=== PATIENT | male | born 1955 | race Caucasian/White ===

== ENCOUNTER 2023-06-27 00:26 | Observation (INO) | payer MEDICARE, SELFPAY ==
[2023-06-26 22:09] VITALS: BP 128/78
[2023-06-26] MEDS: GlucaGen 1 MG IV (22:35)
[2023-06-26 22:36] VITALS: BMI 27.5
--- NOTE | 2023-06-26 23:15 | CON.MD ---
Consultation - Medical
-
dictated.
had choking episode about 3 hrs ago, with dyspnea, desaturations, vomited and now feels much better, still some retrosternal discomfort.
laryngoscopy normal
possibly still has esophageal food impaction, or esophageal spasm, also with significant heart disease.
plans observation. if still symptomatic in AM, may need either esophagram or upper endoscopy by GI.
call us if we can be of further service.
--- NOTE | 2023-06-26 23:21 | ED.GENMED ---
History of Present Illness
General
Chief Complaint: Throat Problem
Source: patient and family
Time Seen by Provider: 06/26/23 22:14
Nursing documentation reviewed up to this point in time: agreed with
Travel History
Have you had any contact with someone who has COVID-19?: No
Do you have any symptoms of coronavirus? Fever > 100 degrees, chills, cough, shortness of breath, sore throat, loss of taste or smell, muscle aches, or headache?: No
History of Present Illness
History of Present Illness:
This is a pleasant 67-year-old male that presents with a food bolus stuck somewhere in his airway/upper digestive track. Around 7:30 PM, patient was eating riley and [place] sprouts. He felt food get stuck and had difficulty breathing. His
states that she slapped him hard on the back and the food moved allowing him to breathe with much effort. Patient was hiccuping. Unable to tolerate saliva. GI consulted but they felt that since it was airway, recommended ENT. I spoke with
Ayaan, who came in to the emergency department to evaluate him. Minutes prior to his arrival, patient had a coughing spasm and the bolus moved allowing him to breathe easier. Patient had bedside endoscopy, and no foreign body was seen in the upper
airway. Patient resting comfortably at this point.
Past History
Past History
ED Past Medical History: Asthma, CAD, CHF, COPD, GERD, HTN, Hypercholesterolemia and Other (Kidney stones, Gastritis, Esophagitis,)
ED Past Surgical History: Cholecystectomy and Orthopedic
Social History
Tobacco: Non-smoker
Alcohol: Daily ([place]ito 6-8 oz)
Drug: None
Personal:
Living: with family
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
Family History
Family History: Other; Negative Sudden
Review of Systems
Review of Systems
Allergies reviewed?: Yes
All Other Systems: ROS reviewed and negative except as documented in HPI and ROS
Respiratory: Reports trouble breathing
ABD/GI: Reports nausea
: Reports no symptoms
Neurological: Reports no symptoms
Phy Exam
General Physical Exam
General Presentation: moderate distress
General age: appears stated age
General Skin: diaphoretic
General Habitus: normal
General Mental: anxious and tearful
General Hydration: appears well hydrated
ENT Exam
ENT Exam: EOMI, pharynx normal, neck supple and normocephalic
Eye Exam
Eye Exam: PERRL, cornea clear and conjunctiva normal
Cardiovascular Exam
Cardiovascular Exam: tachycardia
Pulmonary Exam
Pulmonary Exam: other (Stridor present)
Respiratory Effort: tachypnea
Oxygen Status: oxygen 2 liters via NC
Respirations: labored
Gastrointestinal Exam
Gastrointestinal Exam: normal bowel sounds, non tender, soft, no organomegaly, no pulsatile mass and non distended
Neurological Exam
Neurological Exam: alert, oriented x3, no motor deficits and speech normal
Musculoskeletal Exam
Musculoskeletal Exam: full ROM and no edema
Skin Exam
Skin Exam: normal color, warm/dry, no rash and no petechia
Psychiatric Exam
Psychiatric Exam: normal mood/affect
Course
Orders/Labs/Results
Orders:
Orders
06/26/23 22:17
Glucagon [GlucaGen] 1 mg .ROUTE .STK-MED ONE
06/26/23 22:26
Glucagon [GlucaGen] 1 mg .ROUTE .STK-MED ONE
06/26/23 22:34
Glucagon [GlucaGen] 1 mg IV NOW STA
06/26/23 22:39
Chest X-ray Portable [CR Chest Portable - 1 View] Stat
Comment:
Reason For Exam: food impaction
Reason Study Needs to be Portable: Patient Unstable
If Reason is Other, explain: food impaction
06/26/23 22:58
EKG [Electrocardiogram (*1)] Urgent
Reason for Study: Shortness of Breath
06/26/23 22:59
EKG- Treatment ONCE
06/26/23 23:30
Complete Blood Count/With Diff Urgent
Comprehensive Metabolic Panel Urgent
PTT Urgent
Prothrombin Time Urgent
Troponin I Urgent
Abnormal Lab Results
06/26/23
23:30
WBC 12.6 H 10^3/uL
(4.8-10.8)
RBC 4.40 L 10^6/uL
(4.70-6.10)
MCH 32.0 H pg
(27.0-31.0)
Abs Immat Gran (auto) 0.1 H 10^3/uL
(0-0.05)
Absolute Neuts (auto) 9.0 H 10^3/uL
(1.4-6.5)
Absolute Monos (auto) 0.9 H 10^3/uL
(0.1-0.6)
Absolute Eos (auto) 1.0 H 10^3/uL
(0-0.7)
Lymphocytes % 12.1 L %
(20.5-51.1)
Eosinophils % 8.0 H %
(0-6)
BUN 25 H mg/dl
(9-20)
Creatinine 2.1 H mg/dL
(0.7-1.3)
Glucose 100 H mg/dl
(70-99)
06/26/23 23:30
06/26/23 23:30
Vital Signs
Initial and Last Documented VS:
Initial Vital Signs
Temp Pulse Resp BP Pulse Ox
97.6 F 76 28 128/78 95
06/26/23 22:09 06/26/23 22:09 06/26/23 22:09 06/26/23 22:09 06/26/23 22:09
Last Documented Vital Signs
Temp Pulse Resp BP Pulse Ox
97.6 F 99 16 108/79 96
06/26/23 22:09 06/26/23 23:45 06/26/23 23:45 06/26/23 23:40 06/26/23 23:45
MDM/Problems Addressed
Differential Diagnosis Includes:
Airway including foreign body, esophageal foreign body
MDM/Problems Addressed:
67-year-old male with swallowed foreign body causing him moderate respiratory distress
Chronic conditions affecting care: CAD
*Radiology
Radiology exam reviewed: preliminary read by ED provider
*Pulse Oximetry
Patient hypoxic: yes
*EKG
Interpreted by ED Provider?: Yes
EKG Intrepretation Date: 06/26/23
Interpretation: normal
Heart Rate: 95
Rate: normal
Rhythm: sinus
[place]: normal axis
Interval: normal interval
QRS Pattern: normal QRS
Ischemia: no ischemia
*Amusement Park Ride Mechanic Interpretation
Rate: tachycardiac
Heart Rate: 106
Rhythm: sinus
*Critical Care Note
Total Time (30-74mins, 75-104mins- exclusive of procedures): 45
comment:
Critical care statement: A total of 45 minutes of critical care time was provided for this patient. This time is separate from time utilized to perform the aforementioned documented procedures. Aggregate critical care time includes only time
during which I was engaged in work directly related to the patient's care, as described above, whether at the bedside or elsewhere in the Emergency Department.
Patient Management
Discussion with other providers: Service Line Coordinator (Spoke with Dr. Hines who did not see any foreign body in his airway at this point. Request admission to observe)
Escalation/DeEscalation of care consider admission/obs:
Given patient's cardiac history and the extremis he was in at the beginning of his visit, patient to be brought into the hospital for observation and continued monitoring.
ED Attending Note
-
Portions of this chart may have been created with voice recognition software.� Occasional wrong word or��sound alike� substitutions may have occurred due to the inherent limitations of voice recognition software.
Discharge Plan
Departure
Patient Disposition: Admit
Date of Disposition: 06/26/23
Time of Disposition: 23:33
Admit to: Telemetry
Presentation/result/management discussed w/ accepting MD/DO: Hospitalist
Condition: Good
Discharge Problem:
Esophageal foreign body, Acute respiratory distress
Prescriptions:
No Action
furosemide 40 MG tablet
20 mg PO DAILYPRN PRN (Reason: edema, weight gain)
carvedilol 12.5 MG tablet
12.5 mg PO BID
Patient Comments:
02/13/21 - PT STATED DOSE STILL AT COREG 12.5MG BID
aspirin 81 MG tablet,delayed release (DR/EC)
81 mg PO DAILY
pantoprazole 40 MG tablet,delayed release (DR/EC)
40 mg PO DAILY
multivitamin with folic acid [Tab-A-Flakito] 1 TABLET tablet
1 tab PO DAILY
sildenafil [Viagra] 100 MG tablet
100 mg PO DAILYPRN PRN (Reason: sexually activity) Qty: 0 0RF
Rx Instructions:
Do not take for 1 week post DC. Do not take within 24 hours of nitroglycerin.
nitroglycerin 0.4 MG tablet, sublingual
0.4 mg sublingual [id number] PRN (Reason: CHEST PAIN)
amlodipine 2.5 mg Tablet
2.5 mg PO HS
acetaminophen 500 mg Tablet
1,000 mg PO Q6H PRN (Reason: mild pain)
ezetimibe [Zetia] 10 mg Tablet
10 mg PO HS
levalbuterol tartrate 45 mcg/actuation Hfa Aerosol Inhaler
2 puff INHALATION R Q4 PRN (Reason: sob)
Xarelto 20 mg Tablet
20 mg PO QPM
Hold Instructions: Resume on 03/15/23. HOLD UNTIL FRIDAY evening ~48hrs post op
Entresto 49-51 mg Tablet
1 tab PO BID
fluticasone propion-salmeterol 45-21 mcg/actuation Hfa Aerosol Inhaler
2 puff INHALATION R BID PRN (Reason: sob)
Medical Marijuana
1 dose PO HS PRN (Reason: mild pain/sleep)
Patient Comments:
PT USES BOTH VAPE PEN AND BUD GONZALEZ, FILLS AT [facility]
Referrals:
Hussain Nunez CRNP [Family Provider] -
Interventions
Interventions:
*Risk Screen - Suicide Last Done: 06/26/23 23:35
*General Assessment Last Done: 06/26/23 22:41
*Neglect/Abuse Screening Last Done: 06/26/23 22:41
ED- Fall Risk Assessment Last Done: 06/26/23 23:35
*ED COVID-19 Vaccine History Last Done: 06/26/23 22:41
ED-EENT Assessment Last Done: 06/26/23 22:44
ED- Pulmonary Assessment Last Done: 06/26/23 23:35
[2023-06-26 23:37] LABS: % Basophils 0.6 % (0-2); % Immature Granulocytes 0.4 % (0-0.5); % Lymphocytes 12.1 % (20.5-51.1); % Neutrophils 71.9 % (42.2-75.2); Absolute Basophils 0.1 10^3/uL (0-0.2); Absolute Immature Granulocytes 0.1 10^3/uL (0-0.05); Absolute Lymphocytes 1.5 10^3/uL (1.2-3.4); Absolute Monocytes 0.9 10^3/uL (0.1-0.6); Hematocrit 40.8 % (39.0-52.0); Hemoglobin 14.1 g/dL (13.0-18.0); Mean Corp Hgb Conc. 34.6 g/dL (33.0-37.0); Mean Corpuscular Volume 92.7 fL (80.0-94.0); Mean Platelet Volume 9.3 fL (7.4-10.4); Nucleated Red Blood Cells % 0 % (-); Platelet Count 388 10^3/uL (130-400); Red Cell Dist. Width 13.2 % (11.5-14.5); White Blood Cell Count 12.6 10^3/uL (4.8-10.8)
[2023-06-26 23:40] VITALS: BP 108/79
[2023-06-26 23:55] LABS: INR 1.55; PT 18.7 Sec (11.4-14.6)
[2023-06-26 23:56] LABS: APTT 40.4 Sec (23.4-35.0)
[2023-06-26 23:58] LABS: ALT (SGPT) 16 U/L (0-50); AST (SGOT) 29 U/L (17-59); Albumin 4.3 g/dl (3.5-5.0); Alkaline Phosphatase 59 U/L (38-126); Blood Urea Nitrogen 25 mg/dl (9-20); Calcium 9.7 mg/dl (8.4-10.2); Carbon Dioxide 28 mmol/L (22-30); Chloride 103 mmol/L (98-107); Estimated Creatinine Clearance 38 ml/min; Glucose 100 mg/dl (70-99); Potassium 3.7 mmol/L (3.5-5.1); Sodium 137 mmol/L (135-145); Total Bilirubin 0.7 mg/dl (0.2-1.3); Total Protein 6.8 g/dl (6.3-8.2); eGFR 34.08
[2023-06-27] VITALS (7 sets, daily range): BP systolic 101–121; BP diastolic 67–93; BMI 26.7; BMI 27.3
[2023-06-27 00:01] LABS: Troponin I < 0.012 ng/ml
--- NOTE | 2023-06-27 00:14 | HPS.HSE ---
Family Physician
-
Family Physician: ANIL Gómez
Chief Complaint
-
Shortness of breath after stuck food bolus
History of Present Illness
Patient is a pleasant [age] years old with history of paroxysmal A-fib, CHF, hypertension, hyperlipidemia who came to the ER with food bolus stuck in his airway which happened around 7:30 p.m. while he is eating riley, patient was having coughing,
nausea, vomiting, difficulty breathing, while in the ER patient had severe coughing episodes and he felt the food bolus moved and he started breathing normally.
Patient was seen by ENT in the ER and had a bedside endoscopy with no foreign body seen in the upper airway.
Chest x-ray came back shows no acute finding.
Patient with history of atrial fibrillation, I was told by ED physician that oxygen dropped to 70s during the coughing episodes.
Patient will be admitted overnight observation and will be covered with Augmentin for concern of aspiration.
Medical History
Past Medical History
Past Medical History: Reports Arrhythmia, GERD, HTN, Hypercholesterolemia and Other
Additional Past Medical History:
mergent laparotomy for bowel obstruction with extended right colectomy ileostomy and had a scheduled robotic ileostomy closure on 03/26.
Past Surgical History: Reports Cholecystectomy and Orthopedic
Social History
Tobacco: Non-smoker
Alcohol: Daily
Drug: None
Personal:
Living: With Family
Family History
Family History: Sudden
Allergies / Home Medications
Allergies reflects when Allergies were last updated in [employer].
Home Medications with original date entered in [employer]
Allergy/Medication List:
Allergies
Allergy/AdvReac Type Severity Reaction Status Date / Time
amoxicillin Allergy Nausea / Verified 06/26/23 22:38
Vomiting
anise oil Allergy Rash/SOB Verified 06/26/23 22:38
doxycycline Allergy Vomiting Verified 06/26/23 22:38
meperidine HCl [From Demerol] Allergy Nausea Verified 06/26/23 22:38
pollen extracts Allergy nasal Verified 06/26/23 22:38
congestion,
watery eyes
atorvastatin [From Lipitor] AdvReac Mild Unknown Verified 06/26/23 22:38
rosuvastatin [From Crestor] AdvReac Mild Unknown Verified 06/26/23 22:38
codeine [Codeine] AdvReac UPSET Verified 06/26/23 22:38
STOMACH
pentazocine [From Talwin] AdvReac Confusion, Verified 06/26/23 22:38
hallucinations
Home Medications
furosemide 40 mg tablet 20 mg PO DAILYPRN PRN edema, weight gain 10/01/17
carvedilol 12.5 mg tablet 12.5 mg PO BID Blood pressure 02/11/19
aspirin 81 mg tablet,delayed release 81 mg PO DAILY Blood clot prevention/tx 10/14/19
multivitamin with folic acid 400 mcg tablet (Tab-A-Flakito) 1 tab PO DAILY Supplement 10/14/19
pantoprazole 40 mg tablet,delayed release 40 mg PO DAILY Gastrointestinal issue 10/14/19
sildenafil 100 mg tablet (Viagra) 100 mg PO DAILYPRN PRN sexually activity ##0 10/15/19
nitroglycerin 0.4 mg sublingual tablet 0.4 mg sublingual [id number] PRN CHEST PAIN 02/13/21
acetaminophen 500 mg tablet 1,000 mg PO Q6H PRN mild pain 07/03/22
amlodipine 2.5 mg tablet 2.5 mg PO HS 07/03/22
ezetimibe 10 mg tablet (Zetia) 10 mg PO HS 07/03/22
fluticasone propionate 45 mcg-salmeterol 21 mcg/actuation HFA inhaler 2 puff inhalation R BID PRN sob 07/03/22
levalbuterol tartrate 45 mcg/actuation aerosol inhaler 2 puff inhalation R Q4 PRN sob 07/03/22
rivaroxaban 20 mg tablet (Xarelto) 20 mg PO QPM 07/03/22
sacubitril 49 mg-valsartan 51 mg tablet (Entresto) 1 tab PO BID 07/03/22
Medical Marijuana 1 dose PO HS PRN mild pain/sleep 06/26/23
Review of Systems
-
A 12 point ROS was completed and negative except as noted: Yes
Constitutional: Denies Fever, Weight Gain, Weight Loss, Fatigue or Sleep Disturbance
EENT: Reports Sore Throat; Denies Tearing, Mouth Pain, Mouth Swelling or Runny Nose
Respiratory: Reports Cough and Trouble Breathing; Denies Hemoptysis
Cardiac: Reports Chest Pain, Diaphoresis and Palpitations; Denies Syncope
Abdomen/GI: Reports Nausea and Vomiting; Denies Abdominal Pain, Diarrhea, Constipated, Bloody Stools or Black Stools
: Denies Dysuria, Frequency, Flank Pain, Incontinence, Difficulty Voiding, Urgency, Bleeding or Dark Urine
Musculoskeletal: Denies Joint Pain, Joint Swelling, Muscle Pain, Muscle Stiffness or Edema
Skin: Denies Itching or Rash
Neurological: Denies Dizzy, Headache, Weakness or Numbness
Endocrine: Denies Polyuria, Polydipsia or Temp Intolerance
Hematologic/Lymphatic: Denies Bleeding, Swollen Glands or Bruising
Psych: Reports Calm; Denies Depression, Anxiety or Panic Disorder
Physical Exam
Vital Signs
Vital Signs
Temp Pulse Resp BP Pulse Ox
97.6 F 99 16 108/79 96
06/26/23 22:09 06/26/23 23:45 06/26/23 23:45 06/26/23 23:40 06/26/23 23:45
Physical Exam
General: Well Developed, Well Nourished, No Apparent Distress, Comfortable and Good Appetite; No Pain, Chills or Sweats
HEENT: NormoCephalic, Moist mucous membranes, Atraumatic, Good Dentition, PERRLA, Nose Appears Normal and Ears Appear Normal
Respiratory: Rales
Cardiac: S1/S2 and Regular Rhythm
Breast: Deferred by me
GI: Soft, Non Tender, Non Distended and Normal Bowel Sounds
Genito-urinary: Deferred by me
Musculoskeletal: No Clubbing, No Cyanosis and No Edema
Skin: Warm; No Rash, Jaundice, Ulcers, Lesions or Decubitus Ulcers
Neuro: Awake, Alert, Oriented, AO x 3, No Motor Deficits, Nonfocal/grossly intact and Cranial Nerves Intact
Hematologic/Lymphatic: No Lymphadenopathy
Psych: Calm
Laboratory Results
-
06/26/23 23:30
06/26/23 23:30
Laboratory Results
PT 18.7 Sec (11.4-14.6) H 06/26/23 23:30
INR 1.55 06/26/23 23:30
APTT 40.4 Sec (23.4-35.0) H 06/26/23 23:30
Total Bilirubin 0.7 mg/dl (0.2-1.3) 06/26/23 23:30
AST 29 U/L (17-59) 06/26/23 23:30
ALT 16 U/L (0-50) 06/26/23 23:30
Alkaline Phosphatase 59 U/L (38-126) 06/26/23 23:30
Troponin I < 0.012 ng/ml 06/26/23 23:30
Data Reviewed
-
Diagnostic Radiology: Report Reviewed by me
CT Scan: Report Reviewed by me
Medical Tests (Nuc Med, Echo, EKG etc): Report Reviewed by me
Lab Data: Labs Reviewed by me
Old Records: Reviewed
Impression/Plan
-
IMPRESSION:
Patient is 67 years old with history of paroxysmal A-fib and CHF came to the ER with respiratory distress secondary to food bolus possible airway which has been cleared in the ER and bedside endoscopy in ED shows patent airway, will be admitted as
observation.
PLAN:
Acute hypoxic respiratory failure secondary to food bolus.
Cleared in the ER with frequent coughing and vomiting.
Patient feeling better.
Seen by ENT and bedside endoscopy shows no evidence of foreign body in the airway.
Currently continue appropriate oxygen saturation.
Continue playground monitor.
Augmentin for aspiration (no true allergy to amoxicillin, patient has side effect nausea and vomiting, will order Zofran).
Repeat chest x-ray in a.m.
Possible discharge tomorrow if still
Paroxysmal atrial fibrillation
Patient currently sinus rhythm
Troponin negative
hospital monitor
Continue carvedilol and Xarelto
History of hyperlipidemia
Continue statin
History of hypertension
Continue home meds
Chronic diastolic CHF
Continue carvedilol.
Continue Entresto
No evidence of volume overload
Echo from 2020 showed Normal left ventricular chamber size and overall normal systolic function; left
�ventricular ejection fraction is 60-65% by visual assessment.
CODE STATUS: Full code
DVT prophylaxis: Xarelto
Diet: Cardiac
[2023-06-27] MEDS: XARELTO 20 MG PO (00:55)
[2023-06-27] MEDS: COREG 12.5 MG PO ×2 (00:55→09:18)
[2023-06-27] MEDS: ENTRESTO 49 MG/51 MG 1 TAB PO ×2 (00:55→09:18)
[2023-06-27] MEDS: ATIVAN 0.5 MG IV (00:58)
[2023-06-27] MEDS: AUGMENTIN 200 MG/5 ML 500 MG PO ×2 (01:58→09:29)
[2023-06-27] MEDS: TYLENOL 650 MG PO (02:00)
--- NOTE | 2023-06-27 02:53 | PTCARENOTE ---
Patient received from the ED via stretcher. Patient ambulated into the room. AAOx3, VSS. 95% on RA. Patient complaining of pain from coughing. Has a frequent, dry cough with white/clear sputum. Able to take PO medications with water, see MAR.
Patient made comfortable in the room and call cancino is within reach.
[2023-06-27] MEDS: DUONEB 3 ML INH ×2 (03:22→11:36)
[2023-06-27 06:36] LABS: Hematocrit 38.2 % (39.0-52.0); Hemoglobin 13.1 g/dL (13.0-18.0); Mean Corp Hgb Conc. 34.3 g/dL (33.0-37.0); Mean Corpuscular Hgb 32.2 pg (27.0-31.0); Mean Corpuscular Volume 93.9 fL (80.0-94.0); Mean Platelet Volume 9.6 fL (7.4-10.4); Platelet Count 346 10^3/uL (130-400); Red Blood Cell Count 4.07 10^6/uL (4.70-6.10); Red Cell Dist. Width 13.2 % (11.5-14.5); White Blood Cell Count 10.4 10^3/uL (4.8-10.8)
[2023-06-27 06:59] LABS: Troponin I < 0.012 ng/ml
[2023-06-27 07:30] LABS: Blood Urea Nitrogen 31 mg/dl (9-20); Calcium 9.1 mg/dl (8.4-10.2); Carbon Dioxide 30 mmol/L (22-30); Chloride 101 mmol/L (98-107); Estimated Creatinine Clearance 41 ml/min; Glucose 98 mg/dl (70-99); Sodium 138 mmol/L (135-145); eGFR 36.13
[2023-06-27] MEDS: THERAGRAN 1 TABLET PO (09:18)
[2023-06-27] MEDS: PROTONIX 40 MG PO (09:18)
[2023-06-27] MEDS: ASPIR LOW (ENTERIC COATED) 81 MG PO (09:18)
--- NOTE | 2023-06-27 14:23 | W.DCSUMMARY ---
Discharge Summary
Discharge Data
Date of Admission: 06/27/23
Date of Discharge: 06/28/23
-
Pending Results: No
Hospital Course
Discharge diagnosis:
Acute hypoxic respiratory failure secondary to esophageal food impaction
Esophageal spasm
Reactive airway disease
Allergic rhinitis
Paroxysmal atrial fibrillation on Xarelto
Hyperlipidemia
Hypertension
Chronic diastolic congestive heart failure
Consults: ENT
Procedures:
Bedside laryngoscopy grossly normal
Hospital course:
67-year-old male with a past medical history of paroxysmal atrial fibrillation on Xarelto, allergic rhinitis, and CHF was admitted for choking secondary to esophageal food impaction.
Patient vomited in the emergency room, and felt better. Patient was seen by ENT in the ER. Bedside laryngoscopy was grossly normal.
Patient was monitored in the hospital. His oxygenation was normal on room air. He tolerated a diet.
He was bronchospastic on exam. He does report a history of allergic rhinitis and reactive airway disease. He was treated with oral prednisone, will be discharged on an oral prednisone taper. He is medically stable for discharge. He needs to
follow-up with his primary care doctor in 1 week.
Disposition: Home self-care
Discharge Plan
-
Patient Disposition: Home (Routine Discharge)
Discharge Diagnosis/Procedures: Acute hypoxic respiratory failure secondary to fluid bolus, reactive airway disease, paroxysmal atrial fibrillation
Condition: Fair
Diet: Low Fat and Low Cholesterol
Activity: As tolerated
Driving Restrictions: As prior to admission
Activity Restrictions/Additional Instructions:
Please follow-up with your usual GI doctor as needed.
Referrals:
Hussain Nunez CRNP [Family Provider] - in one week
Prescriptions:
New
amoxicillin-pot clavulanate 875-125 mg tablet
1 tab PO BID 7 Days Qty: 14 0RF
prednisone 10 mg tablet
10 mg PO DAILY Qty: 30 0RF
Rx Instructions:
4 t daily x 3 days, then
3 t daily x 3 days, then
2 t daily x 3 days, then
1 t daily x 3 days, then stop
Continued
furosemide 40 MG tablet
20 mg PO DAILYPRN PRN (Reason: edema, weight gain)
carvedilol 12.5 MG tablet
12.5 mg PO BID
Patient Comments:
02/13/21 - PT STATED DOSE STILL AT COREG 12.5MG BID
aspirin 81 MG tablet,delayed release (DR/EC)
81 mg PO DAILY
pantoprazole 40 MG tablet,delayed release (DR/EC)
40 mg PO DAILY
multivitamin with folic acid [Tab-A-Flakito] 1 TABLET tablet
1 tab PO DAILY
sildenafil [Viagra] 100 MG tablet
100 mg PO DAILYPRN PRN (Reason: sexually activity) Qty: 0 0RF
Rx Instructions:
Do not take for 1 week post [place]. Do not take within 24 hours of nitroglycerin.
nitroglycerin 0.4 MG tablet, sublingual
0.4 mg sublingual [id number] PRN (Reason: CHEST PAIN)
amlodipine 2.5 mg Tablet
2.5 mg PO HS
acetaminophen 500 mg Tablet
1,000 mg PO Q6H PRN (Reason: mild pain)
ezetimibe [Zetia] 10 mg Tablet
10 mg PO HS
levalbuterol tartrate 45 mcg/actuation Hfa Aerosol Inhaler
2 puff INHALATION R Q4 PRN (Reason: sob)
Xarelto 20 mg Tablet
20 mg PO QPM
Hold Instructions: Resume on 07/10/22. HOLD UNTIL FRIDAY evening ~48hrs post op
Entresto 49-51 mg Tablet
1 tab PO BID
fluticasone propion-salmeterol 45-21 mcg/actuation Hfa Aerosol Inhaler
2 puff INHALATION R BID PRN (Reason: sob)
Medical Marijuana
1 dose PO HS PRN (Reason: mild pain/sleep)
Patient Comments:
PT USES BOTH VAPE PEN AND BUD GONZALEZ, FILLS AT [facility]
Discharge Orders:
Discharge Patient (As Directed); Ordered 06/27/23
Ordered By: Patrick Grant
Discharge Date and Time
Discharge Date/Time: 06/27/23 15:49
[2023-06-27] MEDS: DELTASONE 50 MG PO (14:30)
--- NOTE | 2023-06-27 16:54 | CM ---
Alert awake oriented patient who lives with his Jazmyne who lives in a split story home with 5 step to enter and 7 steps to bed and bathroom. He is independent in driving and in all activities of daily living.He was offered VN he declined need.Pacheco
copy given explained ,Signed PACHECO on chart.
[facility] [place] history
[facility] [place]
PCP Evens Nunez CLAIMS SERVICE REPRESENTATIVE
PLAN Home Declined VN
--- NOTE | 2023-07-02 01:38 | ED.GENMED ---
History of Present Illness
<ANIL Stallings - Last Filed: 07/02/23 01:38>
General
Chief Complaint: Throat Problem
Time Seen by Provider: 06/26/23 22:14
Travel History
Have you had any contact with someone who has COVID-19?: No
Do you have any symptoms of coronavirus? Fever > 100 degrees, chills, cough, shortness of breath, sore throat, loss of taste or smell, muscle aches, or headache?: No
<Nathan Tubbs DO - Last Filed: 07/06/23 21:51>
History of Present Illness
History of Present Illness:
.
Past History
<ANIL Stallings - Last Filed: 07/02/23 01:38>
Past History
ED Past Medical History: Asthma, CAD, CHF, COPD, GERD, HTN, Hypercholesterolemia and Other (Kidney stones, Gastritis, Esophagitis,)
ED Past Surgical History: Cholecystectomy and Orthopedic
Social History
Tobacco: Non-smoker
Alcohol: Daily (Captin Rito 6-8 oz)
Drug: None
Personal:
Living: with family
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
Family History
Family History: Other; Negative Sudden
<Nathan Tubbs DO - Last Filed: 07/06/23 21:51>
Physical Exam
Physical Exam:
.
Course
<ANIL Stallings - Last Filed: 07/02/23 01:38>
Orders/Labs/Results
Orders:
Orders
06/26/23 22:17
Glucagon [GlucaGen] 1 mg .ROUTE .STK-MED ONE
06/26/23 22:26
Glucagon [GlucaGen] 1 mg .ROUTE .STK-MED ONE
06/26/23 22:34
Glucagon [GlucaGen] 1 mg IV NOW STA
06/26/23 22:39
Chest X-ray Portable [CR Chest Portable - 1 View] Stat
Comment:
Reason For Exam: food impaction
Reason Study Needs to be Portable: Patient Unstable
If Reason is Other, explain: food impaction
06/26/23 22:58
EKG [Electrocardiogram (*1)] Urgent
Reason for Study: Shortness of Breath
06/26/23 22:59
EKG- Treatment ONCE
06/26/23 23:30
Complete Blood Count/With Diff Urgent
Comprehensive Metabolic Panel Urgent
PTT Urgent
Prothrombin Time Urgent
Troponin I Urgent
06/27/23 00:07
Admit/Transfer Patient As Directed
Co-Sign Provider:
Level of Care: Observation services
Assign to:: Telemetry
Physician / Group: eun garcia
Diagnosis: Acute hypoxic respiratory failure
Reason for Telemetry: Arrhythmia
Date to Stop Telemetry: 06/30/23
Time to Stop Telemetry: 11:00
Reason for Hospitalization: Acute hypoxic respiratory failure
06/27/23 00:10
Code Status As Directed
Resuscitation Status: Full Code
06/27/23 00:15
Rivaroxaban [Xarelto] 20 mg PO QPM
Sacubitril 49/Valsartan 51 [Entresto 49 mg/51 mg] 1 tab PO BID
06/27/23 01:00
Amoxicillin 875 mg/Clav 125 mg [Augmentin 875 mg/125 mg] 1 tablet PO Q12
Carvedilol [Coreg] 12.5 mg PO BID
06/27/23 01:36
Acetaminophen [Tylenol] 1,000 mg PO Q6H PRN
Acetaminophen [Tylenol] 650 mg PO Q4HPRN PRN
Fluticasone/Salmeterol 45/21 [Advair Hfa 45/21 Mcg Inhaler] 2 puff INH R BID PRN
Furosemide [Lasix] 20 mg PO DAILYPRN PRN
Ipratropium/Albuterol Sulfate [Duoneb] 3 ml INH R Q4HPRN PRN
Levalbuterol Tartrate [Xopenex Hfa 45 Mcg Inhaler] 2 puff INH R Q4 PRN
Mag Hydrox/Al Hydrox/Simeth [Maalox] 30 ml PO Q6HPRN PRN
Nitroglycerin Sublingual [Nitrostat (Sublingual)] 0.4 mg SL [id number] PRN
Ondansetron Injectable [Zofran] 4 mg IV Q6HPRN PRN
06/27/23 01:36
Activity As Directed
Activity Level: As Tolerated
Vital Signs As Directed
Frequency: Per unit guidelines
06/27/23 Breakfast
Cholesterol Lowering
At Your Request: Full Participation
Cholesterol Lowering: Sodium, 2 Gram
Chest X-ray Portable [CR Chest Portable - 1 View] IN AM
Comment:
Reason For Exam: Rule out aspiration pneumonia
Reason Study Needs to be Portable: Other
06/27/23 06:25
Basic Metabolic Panel IN AM
Complete Blood Count/No Diff IN AM
Troponin I IN AM
06/27/23 08:00
Aspirin Low Dose EC [Aspir Low (Enteric Coated)] 81 mg PO DAILY
Multivitamin [Theragran] 1 tablet PO DAILY
Pantoprazole [Protonix] 40 mg PO DAILY
06/27/23 22:00
Amlodipine [Norvasc] 2.5 mg PO HS
Ezetimibe [Zetia] 10 mg PO HS
06/30/23 11:00
DC Protocol for Telemetry ONCE
Abnormal Lab Results
06/26/23
23:30
WBC 12.6 H 10^3/uL
(4.8-10.8)
RBC 4.40 L 10^6/uL
(4.70-6.10)
MCH 32.0 H pg
(27.0-31.0)
Abs Immat Gran (auto) 0.1 H 10^3/uL
(0-0.05)
Absolute Neuts (auto) 9.0 H 10^3/uL
(1.4-6.5)
Absolute Monos (auto) 0.9 H 10^3/uL
(0.1-0.6)
Absolute Eos (auto) 1.0 H 10^3/uL
(0-0.7)
Lymphocytes % 12.1 L %
(20.5-51.1)
Eosinophils % 8.0 H %
(0-6)
PT 18.7 H Sec
(11.4-14.6)
APTT 40.4 H Sec
(23.4-35.0)
BUN 25 H mg/dl
(9-20)
Creatinine 2.1 H mg/dL
(0.7-1.3)
Glucose 100 H mg/dl
(70-99)
06/26/23 23:30
06/26/23 23:30
Vital Signs
Initial and Last Documented VS:
Initial Vital Signs
Temp Pulse Resp BP Pulse Ox
97.6 F 76 28 128/78 95
06/26/23 22:09 06/26/23 22:09 06/26/23 22:09 06/26/23 22:09 06/26/23 22:09
Last Documented Vital Signs
Temp Pulse Resp BP Pulse Ox
98.1 F 85 18 101/67 96
06/27/23 15:00 06/27/23 15:00 06/27/23 15:00 06/27/23 15:00 06/27/23 15:00
Mariellelt;Nathan Tubbs, DO - Last Filed: 07/06/23 21:51>
Orders/Labs/Results
Orders:
Orders
06/26/23 22:17
Glucagon [GlucaGen] 1 mg .ROUTE .STK-MED ONE
06/26/23 22:26
Glucagon [GlucaGen] 1 mg .ROUTE .STK-MED ONE
06/26/23 22:34
Glucagon [GlucaGen] 1 mg IV NOW STA
06/26/23 22:39
Chest X-ray Portable [CR Chest Portable - 1 View] Stat
Comment:
Reason For Exam: food impaction
Reason Study Needs to be Portable: Patient Unstable
If Reason is Other, explain: food impaction
06/26/23 22:58
EKG [Electrocardiogram (*1)] Urgent
Reason for Study: Shortness of Breath
06/26/23 22:59
EKG- Treatment ONCE
06/26/23 23:30
Complete Blood Count/With Diff Urgent
Comprehensive Metabolic Panel Urgent
PTT Urgent
Prothrombin Time Urgent
Troponin I Urgent
06/27/23 00:07
Admit/Transfer Patient As Directed
Co-Sign Provider:
Level of Care: Observation services
Assign to:: Telemetry
Physician / Group: eun garcia
Diagnosis: Acute hypoxic respiratory failure
Reason for Telemetry: Arrhythmia
Date to Stop Telemetry: 06/30/23
Time to Stop Telemetry: 11:00
Reason for Hospitalization: Acute hypoxic respiratory failure
06/27/23 00:10
Code Status As Directed
Resuscitation Status: Full Code
06/27/23 00:15
Rivaroxaban [Xarelto] 20 mg PO QPM
Sacubitril 49/Valsartan 51 [Entresto 49 mg/51 mg] 1 tab PO BID
06/27/23 01:00
Amoxicillin 875 mg/Clav 125 mg [Augmentin 875 mg/125 mg] 1 tablet PO Q12
Carvedilol [Coreg] 12.5 mg PO BID
06/27/23 01:36
Acetaminophen [Tylenol] 1,000 mg PO Q6H PRN
Acetaminophen [Tylenol] 650 mg PO Q4HPRN PRN
Fluticasone/Salmeterol 45/21 [Advair Hfa 45/21 Mcg Inhaler] 2 puff INH R BID PRN
Furosemide [Lasix] 20 mg PO DAILYPRN PRN
Ipratropium/Albuterol Sulfate [Duoneb] 3 ml INH R Q4HPRN PRN
Levalbuterol Tartrate [Xopenex Hfa 45 Mcg Inhaler] 2 puff INH R Q4 PRN
Mag Hydrox/Al Hydrox/Simeth [Maalox] 30 ml PO Q6HPRN PRN
Nitroglycerin Sublingual [Nitrostat (Sublingual)] 0.4 mg SL [id number] PRN
Ondansetron Injectable [Zofran] 4 mg IV Q6HPRN PRN
06/27/23 01:36
Activity As Directed
Activity Level: As Tolerated
Vital Signs As Directed
Frequency: Per unit guidelines
06/27/23 Breakfast
Cholesterol Lowering
At Your Request: Full Participation
Cholesterol Lowering: Sodium, 2 Gram
Chest X-ray Portable [CR Chest Portable - 1 View] IN AM
Comment:
Reason For Exam: Rule out aspiration pneumonia
Reason Study Needs to be Portable: Other
06/27/23 06:25
Basic Metabolic Panel IN AM
Complete Blood Count/No Diff IN AM
Troponin I IN AM
06/27/23 08:00
Aspirin Low Dose EC [Aspir Low (Enteric Coated)] 81 mg PO DAILY
Multivitamin [Theragran] 1 tablet PO DAILY
Pantoprazole [Protonix] 40 mg PO DAILY
06/27/23 22:00
Amlodipine [Norvasc] 2.5 mg PO HS
Ezetimibe [Zetia] 10 mg PO HS
06/30/23 11:00
DC Protocol for Telemetry ONCE
Abnormal Lab Results
06/26/23
23:30
WBC 12.6 H 10^3/uL
(4.8-10.8)
RBC 4.40 L 10^6/uL
(4.70-6.10)
MCH 32.0 H pg
(27.0-31.0)
Abs Immat Gran (auto) 0.1 H 10^3/uL
(0-0.05)
Absolute Neuts (auto) 9.0 H 10^3/uL
(1.4-6.5)
Absolute Monos (auto) 0.9 H 10^3/uL
(0.1-0.6)
Absolute Eos (auto) 1.0 H 10^3/uL
(0-0.7)
Lymphocytes % 12.1 L %
(20.5-51.1)
Eosinophils % 8.0 H %
(0-6)
PT 18.7 H Sec
(11.4-14.6)
APTT 40.4 H Sec
(23.4-35.0)
BUN 25 H mg/dl
(9-20)
Creatinine 2.1 H mg/dL
(0.7-1.3)
Glucose 100 H mg/dl
(70-99)
06/26/23 23:30
06/26/23 23:30
Vital Signs
Initial and Last Documented VS:
Initial Vital Signs
Temp Pulse Resp BP Pulse Ox
97.6 F 76 28 128/78 95
06/26/23 22:09 06/26/23 22:09 06/26/23 22:09 06/26/23 22:09 06/26/23 22:09
Last Documented Vital Signs
Temp Pulse Resp BP Pulse Ox
98.1 F 85 18 101/67 96
06/27/23 15:00 06/27/23 15:00 06/27/23 15:00 06/27/23 15:00 06/27/23 15:00
<Nathan Tubbs DO - Last Filed: 07/06/23 21:51>
*Critical Care Note
Total Time (30-74mins, 75-104mins- exclusive of procedures): Not Applicable
ED Attending Note
<ANIL Stallings - Last Filed: 07/02/23 01:38>
-
Portions of this chart may have been created with voice recognition software.� Occasional wrong word or��sound alike� substitutions may have occurred due to the inherent limitations of voice recognition software.
Discharge Plan
Departure
Patient Disposition: Admit
Date of Disposition: 06/26/23
Time of Disposition: 23:33
Admit to: Telemetry
Presentation/result/management discussed w/ accepting MD/DO: Hospitalist
Condition: Good
Discharge Problem:
Esophageal foreign body, Acute respiratory distress
Interventions
Interventions:
*Risk Screen - Suicide Last Done: 06/26/23 23:35
*General Assessment Last Done: 06/26/23 22:41
*Neglect/Abuse Screening Last Done: 06/26/23 22:41
ED- Fall Risk Assessment Last Done: 06/26/23 23:35
*ED COVID-19 Vaccine History Last Done: 06/26/23 22:41
*Nursing Disposition Last Done: 06/27/23 01:28
ED-EENT Assessment Last Done: 06/26/23 22:44
ED- Pulmonary Assessment Last Done: 06/26/23 23:35
Discharge Date and Time
Discharge Date/Time: 06/27/23 01:29
== END 2023-06-27 15:49 | disposition home or self-care (01) ==
LOC: 4 EAST ACU 00:26
PROVIDERS: ADMITTING PHYSICIAN General Practice; ATTENDING PHYSICIAN Family Medicine; EMERGENCY PHYSICIAN Student in an Organized Health Care Education/Training Program; FAMILY PHYSICIAN Nurse Practitioner Family; OTHER PHYSICIAN Otolaryngology
DX: K22.4 Dyskinesia of esophagus (principal); R05.9 Cough, unspecified; E78.00 Pure hypercholesterolemia, unspecified; I11.0 Hypertensive heart disease with heart failure; K21.9 Gastro-esophageal reflux disease without esophagitis; I50.32 Chronic diastolic (congestive) heart failure; F10.90 Alcohol use, unspecified, uncomplicated; I48.0 Paroxysmal atrial fibrillation; I25.2 Old myocardial infarction; J44.9 Chronic obstructive pulmonary disease, unspecified; J96.01 Acute respiratory failure with hypoxia; R11.10 Vomiting, unspecified; I25.10 Atherosclerotic heart disease of native coronary artery without angina pectoris; Z87.442 Personal history of urinary calculi; Z79.82 Long term (current) use of aspirin; Z79.51 Long term (current) use of inhaled steroids; Z90.49 Acquired absence of other specified parts of digestive tract; Z88.1 Allergy status to other antibiotic agents; Z88.5 Allergy status to narcotic agent; Z88.0 Allergy status to penicillin; Z88.8 Allergy status to other drugs, medicaments and biological substances
CPT/HCPCS: 71045; 80048; 80053; 84484; 85025; 85027; 85610; 85730; 93005; 94640; 96374; 99291; G0378; J1610

== ENCOUNTER 2023-09-17 12:22 | Emergency (ER) | payer MEDICARE, SELFPAY ==
[2023-09-17] VITALS (7 sets, daily range): BP systolic 101–111; BP diastolic 67–78; PULSE 74–84; BMI 29.4
[2023-09-17 13:03] LABS: % Basophils 0.7 % (0-2); % Eosinophils 7.1 % (0-6); % Immature Granulocytes 0.3 % (0-0.5); % Lymphocytes 14.9 % (20.5-51.1); % Monocytes 9.7 % (1.7-9.3); % Neutrophils 67.3 % (42.2-75.2); Absolute Basophils 0.1 10^3/uL (0-0.2); Absolute Eosinophils 0.7 10^3/uL (0-0.7); Absolute Lymphocytes 1.5 10^3/uL (1.2-3.4); Absolute Neutrophils 6.9 10^3/uL (1.4-6.5); Hematocrit 44.2 % (39.0-52.0); Hemoglobin 14.5 g/dL (13.0-18.0); Mean Corp Hgb Conc. 32.8 g/dL (33.0-37.0); Mean Corpuscular Hgb 31.4 pg (27.0-31.0); Mean Corpuscular Volume 95.7 fL (80.0-94.0); Mean Platelet Volume 9.4 fL (7.4-10.4); Nucleated Red Blood Cells % 0 % (-); Platelet Count 448 10^3/uL (130-400); Red Blood Cell Count 4.62 10^6/uL (4.70-6.10); Red Cell Dist. Width 13.2 % (11.5-14.5); White Blood Cell Count 10.3 10^3/uL (4.8-10.8)
[2023-09-17 13:16] LABS: INR 1.66; PT 19.7 Sec (11.4-14.6)
[2023-09-17 13:32] LABS: Troponin I 0.017 ng/ml
[2023-09-17 13:37] LABS: Blood Urea Nitrogen 30 mg/dl (9-20); Calcium 9.1 mg/dl (8.4-10.2); Carbon Dioxide 24 mmol/L (22-30); Chloride 101 mmol/L (98-107); Glucose 106 mg/dl (70-99); Sodium 133 mmol/L (135-145)
[2023-09-17] MEDS: TYLENOL 1000 MG PO (14:37)
--- NOTE | 2023-09-17 14:50 | ED.GENMED ---
History of Present Illness
General
Chief Complaint: Fainting/Passed Out
Source: patient
Exam Limitations: none
Time Seen by Provider: 09/17/23 14:21
Nursing documentation reviewed up to this point in time: agreed with
Travel History
Have you had any contact with someone who has COVID-19?: No
Do you have any symptoms of coronavirus? Fever > 100 degrees, chills, cough, shortness of breath, sore throat, loss of taste or smell, muscle aches, or headache?: No
History of Present Illness
History of Present Illness:
67-year-old male with a past medical history of hypertension, hyperlipidemia, CHF, CAD, atrial fibrillation on Eliquis, asthma who presents to the emergency department for evaluation after syncopal event and subsequent right knee injury. Patient
reports that he had a normal day yesterday was feeling fine. He says that he woke up in the middle the night to go to the bathroom and he began to feel dizzy. He says he had some palpitations. He says that he went down to his knees and passed
out, fell backwards with his legs underneath him. He does not believe he hit his head. He says that he felt immediate pain in his right knee. He was able to get up and limped back to bed. Continue to have knee pain as the day went on and so he
came to the emergency room for assessment. He says that he did check his heart rate throughout the morning and had 2 events where he was told he could be in atrial fibrillation and he wonders if that may have played a role in his syncope. He
currently denies any dizziness, chest pain, shortness of breath. Denies any abdominal or flank pain. He says he did not hit his head and denies any headache or neck pain. He denies any back pain. His only complaint right now is right knee pain.
He sees Dr. Ирина Sun for cardiology.
Past History
Past History
ED Past Medical History: Asthma, CAD, CHF, COPD, GERD, HTN, Hypercholesterolemia and Other (Kidney stones, Gastritis, Esophagitis,)
ED Past Surgical History: Cholecystectomy and Orthopedic
Social History
Tobacco: Non-smoker
Alcohol: Daily (Jyoti Rito 6-8 oz)
Drug: None
Personal:
Living: with family
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
Family History
Family History: Other; Negative Sudden
Review of Systems
Review of Systems
All Other Systems: ROS reviewed and negative except as documented in HPI and ROS
Constitutional: Denies fever or chills
EENT: Denies sore throat or runny nose
Respiratory: Denies cough or trouble breathing
Cardiac: Reports palpitations and syncope; Denies chest pain or diaphoresis
ABD/GI: Denies abdominal pain, nausea, vomiting or diarrhea
: Denies flank pain
Musculoskeletal: Reports joint pain (Knee pain); Denies neck pain or back pain
Neurological: Reports dizzy; Denies headache, weakness or numbness
Phy Exam
Physical Exam
Physical Exam:
General: Awake, alert, oriented x3; no acute distress
Head: Normocephalic, atraumatic
Eyes: Conjunctiva normal, EOMI, pupils equal round reactive to light bilaterally
Throat: Airway intact, handling secretions
Neck: Trachea midline, no cervical spine tenderness
Lungs: Clear to auscultation bilaterally, no wheezing, rales, rhonchi
Heart: Regular rate and rhythm, no murmurs, gallops, or rubs
Abd: Soft, non distended, nontender with no palpable masses
Neuro: Cranial nerves grossly intact, speech fluid, no gross motor or sensory deficits
Skin: Minor abrasions to the knees bilaterally
Extremities: Patient has swelling of the right knee and joint effusion tenderness over the lateral joint line, pain with manipulation of the patella; no palpable defect in the quadriceps or patellar tendon; he has pain on any attempt at passive
range of motion of the right knee; he has no swelling of the right lower leg, ankle, foot and has a good right DP pulse with brisk capillary refill left foot; left lower extremity Minor abrasion to the left knee but full range of motion with no
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
Scores
Heart Failure Risk
Heart Failure Risk Score: Not Applicable
Heart Score for Chest Pain Patients
STEMI patient?: Not applicable
[place] Syncope Rule
Conjestive Heart Failure History: Yes
Hematocrit <30%: No
EKG Abnormal (New changes, non NSR on EKG/Monitor): No
Shortness of Breath Symptoms: No
Systolic BP <90 mmHg at Triage: No
Patient is high risk for syncope: Yes
Withdrawal Assessment of Alcohol
Withdrawal Assessment Completed?: Not applicable
Course
Orders/Labs/Results
Orders:
Orders
09/17/23 12:28
EKG [Electrocardiogram (*1)] Urgent
Reason for Study: Vertigo / Dizzy
EKG- Treatment ONCE
09/17/23 12:36
Knee, Right 4 or More Views [CR Knee- Right 4 Or More View*] Urgent
Comment:
Reason For Exam: fall last night, pain
09/17/23 12:44
Basic Metabolic Panel Urgent
Complete Blood Count/With Diff Urgent
Prothrombin Time Urgent
Troponin I Urgent
09/17/23 14:30
Acetaminophen [Tylenol] 1,000 mg PO NOW STA
09/17/23 14:31
Ice Pack-Treatment DIRECTED
Location: right knee
09/17/23 14:34
CARDIOLOGY CONSULT Urgent
Consulting Provider: Anshu Salomon
Was physician already notified: Yes
09/17/23 14:57
Orthostatic VS- Treatment ONCE
09/17/23 15:46
Oxycodone [Roxicodone] 5 mg PO NOW STA
09/17/23 17:46
Knee Immobilizer Right-Treatme ONCE
Abnormal Lab Results
09/17/23
12:44
RBC 4.62 L 10^6/uL
(4.70-6.10)
MCV 95.7 H fL
(80.0-94.0)
MCH 31.4 H pg
(27.0-31.0)
MCHC 32.8 L g/dL
(33.0-37.0)
Plt Count 448 H 10^3/uL
(130-400)
Absolute Neuts (auto) 6.9 H 10^3/uL
(1.4-6.5)
Absolute Monos (auto) 1.0 H 10^3/uL
(0.1-0.6)
Lymphocytes % 14.9 L %
(20.5-51.1)
Monocytes % 9.7 H %
(1.7-9.3)
Eosinophils % 7.1 H %
(0-6)
PT 19.7 H Sec
(11.4-14.6)
Sodium 133 L mmol/L
(135-145)
BUN 30 H mg/dl
(9-20)
Creatinine 1.8 H mg/dL
(0.7-1.3)
Glucose 106 H mg/dl
(70-99)
09/17/23 12:44
09/17/23 12:44
Vital Signs
Initial and Last Documented VS:
Initial Vital Signs
Temp Pulse Resp Pulse Ox
36.4 C 79 18 94
09/17/23 12:25 09/17/23 12:25 09/17/23 12:25 09/17/23 12:25
Last Documented Vital Signs
Temp Pulse Resp BP Pulse Ox
36.4 C 75 16 109/78 99
09/17/23 12:25 09/17/23 17:25 09/17/23 17:25 09/17/23 17:25 09/17/23 17:25
MDM/Problems Addressed
Differential Diagnosis Includes:
Right knee injury: Fracture, dislocation, ligamentous injury, hemarthrosis
Syncope: Vasovagal, postural/orthostatic, dysrhythmia, aortic stenosis; nothing by history or exam to suggest emergent pathology such as acute [place], PE, ruptured AAA, subarachnoid hemorrhage and in my judgment no further workup indicated for these
diagnoses at this point
MDM/Problems Addressed:
67-year-old male with history as documented presents to the emergency room for evaluation after syncopal event, also complaining of knee pain as a result of the subsequent fall. Vital signs are normal. Physical exam as above. EKG shows sinus
rhythm. Plan to place an IV check labs including CBC and CMP, given his cardiac history we will check troponins although he denies any chest pain. Will monitor on telemetry. Will send for an x-ray of the right knee. Will apply ice pack treat
with Tylenol for pain. Reassess after the above.
Labs reviewed: CBC unremarkable, CMP shows creatinine of 1.8 which is essentially baseline. Troponin negative x 1. X-ray of the knee on my independent review shows no fracture or dislocation although there is a joint effusion. Suspect this may be
a ligamentous injury as a result twisting of the knee on the way down�his knee was caught up underneath him. Will place in a knee immobilizer and refer to orthopedics. Regarding his syncope�given somewhat higher risk patient with extensive cardiac
history I did discuss with cardiology to evaluate.
Cardiology evaluated patient likely postural symptoms, recommended ensuring good oral hydration and taking care with positional changes. Decreased dose of Coreg. Can follow-up as an outpatient. Regarding his knee injury, suspect likely
ligamentous injury, we will place him in a knee immobilizer and referred to orthopedics for outpatient follow-up. Provided crutches. Tylenol as needed for pain control and oxycodone prescribed for breakthrough pain. Patient comfortable this plan.
Stable for discharge at this point. Spoke about return precautions all questions answered.
Chronic conditions affecting care:
CHF, A-fib, CAD
*Radiology
Radiology exam reviewed: preliminary read by ED provider and radiology read reviewed
*Pulse Oximetry
Patient hypoxic: no
*EKG
Interpreted by ED Provider?: Yes
Comparison EKG: no changes
Heart Rate: 83
Rate: normal
Rhythm: sinus
[place]: normal axis
Interval: normal interval
QRS Pattern: normal QRS
Ischemia: other (Inferior infarct age undetermined)
*Critical Care Note
Total Time (30-74mins, 75-104mins- exclusive of procedures): Not Applicable
Data Reviewed
Review of Other/Old Records Reveals: Labs and Records
Source: patient, records and spouse
Patient Management
Discussion with other providers: Bisque Brusher (Discussed with cardiology)
ED Attending Note
-
Portions of this chart may have been created with voice recognition software.� Occasional wrong word or��sound alike� substitutions may have occurred due to the inherent limitations of voice recognition software.
Discharge Plan
Departure
Patient Disposition: Home (Routine Discharge)
Date of Disposition: 09/17/23
Time of Disposition: 17:56
Patient with high blood pressure during this ER visit?: No
Discharge Problem:
Syncope, Injury of knee, right
Instructions: Internal Derangement of the Knee (DC), Syncope (Fainting) (DC)
Prescriptions:
New
oxycodone 5 mg tablet
5 mg PO TID PRN (Reason: Pain) Qty: 10 0RF
No Action
furosemide 40 MG tablet
20 mg PO DAILYPRN PRN (Reason: edema, weight gain)
carvedilol 12.5 MG tablet
12.5 mg PO BID
Patient Comments:
02/13/21 - PT STATED DOSE STILL AT COREG 12.5MG BID
aspirin 81 MG tablet,delayed release (DR/EC)
81 mg PO DAILY
pantoprazole 40 MG tablet,delayed release (DR/EC)
40 mg PO DAILY
multivitamin with folic acid [Tab-A-Flakito] 1 TABLET tablet
1 tab PO DAILY
sildenafil [Viagra] 100 MG tablet
100 mg PO DAILYPRN PRN (Reason: sexually activity) Qty: 0 0RF
Rx Instructions:
Do not take for 1 week post [place]. Do not take within 24 hours of nitroglycerin.
nitroglycerin 0.4 MG tablet, sublingual
0.4 mg sublingual [id number] PRN (Reason: CHEST PAIN)
amlodipine 2.5 mg Tablet
2.5 mg PO HS
acetaminophen 500 mg Tablet
1,000 mg PO Q6H PRN (Reason: mild pain)
ezetimibe [Zetia] 10 mg Tablet
10 mg PO HS
levalbuterol tartrate 45 mcg/actuation Hfa Aerosol Inhaler
2 puff INHALATION R Q4 PRN (Reason: sob)
Xarelto 20 mg Tablet
20 mg PO QPM
Hold Instructions: Resume on 07/10/22. HOLD UNTIL FRIDAY evening ~48hrs post op
Entresto 49-51 mg Tablet
1 tab PO BID
fluticasone propion-salmeterol 45-21 mcg/actuation Hfa Aerosol Inhaler
2 puff INHALATION R BID PRN (Reason: sob)
Medical Marijuana
1 dose PO HS PRN (Reason: mild pain/sleep)
Patient Comments:
PT USES BOTH VAPE PEN AND BUD GONZALEZ, FILLS AT [facility]
amoxicillin-pot clavulanate 875-125 mg tablet
1 tab PO BID 7 Days Qty: 14 0RF
prednisone 10 mg tablet
10 mg PO DAILY Qty: 30 0RF
Rx Instructions:
4 t daily x 3 days, then
3 t daily x 3 days, then
2 t daily x 3 days, then
1 t daily x 3 days, then stop
Referrals:
Hussain Nunez CRNP [Family Provider] -
Ирина Sun MD [Active] - Call in 1-3 days for appt
Stephane Ames MD [Active] - Call in 1-3 days for appt (Orthopedist)
Activity Restrictions/Additional Instructions:
Thank you for visiting the Emergency Department at [facility].
1. Please schedule a follow up appointment as directed. Call first thing tomorrow morning to make an appointment.
2. If indicated, please take your medications as instructed and indicated on discharge paperwork.
3. If any of your symptoms do not improve, or persist, or become more severe within 6-12 hours, please return to the emergency department for further care.
4. Please return to the emergency department if you develop a headache, neck pain/stiffness, fever greater than 100.4F, chest pain, shortness of breath, persistent nausea, vomiting, slurred speech, difficulty walking, numbness/tingling, weakness,
signs of infection or any other symptoms that are worrisome to you.
Please call [phone] if you have any questions.
Interventions
Interventions:
*Risk Screen - Suicide Last Done: 09/17/23 12:25
*General Assessment Last Done: 09/17/23 12:25
*Neglect/Abuse Screening Last Done: 09/17/23 12:25
ED- Fall Risk Assessment Last Done: 09/17/23 14:40
*ED COVID-19 Vaccine History Last Done: 09/17/23 12:25
ED- Cardiac Assessment Last Done: 09/17/23 14:40
ED- Neurological Assessment Last Done: 09/17/23 14:40
Discharge Date and Time
Print Language: THAI
--- NOTE | 2023-09-17 15:44 | CON.CAR ---
Addendum entered and electronically signed by Anshu Salomon MD 09/17/23 17:27:
I saw and examined the patient.
The Receipt And Report Clerk's note was reviewed and I agree with the note.
Comment: Briefly, 67-year-old man past medical history of paroxysmal atrial fibrillation and heart failure with recovered ejection fraction who is presenting following episode of presyncope
Patient reports that he woke this morning around 3 AM to urinate and then upon returning to bed it sounds like he developed lightheadedness and dizziness
Experienced a controlled fall to his knees, possible loss of consciousness for few seconds but it is unclear based on his description
Following the episode he checked his blood pressure and tells me that it was low around 70/40 mmHg and heart rhythm based on his Kardia was atrial fibrillation
Currently in the emergency department he is feeling back to his baseline aside from significant knee pain related to the fall
It seems like he has had similar syncopal episodes over the years
Blood pressure remains low normal here
Initial ECG is sinus rhythm and he is currently regular on exam
We discussed staying well-hydrated and changing positions slowly to combat these episodes of presyncope/syncope
Explained that he should get into a seated or lying position when his prodromal symptoms come on
Would recommend decreasing Coreg to 6.25 mg twice daily for now and monitor heart rate and blood pressure going forward�he can discuss medication titration at scheduled follow-up appointment in our office
We will also reach out to him regarding possible outpatient library monitor
Overall stable from a cardiac perspective
Original Note:
Consultation
Consultation Request
Date/Time Consultation Requested: 09/17/23
Date/Time Consultation Performed: 09/17/23
Requesting Provider: Dr. Kohli in the ER
Performing Provider: Dr. Salomon
Reason for Consultation: Near syncope, fall, possible recurrent paroxysmal Afib
Medical History
-
History of Present Illness:
Patient came to [facility] today after an episode of near syncope and fall at home early this morning, cardiology is now consulted. Patient is working part-time and his job involves him being on his feet most of the day. He does not have much time to
drink water during the day. He went to bed feeling fine last night and awoke around 4 AM to urinate and when he stood up he felt fine. He ambulated to the bathroom and sat to urinate, when he stood up he again felt fine. Then he sat in a chair in
his bedroom to pet his cat and then stood up to go back to bed and felt lightheaded and near syncopal. He tried to grab onto something, but couldn't and fell to his knees and then hyperextended himself backwards. He managed to get himself up and
check his BP and says it was 70/42. He also checked his heart rhythm using [employer] device and it said he was in Afib. He went back to bed and when he awoke this morning he again was told by Taiwo that he was in Afib. He came to [facility]. ECG was SR. BP
104/75. No chest pain.
PMH:
CKD 3b
Recovered nonischemic cardiomyopathy, EF previously 20%, then 50% 09/2017, then 60-65% by echo 02/28/21
Chronic systolic/diastolic CHF
Frequent PVCs
Hypertension
Obstructive coronary disease by catheterization 2016
History of orthostasis
Alcohol use
GERD
Degenerative disc disease
Dyslipidemia
Carpal tunnel syndrome on right
Chronic back pain with history of spinal stenosis and prior back surgery
History of nephrolithiasis
Osteoarthritis degenerative disc disease
Past Medical History
Past Medical History: Other (in HPI)
Past Surgical History: Cardiac (RCA PCI 10/14/19), Cholecystectomy and Orthopedic
Social History
Tobacco: Former Smoker
Alcohol: Daily
Drug: Marijuana
Personal:
Living: With Family
Family History
Family History: CAD, Cancer and Hypertension
Allergies / Home Medications
Allergy/AdvReac Type Severity Reaction Status Date / Time
amoxicillin Allergy Nausea / Verified 06/26/23 22:38
Vomiting
anise oil Allergy Rash/SOB Verified 06/26/23 22:38
doxycycline Allergy Vomiting Verified 06/26/23 22:38
meperidine HCl [From Demerol] Allergy Nausea Verified 06/26/23 22:38
pollen extracts Allergy nasal Verified 06/26/23 22:38
congestion,
watery eyes
atorvastatin [From Lipitor] AdvReac Mild Unknown Verified 06/26/23 22:38
rosuvastatin [From Crestor] AdvReac Mild Unknown Verified 06/26/23 22:38
codeine [Codeine] AdvReac UPSET Verified 06/26/23 22:38
STOMACH
pentazocine [From Talwin] AdvReac Confusion, Verified 06/26/23 22:38
hallucinations
�Medication �Instructions �Recorded �Confirmed �Type
furosemide 40 mg tablet 20 mg PO DAILYPRN PRN edema, 10/01/17 06/26/23 History
weight gain
carvedilol 12.5 mg tablet 12.5 mg PO BID Blood pressure 02/11/19 06/26/23 History
aspirin 81 mg tablet,delayed 81 mg PO DAILY Blood clot 10/14/19 06/26/23 History
release prevention/tx
multivitamin with folic acid 400 1 tab PO DAILY Supplement 10/14/19 06/26/23 History
mcg tablet (Tab-A-Flakito)
pantoprazole 40 mg tablet,delayed 40 mg PO DAILY Gastrointestinal 10/14/19 06/26/23 History
release issue
sildenafil 100 mg tablet (Viagra) 100 mg PO DAILYPRN PRN sexually 10/15/19 06/26/23 Rx
activity ##0
nitroglycerin 0.4 mg sublingual 0.4 mg sublingual [id number] PRN 02/13/21 06/26/23 History
tablet CHEST PAIN
acetaminophen 500 mg tablet 1,000 mg PO Q6H PRN mild pain 07/03/22 06/26/23 History
amlodipine 2.5 mg tablet 2.5 mg PO HS 07/03/22 06/26/23 History
ezetimibe 10 mg tablet (Zetia) 10 mg PO HS 07/03/22 06/26/23 History
fluticasone propionate 45 2 puff inhalation R BID PRN sob 07/03/22 06/26/23 History
mcg-salmeterol 21 mcg/actuation
HFA inhaler
levalbuterol tartrate 45 2 puff inhalation R Q4 PRN sob 07/03/22 06/26/23 History
mcg/actuation aerosol inhaler
rivaroxaban 20 mg tablet (Xarelto) 20 mg PO QPM 07/03/22 06/26/23 History
sacubitril 49 mg-valsartan 51 mg 1 tab PO BID 07/03/22 06/26/23 History
tablet (Entresto)
Medical Marijuana 1 dose PO HS PRN mild pain/sleep 06/26/23 06/26/23 History
amoxicillin 875 mg-potassium 1 tab PO BID 7 days #14 tabs 06/27/23 Rx
clavulanate 125 mg tablet
prednisone 10 mg tablet 10 mg PO DAILY #30 tabs 06/27/23 Rx
oxycodone 5 mg tablet 5 mg PO TID PRN Pain #10 tabs 09/17/23 Rx
Review of Systems
-
History Source: Patient and Family ( sitting bedside)
All other systems: Negative unless noted
Physical Exam
Vital Signs
Temp Pulse Resp BP Pulse Ox
97.5 F 79 18 104/75 94
09/17/23 12:25 09/17/23 12:25 09/17/23 12:25 09/17/23 12:29 09/17/23 12:25
GEN: NAD, AAOx3
HEENT: EOMI, MMM
LUNGS: CTA B/L, no wheezes or rales
CV: Reg, S1/S2, no murmur
ABD: soft, BS+, NT, ND
EXT: Abrasions B/L knees. No clubbing, cyanosis, lesions or edema B/L
NEURO: Gross non-focal
SKIN: Warm, dry and pink. No rash
Lab Results
09/17/23 12:44
09/17/23 12:44
Troponin I 0.017 ng/ml 09/17/23 12:44
Impression / Plan
-
PCP: Nikki Subramanian [facility]
Cardiology: Dr. Ирина Sun
Impression:
Near syncope
Fall with knee pain and abrasions
GASPER on CKD 3b
Recovered nonischemic cardiomyopathy, EF previously 20%, then 50% 09/2017, then 60-65% by echo 02/28/21
Chronic systolic/diastolic CHF
Frequent PVCs
Hypertension
Obstructive coronary disease by catheterization 2016
History of orthostasis
Alcohol use
GERD
Degenerative disc disease
Dyslipidemia
Carpal tunnel syndrome on right
Chronic back pain with history of spinal stenosis and prior back surgery
History of nephrolithiasis
Osteoarthritis degenerative disc disease
Echo 10/24/17: shows EF 50% with no significant valvular disease
Echo 02/28/21: EF 60-65%, mild basal inferolateral and basal inferior hypokinesis, mild conc LVH, normal diastolic function, mild MR
Plan:
-Patient came to [facility] today after an episode of near syncope and fall at home early this morning, cardiology is now consulted. Patient is working part-time and his job involves him being on his feet most of the day. He does not have much time to
drink water during the day. He went to bed feeling fine last night and awoke around 4 AM to urinate and when he stood up he felt fine. He ambulated to the bathroom and sat to urinate, when he stood up he again felt fine. Then he sat in a chair in
his bedroom to pet his cat and then stood up to go back to bed and felt lightheaded and near syncopal. He tried to grab onto something, but couldn't and fell to his knees and then hyperextended himself backwards. He managed to get himself up and
check his BP and says it was 70/42. He also checked his heart rhythm using [employer] device and it said he was in Afib. He went back to bed and when he awoke this morning he again was told by Taiwo that he was in Afib. He came to [facility]. ECG was SR. BP
104/75. No chest pain.
-ECG reviewed by me shows SR. No acute ischemic changes.
-BP on the lower side and GASPER with Cre up to 1.8. Patient reports decreased PO intake. He is going to try and increase PO intake.
-Consider decreasing Coreg to 6.25 mg BID. Patient has a h/o recovered CM and has previously had orthostasis limiting uptitration of GDMT.
-He takes Lasix 20 mg daily PRN and reports last dose was more than a week ago.
-Talked to patient about arranging for a 2 week CAM monitor as an outpatient to look for Afib burden.
-Cont usual dose of Xarelto 20 mg daily. CrCl calculated by me is 56.
[2023-09-17] MEDS: ROXICODONE 5 MG PO (15:48)
== END 2023-09-17 18:27 | disposition home or self-care (01) ==
LOC: EMR 12:22
PROVIDERS: Emergency Medicine; CONSULT PHYSICIAN Internal Medicine Cardiovascular Disease; EMERGENCY PHYSICIAN Emergency Medicine; FAMILY PHYSICIAN Nurse Practitioner Family
DX: R55 Syncope and collapse (principal); S89.91XA Unspecified injury of right lower leg, initial encounter; W19.XXXA Unspecified fall, initial encounter; I13.0 Hypertensive heart and chronic kidney disease with heart failure and stage 1 through stage 4 chronic kidney disease, or unspecified chronic kidney disease; I50.9 Heart failure, unspecified; I25.10 Atherosclerotic heart disease of native coronary artery without angina pectoris; N18.32 Chronic kidney disease, stage 3b; I48.91 Unspecified atrial fibrillation; Z87.891 Personal history of nicotine dependence
CPT/HCPCS: 99285; 29505; 73564; 80048; 84484; 85025; 85610; 93005

== ENCOUNTER 2023-09-20 16:28 | Emergency (ER) | payer MEDICARE, SELFPAY ==
[2023-09-20] VITALS (10 sets, daily range): BP systolic 117–141; BP diastolic 67–100; PULSE 73–94; BMI 27.8
--- NOTE | 2023-09-20 17:32 | ED.GENMED ---
History of Present Illness
General
Chief Complaint: Urinary Symptoms
Source: patient and spouse
Exam Limitations: none
Time Seen by Provider: 09/20/23 16:56
Travel History
Have you had any contact with someone who has COVID-19?: No
Do you have any symptoms of coronavirus? Fever > 100 degrees, chills, cough, shortness of breath, sore throat, loss of taste or smell, muscle aches, or headache?: No
History of Present Illness
History of Present Illness:
67-year male CAD status post stenting congestive heart failure PAF on Xarelto week or 2 ago developed redness swelling of his left lower extremity started on Keflex he was apparently taking it twice a day instead of 4 times a day as prescribed leg
swelling improved, he subsequently developed some fatigue, had a syncopal event while going to the restroom few nights ago struck his knee does not believe he struck his head seen in the ER had blood work and x-rays subsequently developed dysuria
frequency and chills, general malaise head fogginess, no documented fevers, has had a kidney stone previously requiring intervention
Past History
Past History
ED Past Medical History: Asthma, CAD, CHF, COPD, GERD, HTN, Hypercholesterolemia and Other (Kidney stones, Gastritis, Esophagitis,)
ED Past Surgical History: Cholecystectomy and Orthopedic
Social History
Tobacco: Non-smoker
Alcohol: Daily (Captin Rito 6-8 oz)
Drug: None
Personal:
Living: with family
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
Family History
Family History: Other; Negative Sudden
Review of Systems
Review of Systems
All Other Systems: Not applicable
Constitutional: Reports fatigue and chills; Denies fever
EENT: Reports no symptoms
Respiratory: Reports no symptoms
Cardiac: Reports no symptoms
ABD/GI: Denies abdominal pain or nausea
: Reports dysuria and frequency; Denies flank pain
Musculoskeletal: Reports joint pain, joint swelling and edema
Neurological: Reports dizzy and weakness; Denies headache
Endocrine: Reports no symptoms
Psychiatric: Reports no symptoms
Phy Exam
Physical Exam
Physical Exam:
Physical Exam
General: 67 male nontoxic no overt signs of head or neck trauma
Neck: No tongue bite no posterior neck pain
Heart: Regular
Lungs: no acute respiratory distress. clear bilaterally
Abdomen: Soft nontender no CVA tenderness
Neuro: alert and oriented. no focal neurological deficits
Skin: no rash
Psychiatric: well kept. interactive and cooperative
Extremities: Abrasions of bilateral knees effusion of the right knee no calf pain
Course
Orders/Labs/Results
Orders:
Orders
09/20/23 17:19
Urine Culture Urgent
TRACIE Source: Urine
Specimen Description:
Obtained by: [facility]
Date Specimen was Collected: 09/20/23
Time Specimen was Collected: 17:17
09/20/23 17:26
IV Insert/Care/Rem.- Treatment PRN
Acetaminophen [Tylenol] 1,000 mg PO NOW STA
09/20/23 17:28
CT Abd/pel Without Iv Or Oral Urgent
Comment:
Reason For Exam: uti, chills
CT Cervical Spine W/o Iv Contr Urgent
Comment:
Reason For Exam: fall xarelto
CT Head W/o Iv Contrast Urgent
Comment:
Reason For Exam: fall xarelto
Cardiac Monitoring- Treatment ONCE
09/20/23 17:31
Complete Blood Count/With Diff Urgent
Comprehensive Metabolic Panel Urgent
Lactic Acid Q4H
Comment: CANCEL 2nd LACTIC ACID IF 1st LACTIC ACID IS LESS THAN 2
Urinalysis Urgent
Date Specimen was Collected: 09/20/23
Time Specimen was Collected: 17:18
Blood Culture Q30M
TRACIE Source: Blood/Venous
Specimen Description:
Blood Culture Q30M
TRACIE Source: Blood/Venous
Specimen Description:
Influenza A+B Rapid Molecular Urgent
TRACIE Source: Nasal Swab
Specimen Description:
09/20/23 19:18
Orthostatic VS- Treatment ONCE
0.9% Sodium Chloride 250 ml [Nss] 250 ml IV BOLUS
CefTRIAXone [Rocephin] 1,000 mg IV NOW STA
09/20/23 19:38
Sterile Water [Sterile Water For Injection] 10 ml .ROUTE .STK-MED ONE
09/20/23 20:05
Phenazopyridine HCl [Pyridium] 200 mg PO NOW STA
Tamsulosin [Flomax] 0.4 mg PO NOW STA
Abnormal Lab Results
09/20/23
17:31
RBC 4.39 L 10^6/uL
(4.70-6.10)
MCH 31.9 H pg
(27.0-31.0)
Absolute Lymphs (auto) 0.8 L 10^3/uL
(1.2-3.4)
Lymphocytes % 12.8 L %
(20.5-51.1)
Monocytes % 9.9 H %
(1.7-9.3)
Eosinophils % 7.0 H %
(0-6)
Creatinine 1.5 H mg/dL
(0.7-1.3)
Glucose 141 H mg/dl
(70-99)
Total Protein 6.1 L g/dl
(6.3-8.2)
Urine Ketones Trace A
(Negative)
09/20/23 17:31
09/20/23 17:31
Vital Signs
Initial and Last Documented VS:
Initial Vital Signs
Temp Pulse Resp BP Pulse Ox
98.9 F 85 20 128/83 98
09/20/23 16:33 09/20/23 16:33 09/20/23 16:33 09/20/23 16:33 09/20/23 16:33
Last Documented Vital Signs
Temp Pulse Resp BP Pulse Ox
98.9 F 76 17 118/89 97
09/20/23 16:33 09/20/23 19:00 09/20/23 19:00 09/20/23 19:00 09/20/23 19:04
MDM/Problems Addressed
Differential Diagnosis Includes:
UTI sepsis bacteremia occult head trauma electrolyte abnormality orthostasis dehydration
MDM/Problems Addressed:
Fatigue urinary frequency
Chronic conditions affecting care: HTN, CAD, Cardiomyopathy and Arrhythmia
Acute Exacerbation and/or Progression of Chronic Illness: HTN, CAD, Cardiomyopathy and Arrhythmia
*Radiology
Radiology exam reviewed: radiology read reviewed
*Pulse Oximetry
Patient hypoxic: no
*Welt Insole Channeler Interpretation
Rate: normal
Interpretation: normal
Heart Rate: 78
Rhythm: sinus
*Critical Care Note
Total Time (30-74mins, 75-104mins- exclusive of procedures): Not Applicable
Data Reviewed
Review of Other/Old Records Reveals: Labs and Records
Source: patient and spouse
Update Note
Update Note:
6:25 PM labs are noted creatinine at baseline had higher levels previously
Urinalysis noted, CTs are pending
[address] noted, unclear if this possibly could be partially treated UTI? has been on Keflex allergies are noted looks like amoxicillin is not a true allergy tolerated cephalosporins and Augmentin, will give him some fluids Rocephin see how he
does hold on NSAIDs due to chronic renal sufficiency
8 PM, patient with some dysuria with urinating will try Flomax and Pyridium
9pm pt feeling better
ED Attending Note
-
Portions of this chart may have been created with voice recognition software.� Occasional wrong word or��sound alike� substitutions may have occurred due to the inherent limitations of voice recognition software.
Discharge Plan
Departure
Patient Disposition: Home (Routine Discharge)
Date of Disposition: 09/20/23
Time of Disposition: 21:01
Patient with high blood pressure during this ER visit?: No
Condition: Good
Discharge Problem:
Dysuria
Instructions: Urinary Tract Infection, Adult (DC)
Prescriptions:
New
phenazopyridine [Pyridium] 200 mg tablet
200 mg PO TID PRN (Reason: Pain) Qty: 6 0RF
tamsulosin [Flomax] 0.4 mg capsule
0.4 mg PO HS Qty: 10 0RF
amoxicillin-pot clavulanate 875-125 mg tablet
1 tab PO Q12H Qty: 14 0RF
No Action
furosemide 40 MG tablet
20 mg PO DAILYPRN PRN (Reason: edema, weight gain)
carvedilol 12.5 MG tablet
12.5 mg PO BID
aspirin 81 MG tablet,delayed release (DR/EC)
81 mg PO DAILY
pantoprazole 40 MG tablet,delayed release (DR/EC)
40 mg PO DAILY
multivitamin with folic acid [Tab-A-Flakito] 1 TABLET tablet
1 tab PO DAILY
sildenafil [Viagra] 100 MG tablet
100 mg PO DAILYPRN PRN (Reason: sexually activity) Qty: 0 0RF
Rx Instructions:
Do not take for 1 week post [place]. Do not take within 24 hours of nitroglycerin.
nitroglycerin 0.4 MG tablet, sublingual
0.4 mg sublingual [id number] PRN (Reason: CHEST PAIN)
amlodipine 2.5 mg Tablet
2.5 mg PO HS
acetaminophen 500 mg Tablet
1,000 mg PO Q6HPRN PRN (Reason: mild pain)
ezetimibe [Zetia] 10 mg Tablet
10 mg PO HS
levalbuterol tartrate 45 mcg/actuation Hfa Aerosol Inhaler
2 puff INHALATION R Q4HPRN PRN (Reason: sob)
Xarelto 20 mg Tablet
20 mg PO QPM
Hold Instructions: Resume on 07/10/22. HOLD UNTIL FRIDAY evening ~48hrs post op
Entresto 49-51 mg Tablet
1 tab PO BID
fluticasone propion-salmeterol 45-21 mcg/actuation Hfa Aerosol Inhaler
2 puff INHALATION R BID PRN (Reason: sob)
Medical Marijuana
1 dose PO HS PRN (Reason: mild pain/sleep)
Patient Comments:
PT USES BOTH VAPE PEN AND BUD GONZALEZ, FILLS AT [facility]
cephalexin 500 mg Capsule
500 mg PO QID
oxycodone 5 mg tablet
5 mg PO TIDPRN PRN (Reason: severe pain)
Referrals:
Hussain Nunez CRNP [Family Provider] -
Interventions
Interventions:
ED- Fall Risk Assessment Last Done: 09/20/23 19:04
*ED COVID-19 Vaccine History Last Done: 09/20/23 16:33
ED-Male Genitourinary Assessment Last Done: 09/20/23 17:40
Discharge Date and Time
Print Language: ESTONIAN
[2023-09-20 17:41] LABS: % Basophils 0.6 % (0-2); % Immature Granulocytes 0.5 % (0-0.5); % Lymphocytes 12.8 % (20.5-51.1); % Monocytes 9.9 % (1.7-9.3); % Neutrophils 69.2 % (42.2-75.2); Absolute Eosinophils 0.4 10^3/uL (0-0.7); Absolute Lymphocytes 0.8 10^3/uL (1.2-3.4); Absolute Monocytes 0.6 10^3/uL (0.1-0.6); Absolute Neutrophils 4.3 10^3/uL (1.4-6.5); Hematocrit 41.1 % (39.0-52.0); Mean Corp Hgb Conc. 34.1 g/dL (33.0-37.0); Mean Corpuscular Hgb 31.9 pg (27.0-31.0); Mean Corpuscular Volume 93.6 fL (80.0-94.0); Mean Platelet Volume 9.5 fL (7.4-10.4); Nucleated Red Blood Cells % 0 % (-); Platelet Count 297 10^3/uL (130-400); Red Blood Cell Count 4.39 10^6/uL (4.70-6.10); Red Cell Dist. Width 13.1 % (11.5-14.5); White Blood Cell Count 6.3 10^3/uL (4.8-10.8)
[2023-09-20 17:54] LABS: ALT (SGPT) 21 U/L (0-50); AST (SGOT) 44 U/L (17-59); Albumin 3.6 g/dl (3.5-5.0); Alkaline Phosphatase 63 U/L (38-126); Blood Urea Nitrogen 20 mg/dl (9-20); Calcium 9.1 mg/dl (8.4-10.2); Carbon Dioxide 22 mmol/L (22-30); Chloride 103 mmol/L (98-107); Estimated Creatinine Clearance 53 ml/min; Glucose 141 mg/dl (70-99); Potassium 4.3 mmol/L (3.5-5.1); Sodium 135 mmol/L (135-145); Total Bilirubin 0.5 mg/dl (0.2-1.3); Total Protein 6.1 g/dl (6.3-8.2); eGFR 51.03
[2023-09-20 17:57] LABS: Lactic Acid 1.2 mmol/L (0.7-2.0)
[2023-09-20 18:16] LABS: Urine Albumin Trace (Neg - Trace); Urine Bilirubin Negative (Negative); Urine Character Clear (Clear); Urine Color Yellow; Urine Glucose Negative (Negative); Urine Ketone Trace (Negative); Urine Leukocyte Negative (Negative); Urine Nitrite Negative (Negative); Urine Occult Blood Negative (Negative); Urine Urobilinogen Negative (Neg - 1+); Urine pH 6.5 (5.0-9.0)
[2023-09-20] MEDS: ROCEPHIN 1000 MG IV (19:48)
[2023-09-20] MEDS: NSS 250 IV (19:58)
[2023-09-20] MEDS: FLOMAX 0.400000000000000022 MG PO (20:45)
[2023-09-20] MEDS: Pyridium 200 MG PO (20:45)
== END 2023-09-20 21:38 | disposition home or self-care (01) ==
LOC: EMR 16:28
PROVIDERS: EMERGENCY PHYSICIAN Emergency Medicine; FAMILY PHYSICIAN Nurse Practitioner Family
DX: R30.0 Dysuria (principal); R55 Syncope and collapse; S80.212A Abrasion, left knee, initial encounter; S80.211A Abrasion, right knee, initial encounter; X58.XXXA Exposure to other specified factors, initial encounter; M25.461 Effusion, right knee; R42 Dizziness and giddiness; R53.1 Weakness; R53.83 Other fatigue; R68.83 Chills (without fever); I25.10 Atherosclerotic heart disease of native coronary artery without angina pectoris; I48.0 Paroxysmal atrial fibrillation; I11.0 Hypertensive heart disease with heart failure; I50.9 Heart failure, unspecified; I42.9 Cardiomyopathy, unspecified; E78.00 Pure hypercholesterolemia, unspecified; J44.9 Chronic obstructive pulmonary disease, unspecified; K21.9 Gastro-esophageal reflux disease without esophagitis; J45.909 Unspecified asthma, uncomplicated; Z90.49 Acquired absence of other specified parts of digestive tract; Z95.5 Presence of coronary angioplasty implant and graft; Z87.442 Personal history of urinary calculi; Z87.19 Personal history of other diseases of the digestive system; Z79.01 Long term (current) use of anticoagulants; Z79.82 Long term (current) use of aspirin; Z88.1 Allergy status to other antibiotic agents; Z88.5 Allergy status to narcotic agent; Z88.8 Allergy status to other drugs, medicaments and biological substances; Z91.018 Allergy to other foods; Z91.048 Other nonmedicinal substance allergy status
CPT/HCPCS: 99284; 96374; 96361; 70450; 72125; 74176; 80053; 81003; 83605; 85025; 87040; 87086; 87502

== ENCOUNTER → 2023-10-09 12:47 | Outpatient (REF) | payer MEDICARE, SELFPAY | LOC: RCS 12:47 | PROVIDERS: ATTENDING PHYSICIAN Internal Medicine Cardiovascular Disease; FAMILY PHYSICIAN Nurse Practitioner Family | DX: I42.9 Cardiomyopathy, unspecified (principal); I25.10 Atherosclerotic heart disease of native coronary artery without angina pectoris; I10 Essential (primary) hypertension | CPT/HCPCS: 93306 ==

== ENCOUNTER 2023-12-10 23:28 | Inpatient (IN) | payer MEDICARE, SELFPAY ==
[2023-12-10] VITALS (27 sets, daily range): BP systolic 51–121; BP diastolic 31–91; BMI 27.8
--- NOTE | 2023-12-10 20:43 | ED.GENMED ---
History of Present Illness
General
Chief Complaint: Chest Pain
Time Seen by Provider: 12/10/23 20:35
History of Present Illness
History of Present Illness:
68-year-old male with history of A-fib on Xarelto and carvedilol, hyperlipidemia, CAD status post stenting presenting to the emergency department for chest pain. Patient reports symptoms started an hour prior to arrival. He was at work, denies
exertional onset. Pain is left-sided. He was concerned for heart attack, which he had in the past. However he also checked his heart rate, noted that it was elevated, and was concerned that he was in A-fib. Reports that he does not typically
have chest pain with his A-fib. He took a nitro and reports mild relief of the chest pain, however chest pain returned. Reports some dyspnea. Denies abdominal pain or GI symptoms. Reports compliance with his medications, particularly his
Xarelto. Denies any fever, however does report that he has been feeling generally weak and fatigued, took a home COVID test that was negative. Denies additional acute medical complaints.
Past History
Past History
ED Past Medical History: Asthma, CAD, CHF, COPD, GERD, HTN, Hypercholesterolemia and Other (Kidney stones, Gastritis, Esophagitis,)
ED Past Surgical History: Cholecystectomy and Orthopedic
Social History
Tobacco: Non-smoker
Alcohol: Daily ([place]ito 6-8 oz)
Drug: None
Personal:
Living: with family
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
Family History
Family History: Other; Negative Sudden
Phy Exam
Physical Exam
Physical Exam:
General: Well-appearing, no clinical signs of dehydration, nontoxic and in no acute distress
HEENT: protecting airway
Neck: appears supple
CV: Tachycardic, irregularly irregular rhythm
Resp: No accessory muscle use, no increased work of breathing, lungs clear to auscultation bilaterally
Abd: Soft and non-distended, no tenderness to palpation
Extremities: No deformities, no swelling, no erythema, pulses and sensation intact
Neuro: alert, no focal neurologic deficit
: deferred
Rectal: deferred
Psych: Normal affect
Skin: Intact
Scores
Heart Score for Chest Pain Patients
STEMI patient?: No
History: Slightly or Non-Suspicious
ECG: Nonspecific Repolarization
Age: >/= 65 years
Risk Factors: >/= 3 Risk Factors or History of CAD
Troponin: </= Normal Limit
Heart Score for Chest Pain Patients: 5
Heart Score Risk: 20.3% MACE over next 6 weeks
Course
Orders/Labs/Results
Orders:
Orders
12/10/23 20:20
EKG [Electrocardiogram (*1)] Urgent
Reason for Study: Chest Pain
EKG- Treatment ONCE
12/10/23 20:36
0.9% Sodium Chloride 1000 ml [Nss] 1,000 ml IV BOLUS
Diltiazem HCl [Cardizem] 20 mg IV NOW STA
12/10/23 20:37
CR Chest Portable - 1 View Urgent
Comment:
Reason For Exam: chest pain
Reason Study Needs to be Portable: Patient Unstable
12/10/23 20:47
COVID-19 Antigen Urgent
Source: Nasal Swab
Complete Blood Count/With Diff Urgent
Comprehensive Metabolic Panel Urgent
NT-proBNP Urgent
PTT Urgent
Prothrombin Time Urgent
Troponin I Q3H
12/10/23 21:32
Propofol [Diprivan] 20 ml .ROUTE .STK-MED
12/10/23 21:45
Electrocardiogram (*1) Urgent
Reason for Study: Atrial Fibrillation
EKG- Treatment ONCE
12/10/23 22:00
Diltiazem 125 mg/125 ml Nss [Cardizem] 125 mg in 125 ml IV PER PROTOCOL
Currently infusing. Continue current dose and titrate:: Yes
Titrate to keep:: Heart rate 80-100 bpm
Titrate by mg/hr:: 5 mg/hr
Frequency of titrations (minutes):: 15
Maximum dose in mg/hr:: 15
12/10/23 22:20
Electrocardiogram (*1) Urgent
Reason for Study: Atrial Fibrillation
EKG- Treatment ONCE
12/10/23 22:34
Metoprolol [Lopressor] 25 mg PO NOW STA
12/10/23 22:55
Fentanyl Citrate/Pf [Sublimaze] 25 mcg IV NOW STA
12/10/23 23:19
Admit/Transfer Patient As Directed
Co-Sign Provider:
Level of Care: Inpatient admission
Assign to:: IVU
Physician / Group: alyssa
Diagnosis: afib with rvr
Reason for Hospitalization: afib with rvr
Expected length of stay greater than two midnights?: Yes
ELOS- Estimated Length of Stay in days: 2
I certify the patient meets the requirements for IP care: Yes
Code Status As Directed
Resuscitation Status: Full Code
PRN Pain Medication Management As Directed
May give lesser potent ordered pain med per pt: Yes
preference::
Protocol:: Medication orders for pain may be administered in a
manner that supports deferring to patient preference
when the pt is:
- Requesting an ordered lesser potent pain medication.
Least to most potent pain medications are defined
as: acetaminophen < NSAID < tramadol < opioids
(morphine, oxycodone, hydromorphone).
- Requesting a lesser dose of the same medication IF
ORDERED.
- Requesting a less intrusive route of administration
if both routes are prescribed by the provider (PO <
IV).
12/10/23 23:53
Troponin I Q3H
12/11/23 00:09
0.9% Sodium Chloride 1000 ml [Nss] 1,000 ml IV 100 mls/hr
0.9% Sodium Chloride [Nss (Preservative Free)] See Protocol IV PRN PRN
Acetaminophen [Tylenol] 650 mg PO Q4HPRN PRN
FOLic ACID [Folvite] 1 mg 0.9% Sodium Chloride 50 ml [Nss] 50 ml IV DAILYPRN
Lorazepam [Ativan] 1 mg IV Q1HPRN PRN
Lorazepam [Ativan] 1 mg PO Q2HPRN PRN
Lorazepam [Ativan] 2 mg IV Q1HPRN PRN
Metoprolol [Lopressor] 5 mg IV Q6HPRN PRN
12/11/23 00:09
Case Management Consult Once
Case Management Consult: Other
Comment: Substance abuse counseling
DIETARY CONSULT Routine
Reason for Consult: Nutrition support, possible refeeding guidelines
VTE Contraindication Routine
VTE Mechanical Device Contraindication: Medical Contraindication
Pharmocologic Contraindication: Medical Contraindication
Activity As Directed
Activity Level: As Tolerated
MSAS SCORE As Directed
MSAS Score 0-4: Repeat MSAS every 2 hours until 0-4 for three consecutive assessments, then every 4 hours x 48
hours.
MSAS Score 5-7: For MILD withdrawl symptoms. Repeat MSAS and RASS every 2 hours
MSAS Score 8-11: For MODERATE withdrawal symptoms. Repeat MSAS and RASS every 1 hour. Consider ICU or IMU
level of care.
MSAS Score > 11: For SEVERE withdrawal symptoms. Repeat MSAS and RASS every 1 hour. Notify provider, consider
ICU level of care.
MSAS Additional Instructions: If no improvement or no decrease in score from severe to moderate within 12
hours, consult psychiatry
MSAS Notify Provider: Notify provider if patient requires more than 10 mg of Lorazepam in eight hour period.
Vital Signs As Directed
Frequency: Per unit guidelines
12/11/23 06:00
Complete Blood Count/With Diff IN AM
Comprehensive Metabolic Panel IN AM
12/11/23 08:00
FOLic ACID [Folvite] 1 mg PO DAILY
Thiamine HCl [Vitamin B1] 100 mg PO DAILY
12/11/23 Dinner
Cholesterol Lowering
At Your Request: Full Participation
Cholesterol Lowering: Sodium, 2 Gram
Abnormal Lab Results
12/10/23
20:47
WBC 11.4 H 10^3/uL
(4.8-10.8)
Plt Count 467 H 10^3/uL
(130-400)
Absolute Neuts (auto) 6.8 H 10^3/uL
(1.4-6.5)
Absolute Monos (auto) 1.0 H 10^3/uL
(0.1-0.6)
Absolute Eos (auto) 1.1 H 10^3/uL
(0-0.7)
Eosinophils % 9.3 H %
(0-6)
PT 16.7 H Sec
(11.4-14.6)
APTT 39.1 H Sec
(23.4-35.0)
BUN 30 H mg/dl
(9-20)
Creatinine 1.9 H mg/dL
(0.7-1.3)
Glucose 133 H mg/dl
(70-99)
Calcium 10.3 H mg/dl
(8.4-10.2)
12/10/23 20:47
12/10/23 20:47
Vital Signs
Initial and Last Documented VS:
Initial Vital Signs
Pulse Resp BP Pulse Ox
160 20 98/60 99
12/10/23 20:27 12/10/23 20:27 12/10/23 20:27 12/10/23 20:27
Last Documented Vital Signs
Temp Pulse Resp BP Pulse Ox
98.4 F 94 18 106/73 99
12/11/23 01:00 12/11/23 01:00 12/11/23 01:00 12/11/23 00:53 12/11/23 01:00
Procedures
Cardioversion
Indication:: Afib
Performed by:: Mckenna Clark DO
Synchronized?: Yes
Energy Used: 200 joules
Number of attempts: 4 total, 2 at 200, 2 at 360
Successful?: No
Complications: no complications
ASA Risk Score: Class III
Any reaction or bad outcome to prior sedation/anesthesia?: No history of a reaction
Sedation level to be attained: moderate
Chart and allergies reviewed: Yes
Patient reassessed prior to sedation: Yes
Time out completed at (validating right patient & procedure): 21:38
History of difficult intubation: No
Airway free of obstruction: No
Patient has a gag reflex: Yes
Patient is able to open mouth: Yes
Patient has no dentures: Yes
Patient has no loose teeth: Yes
Medication administered by Provider during Moderate Sedation: IV Propofol (mg)
Total dose administered: 200
Time drug administered: 21:40
Start Time: 21:40
Stop Time: 22:25
MDM/Problems Addressed
MDM/Problems Addressed:
68-year-old male with history of A-fib on Xarelto and CAD status post stenting presenting for left-sided chest pain, onset an hour prior to arrival with palpitations and elevated heart rate vital signs on arrival are significant for tachycardia and
mild hypotension.
On exam, patient is in no acute distress, however is in A-fib with RVR. Suspect etiology of symptoms, however patient notes that he does not typically have chest pain with his A-fib. Patient is at high risk for ischemia given prior history of
cardiac event. Will obtain laboratory analysis including troponin. Will obtain chest x-ray imaging. Will administer diltiazem and reassess for improvement. Will proceed with cardioversion if necessary.
21:55 -initial dose of Cardizem unsuccessful. In discussion with patient's title agent, decision made to proceed with cardioversion. Patient consented. Patient cardioverted x 2, unsuccessful, remains in A-fib with RVR.
22:30 -in discussion with cardiology, advised repeating procedure at 360 J. Attempted x 2 with no success. Per cardiology, recommending oral metoprolol. Again, plan for admission for continued monitoring and management of A-fib with RVR.
*EKG
Interpreted by ED Provider?: Yes
EKG Intrepretation Date: 12/10/23
EKG Intrepretation Time: 20:47
Interpretation: abnormal
Comparison EKG: changes noted (previously sinus 09/17/23)
Heart Rate: 154
Rate: tachycardiac
Rhythm: a-fib
Christmas: normal axis
QRS Pattern: normal QRS
Ischemia: no ischemia
*Critical Care Note
Total Time (30-74mins, 75-104mins- exclusive of procedures): 64
comment:
The high probability of a clinically significant, sudden or life threatening deterioration of the cardiovascular, A-fib with RVR system(s) required my full and direct attention, intervention and personal management. The aggregate critical care time
was 64 minutes. This time is in addition to time spent performing reported procedures but includes the following:
[x] Data Review and interpretation
[x] Patient assessment and monitoring of vital signs
[x] Documentation
[x] Medication orders and management
ED Attending Note
-
Portions of this chart may have been created with voice recognition software.� Occasional wrong word or��sound alike� substitutions may have occurred due to the inherent limitations of voice recognition software.
Discharge Plan
Departure
Patient Disposition: Admit
Date of Disposition: 12/10/23
Time of Disposition: 22:45
Presentation/result/management discussed w/ accepting MD/DO: Hospitalist
Patient with high blood pressure during this ER visit?: No
Condition: Fair
Discharge Problem:
Atrial fibrillation with rapid ventricular response, Chest pain
Interventions
Interventions:
*Risk Screen - Suicide Last Done: 12/10/23 20:56
*General Assessment Last Done: 12/11/23 00:29
*Neglect/Abuse Screening Last Done: 12/10/23 20:56
ED- Fall Risk Assessment Last Done: 12/10/23 20:56
*ED COVID-19 Vaccine History Last Done: 12/10/23 20:56
*Nursing Disposition Last Done: 12/11/23 00:29
ED- Cardiac Assessment Last Done: 12/10/23 20:56
Discharge Date and Time
Discharge Date/Time: 12/11/23 00:10
[2023-12-10] MEDS: NSS 1000 IV (20:50)
[2023-12-10] MEDS: CARDIZEM 20 MG IV (20:53)
[2023-12-10 20:56] LABS: % Basophils 0.8 % (0-2); % Eosinophils 9.3 % (0-6); % Immature Granulocytes 0.4 % (0-0.5); % Lymphocytes 20.8 % (20.5-51.1); % Monocytes 9.1 % (1.7-9.3); % Neutrophils 59.6 % (42.2-75.2); Absolute Basophils 0.1 10^3/uL (0-0.2); Absolute Eosinophils 1.1 10^3/uL (0-0.7); Absolute Lymphocytes 2.4 10^3/uL (1.2-3.4); Absolute Neutrophils 6.8 10^3/uL (1.4-6.5); Hematocrit 45.8 % (39.0-52.0); Hemoglobin 15.2 g/dL (13.0-18.0); Mean Corp Hgb Conc. 33.2 g/dL (33.0-37.0); Mean Corpuscular Hgb 29.9 pg (27.0-31.0); Mean Corpuscular Volume 90.2 fL (80.0-94.0); Mean Platelet Volume 9.4 fL (7.4-10.4); Nucleated Red Blood Cells % 0 % (-); Platelet Count 467 10^3/uL (130-400); Red Blood Cell Count 5.08 10^6/uL (4.70-6.10); Red Cell Dist. Width 13.9 % (11.5-14.5); White Blood Cell Count 11.4 10^3/uL (4.8-10.8)
[2023-12-10 21:07] LABS: COVID-19 Antigen Negative (Negative)
[2023-12-10 21:08] LABS: INR 1.35; PT 16.7 Sec (11.4-14.6)
[2023-12-10 21:09] LABS: APTT 39.1 Sec (23.4-35.0)
[2023-12-10 21:10] LABS: ALT (SGPT) 15 U/L (0-50); AST (SGOT) 26 U/L (17-59); Albumin 4.6 g/dl (3.5-5.0); Alkaline Phosphatase 75 U/L (38-126); Blood Urea Nitrogen 30 mg/dl (9-20); Calcium 10.3 mg/dl (8.4-10.2); Carbon Dioxide 24 mmol/L (22-30); Chloride 102 mmol/L (98-107); Estimated Creatinine Clearance 41 ml/min; Glucose 133 mg/dl (70-99); Potassium 5.1 mmol/L (3.5-5.1); Sodium 135 mmol/L (135-145); Total Bilirubin 0.8 mg/dl (0.2-1.3); Total Protein 6.9 g/dl (6.3-8.2); eGFR 38.19
[2023-12-10 21:21] LABS: NT-proBNP 85.4 pg/ml; Troponin I < 0.012 ng/ml
[2023-12-10] MEDS: LOPRESSOR 25 MG PO (22:51)
[2023-12-10] MEDS: SUBLIMAZE 25 MCG IV (23:06)
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
[2023-12-11] VITALS: BP 104/85
[2023-12-11 00:13] VITALS: BMI 28.6
[2023-12-11 00:48] LABS: Troponin I 0.016 ng/ml
[2023-12-11 00:53] VITALS: BP 106/73
[2023-12-11 01:04] VITALS: BMI 28.6
[2023-12-11] MEDS: TYLENOL 1000 MG PO (01:14)
[2023-12-11] MEDS: NSS 1000 IV (01:15)
--- NOTE | 2023-12-11 02:08 | PTCARENOTE ---
Received patient from ED via stretcher into room 9164. Pt ambulated w/ standby assist and denies any dizziness. Tele monitor applied, pt Afib w/ HR in the 80-90s at rest. HR in the 120's w/ ambulation. Patient reports SOB w/ exertion, and
'tightness'. Pulse ox 96-99% RA. Pt received PRN breathing tx--see MAR for further details. Lungs decreased in bases. Pt c/o external chest 'burning' sensation in regards to defib pads used w/ cardioversions. No open wounds noted at this time. PRN
Tylenol administered in regards to patients pain scale. Pts medication list completed. MSAS score a 1 d/t elevated HR. Patient aware of POC, and oriented to room. Call cancino within reach.
[2023-12-11 04:08] VITALS: BP 103/86
[2023-12-11 04:19] VITALS: BMI 28.6
--- NOTE | 2023-12-11 04:29 | PTCARENOTE ---
Pt spontaneously converted to SR w/ HR in the 60's at approx 03:37. [facility] made aware, and orders obtained for EKG. EKG confirms NSR. Pt made aware. POC ongoing.
[2023-12-11 05:04] LABS: % Basophils 0.5 % (0-2); % Eosinophils 9.9 % (0-6); % Immature Granulocytes 0.4 % (0-0.5); % Lymphocytes 17.9 % (20.5-51.1); % Monocytes 10.3 % (1.7-9.3); Absolute Basophils 0.1 10^3/uL (0-0.2); Absolute Lymphocytes 1.8 10^3/uL (1.2-3.4); Absolute Monocytes 1.1 10^3/uL (0.1-0.6); Absolute Neutrophils 6.2 10^3/uL (1.4-6.5); Hematocrit 41.7 % (39.0-52.0); Hemoglobin 13.9 g/dL (13.0-18.0); Mean Corp Hgb Conc. 33.3 g/dL (33.0-37.0); Mean Corpuscular Hgb 29.9 pg (27.0-31.0); Mean Corpuscular Volume 89.7 fL (80.0-94.0); Mean Platelet Volume 9.3 fL (7.4-10.4); Nucleated Red Blood Cells % 0 % (-); Platelet Count 372 10^3/uL (130-400); Red Blood Cell Count 4.65 10^6/uL (4.70-6.10); Red Cell Dist. Width 14.1 % (11.5-14.5); White Blood Cell Count 10.2 10^3/uL (4.8-10.8)
[2023-12-11 05:05] LABS: ALT (SGPT) 11 U/L (0-50); AST (SGOT) 21 U/L (17-59); Albumin 3.3 g/dl (3.5-5.0); Alkaline Phosphatase 51 U/L (38-126); Blood Urea Nitrogen 30 mg/dl (9-20); Calcium 8.8 mg/dl (8.4-10.2); Carbon Dioxide 21 mmol/L (22-30); Chloride 109 mmol/L (98-107); Estimated Creatinine Clearance 46 ml/min; Glucose 98 mg/dl (70-99); Potassium 4.4 mmol/L (3.5-5.1); Sodium 135 mmol/L (135-145); Total Bilirubin 0.6 mg/dl (0.2-1.3); Total Protein 5.5 g/dl (6.3-8.2); eGFR 43.64
[2023-12-11 07:15] VITALS: BP 109/78
--- NOTE | 2023-12-11 07:28 | CON.CAR ---
Addendum entered and electronically signed by Oscar Arias MD 12/11/23 15:54:
I saw and examined the patient.
The Game Designer/Creative Director's note was reviewed and I agree with the note.
Comment:
GEN: No distress, awake, Ox3
HEENT: supple, anicteric, mmm
LUNGS: CTA, no wheezes/rales
CV: Reg, S1/S2, 1/6 syst LSB, no gallop
ABD: soft, BS+, NT/ND
EXT: No edema
NEURO: Gross non-focal
SKIN: No rash
Plan:
68-year-old male with past medical history of paroxysmal atrial fibrillation, recovered cardiomyopathy, coronary artery status post RCA stent September 2019 with chronic heart failure with preserved ejection fraction. He presented yesterday at work with
chest discomfort. He took sublingual triglycerides and symptoms improved. And started feeling lightheaded and noticed some palpitations. He presented to [facility] with atrial fibrillation with rapid ventricular rates. He was given
Cardizem x 2 and attempted a cardioversion x 2 with no success. Ultimately he was admitted and this morning spontaneously converted back to sinus rhythm. He feels much better now that he is back in sinus rhythm his chest pains and symptoms have
resolved.
He has been compliant with his Xarelto. He was having some diarrhea and GI symptoms for the past several days with some dehydration.
Fortunately he is back in sinus rhythm. He will continue the Xarelto. We discussed increasing his carvedilol but he has had orthostasis in the past we agreed to make no changes and let him recover from his illness.
Cardiac troponins are negative. At this point I would not further pursue ischemic evaluation once he has recurrent symptoms. Will discuss this with his outpatient public opinion survey taker.
Creatinine is at 1.7 (baseline 1.4-2.0)
Original Note:
Consultation
Consultation Request
Date/Time Consultation Requested: 12/11/23 at 0009
Date/Time Consultation Performed: 12/11/23 at 0737
Requesting Provider: Dr. Wong
Performing Provider: Dr. Arias
Reason for Consultation: Chest pain
Medical History
-
History of Present Illness:
Patient came to [facility] yesterday with chest pain and an irregular pulse and was admitted after an unsuccessful CV with cardiology being consulted. 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
with his typical angina described as a left sided chest pain. He tried taking a NTG SL x1 and had immediate relief of pain, but his pain came back a few minutes later which is unusual for him. He then started to feel diaphoretic and lightheaded. He
checked his pulse and it was rapid and irregular. He came to [facility] and was found to be in Afib with RVR with HR as high as 163. ECG in rapid Afib with lateral ST depressions. Cardizem 20 mg IV x1 and then Cardizem gtt started without conversion so an
attempt was made a DC CV. Patient had 200 j x2 without success and after conferring with cardiology the ER attempted 360 j x2 without success. Patient was admitted and given Lopressor 25 mg PO x1. He spontaneously converted to SR early this morning.
He feels symptomatically improved. Patient with a known h/o pAfib, but overall burden is low. He takes Xarelto 20 mg daily. He thinks his Afib was precipitated by a viral type illness that he and his experienced over the last week that included
4 days of liquid diarrhea for him and he had GASPER with Cre 1.9 on admission.
PMH:
Paroxysmal Afib
Chronic Xarelto OAC
CKD 3b
Recovered mixed ischemic and nonischemic CM, EF previously 20%, then 50% 09/2017, then 60-65% by echo 02/28/21, then 50% by echo 10/09/23
Chronic systolic/diastolic CHF
CAD, single vessel s/p 3.0 mm Xience to mid RCA 10/14/19
Frequent PVCs
h/o hypertension
h/o orthostasis and syncope
Alcohol use
GERD
Degenerative disc disease
Dyslipidemia
Carpal tunnel syndrome on right
Chronic back pain with history of spinal stenosis and prior back surgery
History of nephrolithiasis
Osteoarthritis degenerative disc disease
Past Medical History
Past Medical History: Other (in HPI)
Past Surgical History: Cardiac (RCA PCI 10/14/19), Cholecystectomy and Orthopedic
Social History
Tobacco: Former Smoker
Alcohol: Daily (4 oz of liquor daily)
Drug: Marijuana
Personal:
Living: With Family
Family History
Family History: CAD, Cancer and Hypertension
Allergies / Home Medications
Allergy/AdvReac Type Severity Reaction Status Date / Time
amoxicillin Allergy Nausea / Verified 12/10/23 20:27
Vomiting
anise oil Allergy Rash/SOB Verified 12/10/23 20:27
doxycycline Allergy Vomiting Verified 12/10/23 20:27
meperidine HCl [From Demerol] Allergy Nausea Verified 12/10/23 20:27
pollen extracts Allergy nasal Verified 12/10/23 20:27
congestion,
watery eyes
atorvastatin [From Lipitor] AdvReac Mild Unknown Verified 12/10/23 20:27
rosuvastatin [From Crestor] AdvReac Mild Unknown Verified 12/10/23 20:27
codeine [Codeine] AdvReac UPSET Verified 12/10/23 20:27
STOMACH
pentazocine [From Talwin] AdvReac Confusion, Verified 12/10/23 20:27
hallucinations
�Medication �Instructions �Recorded �Confirmed �Type
furosemide 40 mg tablet 20 mg PO PRN PRN edema, weight gain 10/01/17 12/11/23 History
carvedilol 12.5 mg tablet 6.25 mg PO BID Blood pressure 02/11/19 12/11/23 History
aspirin 81 mg tablet,delayed 81 mg PO DAILY Blood clot 10/14/19 12/11/23 History
release prevention/tx
multivitamin with folic acid 400 1 tab PO DAILY Supplement 10/14/19 12/11/23 History
mcg tablet (Tab-A-Flakito)
pantoprazole 40 mg tablet,delayed 40 mg PO DAILY Gastrointestinal 10/14/19 12/11/23 History
release issue
sildenafil 100 mg tablet (Viagra) 100 mg PO DAILYPRN PRN sexually 10/15/19 09/20/23 Rx
activity ##0
nitroglycerin 0.4 mg sublingual 0.4 mg sublingual [id number] PRN 02/13/21 12/11/23 History
tablet CHEST PAIN
acetaminophen 500 mg tablet 1,000 mg PO Q6HPRN PRN mild pain 07/03/22 12/11/23 History
amlodipine 2.5 mg tablet 2.5 mg PO HS 07/03/22 12/11/23 History
ezetimibe 10 mg tablet (Zetia) 10 mg PO HS 07/03/22 12/11/23 History
fluticasone propionate 45 2 puff inhalation R BID PRN sob 07/03/22 12/11/23 History
mcg-salmeterol 21 mcg/actuation
HFA inhaler
levalbuterol tartrate 45 2 puff inhalation R Q4HPRN PRN sob 07/03/22 09/20/23 History
mcg/actuation aerosol inhaler
rivaroxaban 20 mg tablet (Xarelto) 20 mg PO QPM 07/03/22 12/11/23 History
sacubitril 49 mg-valsartan 51 mg 1 tab PO BID 07/03/22 12/11/23 History
tablet (Entresto)
Medical Marijuana 1 dose PO HS PRN mild pain/sleep 06/26/23 12/11/23 History
Review of Systems
-
History Source: Patient
All other systems: Negative unless noted
Physical Exam
Vital Signs
Temp Pulse Resp BP Pulse Ox
97.8 F 65 20 103/86 99
12/11/23 07:12 12/11/23 06:00 12/11/23 07:12 12/11/23 04:08 12/11/23 07:12
GEN: NAD, AAOx3
HEENT: EOMI, MMM
LUNGS: CTA B/L, no wheezes or rales
CV: Reg, S1/S2, no murmur
ABD: soft, BS+, NT, ND
EXT: No clubbing, cyanosis, lesions or edema B/L
NEURO: Gross non-focal
SKIN: Warm, dry and pink. No rash
Lab Results
12/11/23 04:14
12/11/23 04:14
Troponin I 0.016 ng/ml D 12/10/23 23:53
Onl-W-Aehfywwvcgt Pept 85.4 pg/ml 12/10/23 20:47
Impression / Plan
-
PCP: Nikki Subramanian PLANNING TECHNICIAN
Cardiology: Dr. Ирина Sun
Impression:
Chest pain
Afib with RVR
unsuccessful CV 200 j x2 then 360 j x2 in ER 12/11/23
Paroxysmal Afib
Chronic Xarelto OAC
GASPER on CKD 3b
Recovered mixed ischemic and nonischemic CM, EF previously 20%, then 50% 09/2017, then 60-65% by echo 02/28/21, then 50% by echo 10/09/23
Chronic systolic/diastolic CHF
CAD, single vessel s/p 3.0 mm Xience to mid RCA 10/14/19
Frequent PVCs
h/o hypertension
h/o orthostasis and syncope
Alcohol use
GERD
Degenerative disc disease
Dyslipidemia
Carpal tunnel syndrome on right
Chronic back pain with history of spinal stenosis and prior back surgery
History of nephrolithiasis
Osteoarthritis degenerative disc disease
Exercise nuclear stress test 10/13/23: Patient completed 6 minutes Marco Antonio protocol, 7 METS activity, 103% MPHR, myocardial perfusion imaging normal, EF 52%
Echo 10/24/17: shows EF 50% with no significant valvular disease
Echo 02/28/21: EF 60-65%, mild basal inferolateral and basal inferior hypokinesis, mild conc LVH, normal diastolic function, mild MR
Echo 10/09/23: EF 50%, basal inferior and basal inferoseptum are akinetic, moderate concentric LVH, normal RV size and function
Plan:
-Patient came to [facility] yesterday with chest pain and an irregular pulse and was admitted after an unsuccessful CV with cardiology being consulted. 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
with his typical angina described as a left sided chest pain. He tried taking a NTG SL x1 and had immediate relief of pain, but his pain came back a few minutes later which is unusual for him. He then started to feel diaphoretic and lightheaded. He
checked his pulse and it was rapid and irregular. He came to [facility] and was found to be in Afib with RVR with HR as high as 163. ECG in rapid Afib with lateral ST depressions. Cardizem 20 mg IV x1 and then Cardizem gtt started without conversion so an
attempt was made a DC CV. Patient had 200 j x2 without success and after conferring with cardiology the ER attempted 360 j x2 without success. Patient was admitted and given Lopressor 25 mg PO x1. He spontaneously converted to SR early this morning.
He feels symptomatically improved. Patient with a known h/o pAfib, but overall burden is low. He takes Xarelto 20 mg daily. He thinks his Afib was precipitated by a viral type illness that he and his experienced over the last week that included
4 days of liquid diarrhea for him and he had GASPER with Cre 1.9 on admission.
-Remains in SR, cont usual dose of Coreg 6.25 mg BID, ordered by me to start now. Patient is not interested in higher dose Coreg due to recent orthostasis and syncope 08/2023.
-Cardizem gtt stopped early this AM
-Cont usual dose of Xarelto 20 mg daily
-Consider decreasing Coreg to 6.25 mg BID. Patient has a h/o recovered CM and has previously had orthostasis limiting uptitration of GDMT.
-No recurrence of chest pain since arrival in ER. Troponin normal x3. ECG reviewed by me with lateral ST depression that improved with anabaptism of SR. Exercise nuclear stress test showed normal perfusion 10/13/23. Recheck echo to look for WMA, but
will manage chest pain medically for now. No indication for invasive ischemic evaluation.
-He takes Lasix 20 mg daily PRN and reports last dose was more than a week ago.
[2023-12-11] MEDS: FOLVITE 1 MG PO (08:42)
[2023-12-11] MEDS: ASPIR LOW (ENTERIC COATED) 81 MG PO (08:44)
[2023-12-11] MEDS: PROTONIX 40 MG PO (08:44)
[2023-12-11] MEDS: VITAMIN B1 100 MG PO (08:44)
[2023-12-11] MEDS: THERAGRAN 1 TABLET PO (08:44)
[2023-12-11 10:01] LABS: Troponin I < 0.012 ng/ml
--- NOTE | 2023-12-11 10:26 | CM ---
Reviewed chart. Met with Mr. Hou to review discharge plans. He states prior to admission he resides with his spouse in a spilt level home wih seven steps to enter. He states he has seven steps to get to each level. He states prior to admission
he was independent with ambulation and adls. He states he has a Nebulizer at home that he uses as needed. He states he has a prescription plan and uses [facility]. Medical work-up in progress. The discharge plan is to return home with his
spouse when medically stable.
We reviewed if he was interested in getting information about formal counseling regarding alcohol cessation support services. He states at this time he is not interested in the information
[2023-12-11 11:09] VITALS: BP 109/82
[2023-12-11] MEDS: COREG 6.25 MG PO (11:11)
[2023-12-11] MEDS: NSS IV (11:11)
[2023-12-11] MEDS: XOPENEX HFA 45 MCG INHALER 2 PUFF INH (13:11)
--- NOTE | 2023-12-11 14:45 | W.PN.HOSP.TC ---
Addendum entered and electronically signed by Gavin Wong MD 12/12/23 16:47:
[id number]
Original Note:
Today's Communication/Plan
-
no changes in meds
f/u cards closely outpatient
f/u pcp within 1 week
Assessment / Plan
Assessment / Plan
GEN: NAD, AAOx3
HEENT: EOMI, MMM
LUNGS: CTA B/L, no wheezes or rales
CV: Reg, S1/S2, no murmur
ABD: soft, BS+, NT, ND
EXT: No clubbing, cyanosis, lesions or edema B/L
NEURO: Gross non-focal
SKIN: Warm, dry and pink. No rash
# Atrial fibrillation with RVR likely triggered by hypovolemia from recent diarrhea
-Resolved; echo stable
-Initial EKG showed atrial fibrillation RVR initial heart rate of 154
-IV fluids given
-Patient was given Cardizem initially without improvement, cardioverted twice at 200 J without improvement and then at 360 J twice without improvement
-Cardiology recommended avoiding Cardizem due to cardiomyopathy and recommended initial dose of Lopressor 25 mg oral followed by metoprolol every 6 hours as needed for tachycardia
-Continue Xarelto
-Trend troponins due to chest pain
-CXR and COVID negative
-back into sinus - cont home meds
# CKD 3
-stable
-ctm outpatient
# Recent diarrhea
-resolving
#Alcohol use disorder
-Alcohol withdrawal protocol
-Thiamine and folate
CAD status post stent
-Continue aspirin
Ischemic cardiomyopathy with recovered EF/HFpEF
-Recent echo shows ejection fraction 50 to 55%
-Resume Coreg
-resume Entresto
-Resume Lasix prn
History of frequent PVCs
Essential hypertension
-amlodipine
Hyperlipidemia
-Continue Zetia
History of esophageal food
History of esophageal spasm
GERD
-Continue Protonix
Reactive airway disease/COPD
-Continue levalbuterol
Degenerative disc disease
Right-sided carpal tunnel syndrome
Chronic back pain/spinal stenosis
Nephrolithiasis
Full code
DVT prophylaxis Xarelto
Cardiac diet
More than 30 minutes spent in discharge including
Final examination of the patient
Summarizing hospital stay
Instructions for continuing care to all relevant caregivers
Preparation of discharge records, prescriptions, and referral forms
Total time spent (35 in minutes):
Anticipated Discharge: Today
Subjective/Interval History
-
Date of Service: December 11, 2023
Feels better, diarrhea improved, heart rate controlled
Objective Data
-
Labs:
Laboratory Results
12/11/23
04:14
WBC 10.2
Hgb 13.9
Hct 41.7
Plt Count 372 D
Sodium 135
Potassium 4.4
Chloride 109 H
Carbon Dioxide 21 L
BUN 30 H
Creatinine 1.7 H
Glucose 98
Calcium 8.8 D
Total Bilirubin 0.6
AST 21
ALT 11
Alkaline Phosphatase 51
Vital Signs:
Vital Signs
Temp Pulse Resp BP Pulse Ox
97.6 F 68 16 109/82 100
12/11/23 11:09 12/11/23 13:13 12/11/23 13:13 12/11/23 11:11 12/11/23 11:09
I&O
12/10/23 12/11/23 12/12/23
06:59 06:59 06:59
Intake Total 860 / 860
Balance 860 / 860
Review of Systems
-
History Source: Patient
All other systems: Not reviewed unless documented
Data Reviewed
-
Diagnostic Radiology: Image personally visualized and interpreted and Report Reviewed by me
Labs: Labs Reviewed by me
--- NOTE | 2023-12-11 14:50 | W.DS.TRANS ---
DC Summary - Recycling Program Manager
-
Discharge Instructions:
Discharge Diagnosis/Procedures Atrial fibrillation with RVR
Diet Low Cholesterol,Low Fat,Low Residue
Activity As tolerated
Driving Restrictions As prior to admission
Bathing Restrictions None
Specialty Instructions Weigh Daily
Instructions:
Stand-Alone Forms:
Changes to Home Medications: No
Discharge Medications:
DC Medications w/original date entered in [email or web address]
furosemide 40 mg tablet 20 mg PO PRN PRN edema, weight gain 10/01/17
carvedilol 12.5 mg tablet 6.25 mg PO BID Blood pressure 02/11/19
aspirin 81 mg tablet,delayed release 81 mg PO DAILY Blood clot prevention/tx 10/14/19
multivitamin with folic acid 400 mcg tablet (Tab-A-Flakito) 1 tab PO DAILY Supplement 10/14/19
pantoprazole 40 mg tablet,delayed release 40 mg PO DAILY Gastrointestinal issue 10/14/19
sildenafil 100 mg tablet (Viagra) 100 mg PO DAILYPRN PRN sexually activity ##0 10/15/19
nitroglycerin 0.4 mg sublingual tablet 0.4 mg sublingual [id number] PRN CHEST PAIN 02/13/21
acetaminophen 500 mg tablet 1,000 mg PO Q6HPRN PRN mild pain 07/03/22
amlodipine 2.5 mg tablet 2.5 mg PO HS Blood Pressure 07/03/22
ezetimibe 10 mg tablet (Zetia) 10 mg PO HS High Cholesterol 07/03/22
fluticasone propionate 45 mcg-salmeterol 21 mcg/actuation HFA inhaler 2 puff inhalation R BID PRN sob 07/03/22
levalbuterol tartrate 45 mcg/actuation aerosol inhaler 2 puff inhalation R Q4HPRN PRN sob 07/03/22
rivaroxaban 20 mg tablet (Xarelto) 20 mg PO QPM Blood Clot Prevention/Tx 07/03/22
sacubitril 49 mg-valsartan 51 mg tablet (Entresto) 1 tab PO BID Heart Failure 07/03/22
Medical Marijuana 1 dose PO HS PRN mild pain/sleep 06/26/23
Home Medication Changes
na
Pending Results: No
[2023-12-11 15:14] VITALS: BP 125/85
--- NOTE | 2023-12-11 16:09 | PTCARENOTE ---
Pt seen by KASSI Torres and Drs. Juana Wong. Pt had an ECHO done. Telemetry remained in sinus rhythm. Telemetry and IV device removed. Discharge instructions reviewed with pt regarding medications (none new), reporting cares and
concerns, CHF guidelines and follow up appt's. Very good understanding verbalized. Pt escorted out via wheelchair and discharged to home via his own car.
== END 2023-12-11 15:40 | disposition home or self-care (01) | DRG 309 ==
LOC: IVU 23:28
PROVIDERS: Physician Assistant Medical; ADMITTING PHYSICIAN Hospitalist; ATTENDING PHYSICIAN Internal Medicine; EMERGENCY PHYSICIAN Student in an Organized Health Care Education/Training Program; FAMILY PHYSICIAN Nurse Practitioner Family; OTHER PHYSICIAN Internal Medicine Cardiovascular Disease
PROC: 5A2204Z Restoration of Cardiac Rhythm, Single (ICD-10-PCS; 2023-12-10)
DX: I48.0 Paroxysmal atrial fibrillation (principal); I13.0 Hypertensive heart and chronic kidney disease with heart failure and stage 1 through stage 4 chronic kidney disease, or unspecified chronic kidney disease; I50.42 Chronic combined systolic (congestive) and diastolic (congestive) heart failure; N17.9 Acute kidney failure, unspecified; J44.9 Chronic obstructive pulmonary disease, unspecified; N18.32 Chronic kidney disease, stage 3b; I42.8 Other cardiomyopathies; I95.9 Hypotension, unspecified; E78.00 Pure hypercholesterolemia, unspecified; E86.1 Hypovolemia; G56.01 Carpal tunnel syndrome, right upper limb; G89.29 Other chronic pain; I25.5 Ischemic cardiomyopathy; I25.2 Old myocardial infarction; I25.119 Atherosclerotic heart disease of native coronary artery with unspecified angina pectoris; K21.00 Gastro-esophageal reflux disease with esophagitis, without bleeding; K29.70 Gastritis, unspecified, without bleeding; M19.90 Unspecified osteoarthritis, unspecified site; M48.00 Spinal stenosis, site unspecified; F10.90 Alcohol use, unspecified, uncomplicated; R19.7 Diarrhea, unspecified; Z79.01 Long term (current) use of anticoagulants; Z79.82 Long term (current) use of aspirin; Z79.899 Other long term (current) drug therapy; Z86.79 Personal history of other diseases of the circulatory system; Z87.19 Personal history of other diseases of the digestive system; Z87.891 Personal history of nicotine dependence; Z95.5 Presence of coronary angioplasty implant and graft; Z87.442 Personal history of urinary calculi; Z88.0 Allergy status to penicillin; Z88.1 Allergy status to other antibiotic agents; Z88.5 Allergy status to narcotic agent; Z11.52 Encounter for screening for COVID-19
CPT/HCPCS: 93308; 71045; 80053; 83880; 84484; 85025; 85610; 85730; 87811; 92960; 93005; 94640; 96374; 96375; 96376; 99152; 99291

== ENCOUNTER → 2024-02-10 12:17 | Outpatient (REF) | payer MEDICARE, SELFPAY ==
[2024-02-10 15:45] LABS: Blood Urea Nitrogen 30 mg/dl (9-20); Calcium 9.5 mg/dl (8.4-10.2); Carbon Dioxide 30 mmol/L (22-30); Chloride 100 mmol/L (98-107); Glucose 113 mg/dl (70-99); Potassium 4.7 mmol/L (3.5-5.1); Sodium 139 mmol/L (135-145); eGFR 50.71
== END ==
LOC: HWLAB 12:17
PROVIDERS: ATTENDING PHYSICIAN Student in an Organized Health Care Education/Training Program; FAMILY PHYSICIAN Nurse Practitioner Family
DX: Z01.818 Encounter for other preprocedural examination (principal)
CPT/HCPCS: 36415; 80048

== ENCOUNTER → 2024-02-27 10:46 | Outpatient (REF) | payer MEDICARE, SELFPAY | LOC: RAD 10:46 | PROVIDERS: ATTENDING PHYSICIAN Student in an Organized Health Care Education/Training Program; FAMILY PHYSICIAN Nurse Practitioner Family | DX: M79.662 Pain in left lower leg (principal) | CPT/HCPCS: 93971 ==

== ENCOUNTER → 2024-03-02 13:58 | Outpatient (REF) | payer MEDICARE, SELFPAY | LOC: HWRAD 13:58 | PROVIDERS: ATTENDING PHYSICIAN Student in an Organized Health Care Education/Training Program; FAMILY PHYSICIAN Nurse Practitioner Family | DX: M19.172 Post-traumatic osteoarthritis, left ankle and foot (principal) | CPT/HCPCS: 73700 ==

== ENCOUNTER → 2024-08-31 09:57 | Outpatient (REF) | payer MEDICARE, SELFPAY | LOC: RAD 09:57 | PROVIDERS: ATTENDING PHYSICIAN Surgery Vascular Surgery; FAMILY PHYSICIAN Nurse Practitioner Family | DX: I71.40 Abdominal aortic aneurysm, without rupture, unspecified (principal) | CPT/HCPCS: 76770 ==

== ENCOUNTER 2024-09-22 18:49 | Inpatient (IN) | payer MEDICARE, SELFPAY ==
[2024-09-22] VITALS (10 sets, daily range): BP systolic 124–157; BP diastolic 79–107; BMI 29.7; BMI 29.1
[2024-09-22 12:35] LABS: % Basophils 0.6 % (0-2); % Eosinophils 6.8 % (0-6); % Immature Granulocytes 0.4 % (0-0.5); % Monocytes 9.1 % (1.7-9.3); % Neutrophils 68.1 % (42.2-75.2); Absolute Basophils 0.1 10^3/uL (0-0.2); Absolute Eosinophils 0.6 10^3/uL (0-0.7); Absolute Lymphocytes 1.3 10^3/uL (1.2-3.4); Absolute Monocytes 0.8 10^3/uL (0.1-0.6); Absolute Neutrophils 5.7 10^3/uL (1.4-6.5); Hematocrit 44.5 % (39.0-52.0); Mean Corp Hgb Conc. 31.5 g/dL (33.0-37.0); Mean Corpuscular Hgb 30.1 pg (27.0-31.0); Mean Corpuscular Volume 95.7 fL (80.0-94.0); Mean Platelet Volume 9.6 fL (7.4-10.4); Nucleated Red Blood Cells % 0 % (-); Platelet Count 360 10^3/uL (130-400); Red Blood Cell Count 4.65 10^6/uL (4.70-6.10); Red Cell Dist. Width 15.6 % (11.5-14.5); White Blood Cell Count 8.4 10^3/uL (4.8-10.8)
[2024-09-22 12:48] LABS: ALT (SGPT) 15 U/L (0-50); AST (SGOT) 23 U/L (17-59); Albumin 4.4 g/dl (3.5-5.0); Alkaline Phosphatase 57 U/L (38-126); Blood Urea Nitrogen 22 mg/dl (9-20); Calcium 9.8 mg/dl (8.4-10.2); Carbon Dioxide 32 mmol/L (22-30); Chloride 108 mmol/L (98-107); Glucose 129 mg/dl (70-99); Potassium 4.9 mmol/L (3.5-5.1); Sodium 146 mmol/L (135-145); Total Bilirubin 0.5 mg/dl (0.2-1.3); Total Protein 6.9 g/dl (6.3-8.2); eGFR 55.09
[2024-09-22 12:59] LABS: Troponin I < 0.012 ng/ml
--- NOTE | 2024-09-22 15:57 | ED.GENMED ---
History of Present Illness
General
Chief Complaint: Chest Pain
Source: patient
Time Seen by Provider: 09/22/24 15:56
History of Present Illness
History of Present Illness:
68-year-old male presents to the emergency room complaining of chest pain. Patient has been having chest discomfort intermittently the past couple days which she describes as angina. The discomfort is located in his central chest and described as
a burning type sensation.. He does have a history of coronary artery disease it is noted Dr. Ирина Sun. He does not typically have angina though he does have nitroglycerin. He did take a nitro yesterday for chest discomfort which made the
discomfort go away. Today took 2 nitro to make his chest discomfort go away. Patient's last cardiac catheterization was in 2019 at which point he had a stent in the RCA. Patient admits to resuming smoking and drinking an increased amount of
alcohol over the past few weeks.
Past History
Past History
ED Past Medical History: Asthma, CAD, CHF, COPD, GERD, HTN, Hypercholesterolemia and Other (Kidney stones, Gastritis, Esophagitis,)
ED Past Surgical History: Cholecystectomy and Orthopedic
Social History
Tobacco: Non-smoker
Alcohol: Daily (Capt[place] Rito 6-8 oz)
Drug: None
Personal:
Living: with family
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
Family History
Family History: Other; Negative Sudden
Phy Exam
Physical Exam
Physical Exam:
General: Awake, Alert, Oriented X3. No acute distress.
Vitals: unremarkable
Head: Atraumatic
Eyes: Pupils equal, EOMI
Throat: Airway intact, no exudates
Neck: Trachea midline
Lungs: Clear and equal b/l
Heart: Regular rate, no murmurs
Abd: Soft, Nontender, No pulsatile mass
Neuro: Nonfocal
Skin: Warm, dry, no rash
Extremities: pulses equal b/l, no edema
Scores
Heart Score for Chest Pain Patients
STEMI patient?: No
History: Highly Suspicious
ECG: Nonspecific Repolarization
Age: >/= 65 years
Risk Factors: >/= 3 Risk Factors or History of CAD
Troponin: </= Normal Limit
Heart Score for Chest Pain Patients: 7
Heart Score Risk: 72.7 % MACE over next 6 weeks
Course
Orders/Labs/Results
Orders:
Orders
09/22/24 12:10
Electrocardiogram (*1) Urgent
Reason for Study: Chest Pain
EKG- Treatment ONCE
09/22/24 12:24
Complete Blood Count/With Diff Urgent
Comprehensive Metabolic Panel Urgent
Magnesium Urgent
Comment: ADDON
Phosphorus Urgent
Comment: ADDON
Troponin I Urgent
09/22/24 Dinner
Cholesterol Lowering
At Your Request: Full Participation
Cholesterol Lowering: Sodium, 2 Gram
CR Chest - 2 Views Urgent
Reason For Exam: CHEST PAIN
09/22/24 15:34
Troponin I Routine
09/22/24 17:42
Aspirin Chewable [Low Strength Aspirin] 243 mg PO NOW STA
09/22/24 18:12
Admit/Transfer Patient As Directed
Co-Sign Provider:
Level of Care: Observation services
Assign to:: Telemetry
Physician / Group: Sera Duenas
Diagnosis: unstable angina
Reason for Telemetry: Chest Pain syndromes
Date to Stop Telemetry: 09/24/24
Time to Stop Telemetry: 11:00
PRN Pain Medication Management As Directed
May give lesser potent ordered pain med per pt: Yes
preference::
Protocol:: Medication orders for pain may be administered in a
manner that supports deferring to patient preference
when the pt is:
- Requesting an ordered lesser potent pain medication.
Least to most potent pain medications are defined
as: acetaminophen < NSAID < tramadol < opioids
(morphine, oxycodone, hydromorphone).
- Requesting a lesser dose of the same medication IF
ORDERED.
- Requesting a less intrusive route of administration
if both routes are prescribed by the provider (PO <
IV).
09/22/24 18:14
Code Status As Directed
Resuscitation Status: Full Code
09/22/24 18:21
Add On- LAB Routine
Tests Added?: magnesium, phosphorous
09/22/24 19:05
EKG [Electrocardiogram (*1)] Urgent
Reason for Study: Chest Pain
EKG- Treatment ONCE
09/22/24 19:09
Nitroglycerin Sublingual [Nitrostat (Sublingual)] 0.4 mg SL NOW STA
Nitroglycerin Sublingual [Nitrostat (Sublingual)] 0.4 mg SL [id number] PRN
09/22/24 19:33
0.9% Sodium Chloride [Nss (Preservative Free)] See Protocol IV PRN PRN
Acetaminophen [Tylenol] 650 mg PO Q4HPRN PRN
Bisacodyl [Dulcolax] 10 mg RECTAL [id number] PRN
Docusate W/Senna [Senokot-S] 1 tablet PO BIDPRN PRN
FOLic ACID [Folvite] 1 mg 0.9% Sodium Chloride 50 ml [Nss] 50 ml IV DAILYPRN
Lorazepam [Ativan] 1 mg IV Q1HPRN PRN
Lorazepam [Ativan] 1 mg PO Q2HPRN PRN
Lorazepam [Ativan] 2 mg IV Q1HPRN PRN
Polyethylene Glycol Powder [Miralax] 17 grams PO DAILYPRN PRN
09/22/24 19:33
Consult Cardiology [CARDIOLOGY CONSULT] Routine
Consulting Provider: Scheiring,[place]
Was physician already notified: Yes
DIETARY IP CONSULT Routine
Reason for Consult: Nutrition support, possible refeeding guidelines
Heparin Protocol- PTT Orders As Directed
PTT per Heparin protocol: -Obtain CBC and baseline PTT - if not already collected.
-Obtain PTT 6 hours from start of infusion. Then, every 6 hours until 2 consecutive
PTT's are therapeutic. Then, PTT Daily.
-With each rate change, obtain PTT every 6 hours until 2 consecutive PTT's are
therapeutic. Then, PTT Daily.
Activity As Directed
Activity Level: As Tolerated
MSAS SCORE As Directed
MSAS Score 0-4: Repeat MSAS every 2 hours until 0-4 for three consecutive assessments, then every 4 hours x 48
hours.
MSAS Score 5-7: For MILD withdrawl symptoms. Repeat MSAS and RASS every 2 hours
MSAS Score 8-11: For MODERATE withdrawal symptoms. Repeat MSAS and RASS every 1 hour. Consider ICU or IMU
level of care.
MSAS Score > 11: For SEVERE withdrawal symptoms. Repeat MSAS and RASS every 1 hour. Notify provider, consider
ICU level of care.
MSAS Additional Instructions: If no improvement or no decrease in score from severe to moderate within 12
hours, consult psychiatry
MSAS Notify Provider: Notify provider if patient requires more than 10 mg of Lorazepam in eight hour period.
Notify MD As Directed
Notify physician if: PTT is greater than or equal to [address] Non Medication Order As Directed
Physician Order: please start heparin gtt at 8PM (without bolus)
Above order entered?: Yes
Vital Signs As Directed
Frequency: Per unit guidelines
09/22/24 19:55
PTT Urgent
Comment: Obtain baseline before beginning heparin infusion if not already collected
Furosemide [Lasix] 20 mg PO DAILYPRN PRN edema, weight gain
09/22/24 20:00
Carvedilol [Coreg] 12.5 mg PO BID
Carvedilol [Coreg] 6.25 mg PO BID
Flush (0.9% Sodium Chloride) [Flush (Nss)] See Dose Instructions IV PER PROTOCOL
Heparin 65200 Units/250 ml 25,000 units in 250 ml IV PER PROTOCOL
Weight to be used for heparin protocol in kilograms (kg):: 99.1
Protocol:: Cardiac Tx/Acute Coronary
PTT Goal Range to be used:: PTT 73 to 111 seconds
Order type:: Initial
INITIAL Infusion Dose (UNITS/KG/hr) & then follow protocol:: 12 units/kg/hr
Infusion Dose in UNITS/hr & then follow protocol (UNITS/hr):: 1,000
INFUSION RATE in mL/hr & then follow protocol (mL/hr):: 10
PTT less than or equal to 64 seconds:: Increase rate by 200 units/hr (+ 2 mL/hr)
PTT 64.1 to 72.9 seconds:: Increase rate by 100 units/hr (+ 1 mL/hr)
PTT 73 to 111 seconds:: Target Range. No change in rate.
PTT 111.1 to 130.9 seconds:: Decrease rate by 100 units/hr (- 1 mL/hr)
PTT 131 to 199.9 seconds:: HOLD for 1 hr. Then decrease rate by 200 units/hr (- 2 mL/hr)
PTT greater than or equal to 200 seconds:: HOLD for 2 hrs & Notify Provider. Then decrease by 200 units/hr (-
2 mL/hr)
Lab follow-up:: Each change, PTT q6h until 2 consecutive are therapeutic. Then PTT
daily.
Sacubitril 49/Valsartan 51 [Entresto 49 mg/51 mg] 1 tab PO BID
Thiamine Injection 200 mg IV Q12
09/22/24 21:44
Troponin I Q6H
09/22/24 22:00
Amlodipine [Norvasc] 2.5 mg PO HS
09/22/24 22:38
Lorazepam [Ativan] 0.5 mg PO NOW STA
09/23/24 02:32
Basic Metabolic Panel IN AM
Cardiovascular Evaluation Routine
Comment: ADD ON
Magnesium IN AM
PTT Routine
Comment: HEPARIN GTT
Troponin I Q6H
09/23/24 07:03
PTT Routine
09/23/24 07:50
Electrocardiogram (*1) Routine
Reason for Study: Chest Pain
09/23/24 08:00
Aspirin Low Dose EC [Aspir Low (Enteric Coated)] 81 mg PO DAILY
Budesonide/Formoterol 80/4.5 [Symbicort 80/4.5 Mcg Inhaler] 2 puff INH R BID
Ezetimibe [Zetia] 10 mg PO DAILY
FOLic ACID [Folvite] 1 mg PO DAILY
Pantoprazole [Protonix] 40 mg PO DAILY
Tiotropium [place] 2.5 Mcg [Spiriva Respimat 2.5 Mcg] 2 puff INH R DAILY
09/23/24 08:23
Echo 2D MMode Color/Doppler Urgent
Reason for Study: CP, CAD
09/23/24 09:24
Transfer Patient As Directed
Transfer to: IVU
09/23/24 09:29
Add On- LAB Routine
Tests Added?: lipid panel
09/23/24 09:30
Nitroglycerin 100 mg/250 ml [Nitroglycerin Premix] 100 mg in 250 ml IV PER PROTOCOL
Initial dose in mcg/min, then titrate:: 20
Titrate to keep:: Chest Pain Free
Titrate by mcg/min:: 5 mcg/min, may increase by 10 mcg/min if dose > 20 mcg/min
Frequency of titrations (minutes):: every 3-5 minutes
Maximum dose in mcg/min:: 200
Begin to taper infusion when:: Remained at goal for 2hrs
Taper by mcg/min:: 5 mcg/min
Frequency of taper (minutes) if patient maintains goal:: 30
Taper to off?: Yes
If infusion off & no longer maintaining goal:: Contact Provider
09/23/24 09:40
Troponin I Urgent
09/23/24 14:43
PTT Urgent
09/24/24 06:00
Complete Blood Count/No Diff IN AM
Comment: Notify MD if platelet count is <130,000 or decreases by 50% from baseline
09/24/24 11:00
DC Protocol for Telemetry ONCE
09/25/24 06:00
Complete Blood Count/No Diff IN AM
Comment: Notify MD if platelet count is <130,000 or decreases by 50% from baseline
09/25/24 20:00
Thiamine HCl [Vitamin B1] 100 mg PO BID
09/26/24 06:00
Complete Blood Count/No Diff IN AM
Comment: Notify MD if platelet count is <130,000 or decreases by 50% from baseline
09/27/24 06:00
Complete Blood Count/No Diff IN AM
Comment: Notify MD if platelet count is <130,000 or decreases by 50% from baseline
09/28/24 06:00
Complete Blood Count/No Diff IN AM
Comment: Notify MD if platelet count is <130,000 or decreases by 50% from baseline
09/29/24 06:00
Complete Blood Count/No Diff IN AM
Comment: Notify MD if platelet count is <130,000 or decreases by 50% from baseline
09/30/24 06:00
Complete Blood Count/No Diff IN AM
Comment: Notify MD if platelet count is <130,000 or decreases by 50% from baseline
10/01/24 06:00
Complete Blood Count/No Diff IN AM
Comment: Notify MD if platelet count is <130,000 or decreases by 50% from baseline
Abnormal Lab Results
09/22/24 09/23/24 09/23/24
12:24 02:32 07:03
RBC 4.65 L 10^6/uL
(4.70-6.10)
MCV 95.7 H fL
(80.0-94.0)
MCHC 31.5 L g/dL
(33.0-37.0)
RDW 15.6 H %
(11.5-14.5)
Absolute Monos (auto) 0.8 H 10^3/uL
(0.1-0.6)
Lymphocytes % 15.0 L %
(20.5-51.1)
Eosinophils % 6.8 H %
(0-6)
APTT 78.8 H Sec 127.7 H Sec
(23.4-35.0) (23.4-35.0)
Sodium 146 H mmol/L
(135-145)
Chloride 108 H mmol/L 108 H mmol/L
(98-107) (98-107)
Carbon Dioxide 32 H mmol/L
(22-30)
BUN 22 H mg/dl 23 H mg/dl
(9-20) (9-20)
Creatinine 1.4 H mg/dL 1.4 H mg/dL
(0.7-1.3) (0.7-1.3)
Glucose 129 H mg/dl
(70-99)
09/22/24 12:24
09/23/24 02:32
Vital Signs
Initial and Last Documented VS:
Initial Vital Signs
Temp Pulse Resp BP Pulse Ox
97.6 F 80 16 153/93 100
09/22/24 12:12 09/22/24 12:12 09/22/24 12:12 09/22/24 12:12 09/22/24 12:12
Last Documented Vital Signs
Temp Pulse Resp BP Pulse Ox
98.2 F 73 18 101/77 97
09/23/24 23:25 09/23/24 22:30 09/23/24 23:25 09/23/24 22:24 09/23/24 23:25
MDM/Problems Addressed
Differential Diagnosis Includes:
Unstable angina, NSTEMI, GERD
MDM/Problems Addressed:
Patient presents with chest discomfort that has been occurring frequently over the past couple days. Patient has history of coronary artery disease. The overall presentation seems concerning for unstable angina. His troponins have remained normal
but he has been having episodes of chest discomfort that goes away with nitro even at rest. Case discussed with Dr. Penny who agrees with hospitalization for further cardiac evaluation.
*Radiology
Radiology exam reviewed: preliminary read by ED provider (No acute findings on my patient's chest)
*Pulse Oximetry
Patient hypoxic: no
*EKG
Interpretation: abnormal
Heart Rate: 65
Rate: normal
Rhythm: sinus
[place]: normal axis
Interval: normal interval
QRS Pattern: normal QRS
Ischemia: no ischemia
*Continuous Process Machine Operator Interpretation
Rate: normal
Interpretation: normal
Rhythm: sinus
*Critical Care Note
Total Time (30-74mins, 75-104mins- exclusive of procedures): Not Applicable
ED Attending Note
-
Portions of this chart may have been created with voice recognition software.� Occasional wrong word or��sound alike� substitutions may have occurred due to the inherent limitations of voice recognition software.
Discharge Plan
Departure
Patient Disposition: Admit
Date of Disposition: 09/22/24
Time of Disposition: 17:43
Admit to: Telemetry
Presentation/result/management discussed w/ accepting MD/DO: Hospitalist
Condition: Fair
Discharge Problem:
Chest pain, Unstable angina
Interventions
Interventions:
*Risk Screen - Suicide Last Done: 09/22/24 12:13
*General Assessment Last Done: 09/22/24 14:00
*Neglect/Abuse Screening Last Done: 09/22/24 12:13
*ED- Fall Risk Assessment Last Done: 09/22/24 14:00
*ED COVID-19 Vaccine History Last Done: 09/22/24 19:33
*Nursing Disposition Last Done: 09/22/24 19:33
ED- Cardiac Assessment Last Done: 09/22/24 14:00
Discharge Date and Time
Discharge Date/Time: 09/22/24 19:40
--- NOTE | 2024-09-22 15:58 | DOWNTIME ---
There was a [employer] Downtime on 09/22/2024 from 1230 to 09/22/2024 at 1550. Downtime documentation of patient's care, including medication administrations, has been reconciled in the electronic record per guidelines. Refer to the
patient's paper chart under the miscellaneous tab to see printed paper medication records and downtime forms.
[2024-09-22 16:42] LABS: Troponin I < 0.012 ng/ml
--- NOTE | 2024-09-22 17:44 | HPS.HSE ---
Family Physician
-
Family Physician: ANIL Gómez
Chief Complaint
-
chest pain
History of Present Illness
Mr. Jamaal Hou is a 68 yo man with hx HTN, HLD, paroxysmal atrial fibrillation, recovered cardiomyopathy with chronic HFpEF, CAD s/p PCI 09/2019 presents to the ER complaining of a burning chest pain, similar to what he experienced during NSTEMI
5 years ago.
Patient reports 5 episodes of chest discomfort over past week, all responsive to nitro. One happened while carrying groceries upstairs and the others at rest. Today he took a nitro while watching tv, chest pain initially resolved then returned
after 20 minutes, again responsive to nitro. Given quick recurrence, he decided to come to the ER. Currently chest pain free. Denies diaphoresis, nausea/vomiting. No lower extremity swelling. He is prescribed lasix as needed and has only taken
about 4-5 times over past year.
Patient reports smoking up to 1PPD over past several months then stopped last week. He also reports increased alcohol use 8-10 oz whiskey/day, then halved that amount.
No recent fevers. No cough/congestion. No abdominal pain.
Medical History
Past Medical History
Past Medical History: Reports Other ( atrial fibrillation on Xarelto, CAD status post stent, ischemic cardiomyopathy with improved EF, HFpEF, frequent PVCs, hypertension, hyperlipidemia, CKD 3B, esophageal food impaction, esophageal spasm, GERD,
reactive airway disease, degenerative disc disease, carpal tunnel of right side, chronic ba)
Past Surgical History: Reports Other (Cholecystectomy and Orthopedic)
Social History
Tobacco: Non-smoker
Alcohol: Daily
Drug: None
Family History
Family History: Not pertinent
Allergies / Home Medications
Allergies reflects when Allergies were last updated in [facility].
Home Medications with original date entered in [facility]
Allergy/Medication List:
Allergies
Allergy/AdvReac Type Severity Reaction Status Date / Time
amoxicillin Allergy Nausea / Verified 12/10/23 20:27
Vomiting
anise oil Allergy Rash/SOB Verified 12/10/23 20:27
doxycycline Allergy Vomiting Verified 12/10/23 20:27
meperidine HCl (From Demerol) Allergy Nausea Verified 12/10/23 20:27
pollen extracts Allergy nasal Verified 12/10/23 20:27
congestion,
watery eyes
atorvastatin (From Lipitor) AdvReac Mild Unknown Verified 12/10/23 20:27
rosuvastatin (From Crestor) AdvReac Mild Unknown Verified 12/10/23 20:27
codeine (Codeine) AdvReac UPSET Verified 12/10/23 20:27
STOMACH
pentazocine (From Talwin) AdvReac Confusion, Verified 12/10/23 20:27
hallucinations
Home Medications
furosemide 40 mg tablet 20 mg PO PRN PRN edema, weight gain 10/01/17
carvedilol 12.5 mg tablet 6.25 mg PO BID Blood pressure 02/11/19
aspirin 81 mg tablet,delayed release 81 mg PO DAILY Blood clot prevention/tx 10/14/19
multivitamin with folic acid 400 mcg tablet (Tab-A-Flakito) 1 tab PO DAILY Supplement 10/14/19
pantoprazole 40 mg tablet,delayed release 40 mg PO DAILY Gastrointestinal issue 10/14/19
sildenafil 100 mg tablet (Viagra) 100 mg PO DAILYPRN PRN sexually activity ##0 10/15/19
nitroglycerin 0.4 mg sublingual tablet 0.4 mg sublingual [id number] PRN CHEST PAIN 02/13/21
acetaminophen 500 mg tablet 1,000 mg PO Q6HPRN PRN mild pain 07/03/22
amlodipine 2.5 mg tablet 2.5 mg PO HS Blood Pressure 07/03/22
ezetimibe 10 mg tablet (Zetia) 10 mg PO HS High Cholesterol 07/03/22
fluticasone propionate 45 mcg-salmeterol 21 mcg/actuation HFA inhaler 2 puff inhalation R BID PRN sob 07/03/22
levalbuterol tartrate 45 mcg/actuation aerosol inhaler 2 puff inhalation R Q4HPRN PRN sob 07/03/22
rivaroxaban 20 mg tablet (Xarelto) 20 mg PO QPM Blood Clot Prevention/Tx 07/03/22
sacubitril 49 mg-valsartan 51 mg tablet (Entresto) 1 tab PO BID Heart Failure 07/03/22
Medical Marijuana 1 dose PO HS PRN mild pain/sleep 06/26/23
Review of Systems
-
History Source: Patient
A 12 point ROS was completed and negative except as noted: Yes
Physical Exam
Vital Signs
Vital Signs
Temp Pulse Resp BP Pulse Ox
97.6 F 65 18 127/81 98
09/22/24 12:12 09/22/24 16:05 09/22/24 16:05 09/22/24 16:05 09/22/24 16:05
Physical Exam
General: No Apparent Distress
HEENT: PERRLA
Respiratory: Clear; No Wheezes
Cardiac: S1/S2 and Regular Rhythm
GI: Soft and Non Tender
Musculoskeletal: No Edema
Skin: Warm and Dry; No Rash
Neuro: AO x 3
Psych: Calm
Laboratory Results
-
09/22/24 12:24
09/22/24 12:24
Laboratory Results
Total Bilirubin 0.5 mg/dl (0.2-1.3) 09/22/24 12:24
AST 23 U/L (17-59) 09/22/24 12:24
ALT 15 U/L (0-50) 09/22/24 12:24
Alkaline Phosphatase 57 U/L (38-126) 09/22/24 12:24
Troponin I < 0.012 ng/ml 09/22/24 15:34
Data Reviewed
-
Diagnostic Radiology: Report Reviewed by me
Lab Data: Labs Reviewed by me
Impression/Plan
-
Mr. Jamaal Hou is a 68 yo man with hx paroxysmal atrial fibrillation, recovered cardiomyopathy with chronic HFpEF, CAD s/p PCI 09/2019 presents to the ER complaining of chest pain.
Triage VS: T 97.6, P 80, RR 16, BP 153/98, Spo2 100%
LABS: Na 146, K+ 4.9, Cl 108, CO2 32, Cr 1.4 (baseline), Glucose 129, WBC 8.4, Hg 14, PLT 360
Troponin negative x 2
EKG: NSR @ 65, q waves inferior leads, no significant change from prior
MAR: asa 243mg PO x 1
Chest pain, concern for Unstable Angina
Hx Coronary Artery Disease
s/p RCA PCI 2019
-admit to observation
-trend Troponins
-will start IV Heparin gtt in place of MACHINIST APPRENTICE Xarelto (patient takes in evenings)
-NPO after MN until cardiology Evaluation
-s/p full dose aspirin dose; will continue home asa 81mg PO QD
-MACHINIST APPRENTICE Coreg
HFpEF
Recovered cardiomyopathy
Essential Hypertension
-MACHINIST APPRENTICE Coreg, Entresto
-patient takes Lasix as needed
Paroxysmal Atrial Fibrillation
-hold Xarelto, start IV heparin gtt this evening
Hyperlipidemia
Hx Tobacco Use
-patient stopped smoking last week
Alcohol Abuse
-MSAS protocol, no current signs of withdrawal
*awaiting home med rec
DVT PPx Heparin gtt
FULL CODE
76 minutes spent on patient care
[2024-09-22] MEDS: LOW STRENGTH ASPIRIN 243 MG PO (17:53)
--- NOTE | 2024-09-22 19:05 | EDRN ---
Patient with c/o chest burning after eating. EKG done.
--- NOTE | 2024-09-22 19:10 | EDRN ---
Elie text sent to to notify her.
[2024-09-22 19:11] LABS: Magnesium 1.9 mg/dl (1.6-2.3); Phosphorus 3.6 mg/dl (2.5-4.5)
[2024-09-22] MEDS: NITROSTAT (SUBLINGUAL) 0.4 MG SL ×3 (19:19→23:03)
[2024-09-22] MEDS: ENTRESTO 49 MG/51 MG 1 TAB PO (20:04)
[2024-09-22] MEDS: THIAMINE INJECTION 200 MG IV (20:05)
[2024-09-22] MEDS: COREG 6.25 MG PO (20:05)
[2024-09-22] MEDS: HEPARIN 25000 UNITS/250 ML IV (20:07)
[2024-09-22 20:13] LABS: APTT 34.4 Sec (23.4-35.0)
[2024-09-22 22:14] LABS: Troponin I < 0.012 ng/ml
[2024-09-22] MEDS: NORVASC 2.5 MG PO (23:02)
[2024-09-22] MEDS: ATIVAN 0.5 MG PO (23:03)
[2024-09-22] MEDS: TYLENOL 650 MG PO (23:03)
[2024-09-23] VITALS (17 sets, daily range): BP systolic 89–144; BP diastolic 56–97; BMI 29.1
[2024-09-23 03:08] LABS: APTT 78.8 Sec (23.4-35.0)
[2024-09-23 03:21] LABS: Troponin I < 0.012 ng/ml
[2024-09-23 03:44] LABS: Blood Urea Nitrogen 23 mg/dl (9-20); Carbon Dioxide 24 mmol/L (22-30); Chloride 108 mmol/L (98-107); Estimated Creatinine Clearance 56 ml/min; Glucose 90 mg/dl (70-99); Magnesium 1.8 mg/dl (1.6-2.3); Potassium 4.2 mmol/L (3.5-5.1); Sodium 138 mmol/L (135-145); eGFR 55.09
[2024-09-23] MEDS: NITROSTAT (SUBLINGUAL) 0.4 MG SL ×2 (06:10→07:36)
--- NOTE | 2024-09-23 06:26 | PTCARENOTE ---
1999 pt is aoox3, no c/o chest pain at this time. Heparin gtt started. pt oriented to room w/ call cancino in reach.
2099 pt got up to use the bathroom and reported left chest pain, arm, and back- reports its burning. no lightheadedness or dizziness. nitro x1 w/ positive effect.
see JUN re: chest pain and prn nitro
[2024-09-23] MEDS: SYMBICORT 80/4.5 MCG INHALER 2 PUFF INH ×2 (07:44→20:17)
[2024-09-23] MEDS: SPIRIVA RESPIMAT 2.5 MCG 2 PUFF INH (07:44)
[2024-09-23] MEDS: COREG 6.25 MG PO ×2 (07:53→19:48)
[2024-09-23] MEDS: FOLVITE 1 MG PO (07:53)
[2024-09-23] MEDS: ZETIA 10 MG PO (07:53)
[2024-09-23] MEDS: ASPIR LOW (ENTERIC COATED) 81 MG PO (07:53)
[2024-09-23] MEDS: PROTONIX 40 MG PO (07:53)
[2024-09-23] MEDS: ENTRESTO 49 MG/51 MG 1 TAB PO ×2 (07:55→21:06)
[2024-09-23] MEDS: THIAMINE INJECTION 200 MG IV ×2 (07:55→19:48)
--- NOTE | 2024-09-23 07:56 | W.PN.HOSP.TC ---
Today's Communication/Plan
-
- Cardiac catheterization and echo plan per cardio
- Patient was transferred to IVU
Assessment / Plan
Assessment / Plan
# Chest pain likely secondary to unstable angina
-History of coronary artery disease
-Continue heparin and nitro drip due to ongoing chest pain since admission
-Discontinue Xarelto (last dose taken 09/22)
-EKG not remarkable for ST segment changes-troponin levels negativeX4
-Cardiology on board planning Echo and cardiac catheterization
- Continue aspirin, statin and Entresto
- Lipid panel ordered
#HFpEF
- History of heart failure
# Essential Hypertension
-Continue Coreg and Norvasc
- Continue Lasix as needed
#Paroxysmal Atrial Fibrillation
-Hold Xarelto for now-while on IV heparin gtt
- Consider to restart following heparin drip discontinued
#Hyperlipidemia
- Continue statin
#Hx Tobacco Use
-Patient stopped smoking last week
#Alcohol Abuse
- Patient on MSAS protocol,
DVT PPx Heparin gtt
FULL CODE
Anticipated Discharge: 24 - 48 hours
Subjective/Interval History
-
Date of Service: September 23, 2024
Patient had several episodes of chest pain since admission and seen by cardiology in the morning. Patient was transferred to IVU.
Objective Data
-
Labs:
Laboratory Results
09/22/24 09/23/24 09/23/24
19:55 02:32 07:03
APTT 34.4 78.8 H Pending
Sodium 138 D
Potassium 4.2
Chloride 108 H
Carbon Dioxide 24
BUN 23 H
Creatinine 1.4 H
Glucose 90
Calcium 9.0
Vital Signs:
Vital Signs
Temp Pulse Resp BP Pulse Ox
97.7 F 75 16 123/88 97
09/23/24 02:38 09/23/24 07:52 09/23/24 07:52 09/23/24 07:41 09/23/24 07:52
I&O
09/22/24 09/23/24 09/24/24
06:59 06:59 06:59
Intake Total 720 / 720
Output Total 350 / 350
Balance 370 / 370
Review of Systems
-
History Source: Patient
All other systems: Not reviewed unless documented (See HPI)
Physical Exam
-
General: Well Developed, Well Nourished, No Apparent Distress and Comfortable
HEENT: Normocephalic and Atraumatic
Respiratory: Clear to Auscultation
Cardiac: Regular Rhythm and S1/S2
GI: Soft, Nontender, Nondistended and Normal Bowel Sounds
Musculoskeletal: No Clubbing, No Cyanosis and No Edema
Skin: Warm
Neuro: Awake, Alert, Oriented and AO x 3
Psych: Calm
[2024-09-23 08:00] LABS: APTT 127.7 Sec (23.4-35.0)
--- NOTE | 2024-09-23 08:51 | CON.CAR ---
Addendum entered and electronically signed by Ирина Sun MD 09/23/24 10:03:
I saw and examined the patient.
The Water Systems Engineer's note was reviewed and I agree with the note.
Comment: General: Well developed, well nourished in NAD.
Heart: Non displaced PMI, RRR, no murmurs, No S3, S4, no rubs.
Lungs: Clear to auscultation bilaterally, no wheeze, rhonchi, rubs bilaterally,
Extremities: No clubbing, cyanosis or edema bilaterally.
Neuro: Grossly nonfocal, awake, alert
He presents with chest discomfort starting on Friday relieved by sublingual nitroglycerin. He is taking his medications at home unfortunately he has increased alcohol use and now is smoking but discontinued smoking when he started feeling poorly.
He states currently during hospital stay he has needed multiple nitroglycerin for chest discomfort. He has even taken his own nitroglycerin at the bedside. I did discuss this with him and asked him not to take home medications.
EKG x 3 without acute abnormality or changes. No recurrence of A-fib clinically since 11/2023. Troponins continue to be negative X 4.
Transferred to interventional care unit.
Monitor telemetry.
Hold Xarelto. Transition to IV heparin. Continue antiplatelet and usual cardiac medications otherwise. Check lipids.
Given recurrent angina which is a possibly etiology of chest pain start IV nitroglycerin. He denies GI symptomatology although with increased alcohol use agree with treatment.
Check echocardiogram
Cardiac catheterization in a.m.
Original Note:
Consultation
Consultation Request
Date/Time Consultation Performed: 09/23/24
Requesting Provider: Dr. Kiley Nash
Performing Provider: Ericka Jay PA-C for Dr. Ирина Sun
Reason for Consultation: CP
Medical History
-
History of Present Illness:
Patient is a 68 yo M with PMH of mixed ischemic and nonischemic cardiomyopathy, recovered by most recent echo 11/2023, congestive heart failure, paroxysmal atrial fibrillation on chronic Xarelto therapy, CKD stage IIIb, CAD with RCA PCI in 2019, as
well as with history of EtOH use disorder. He reports Friday he noted chest burning with some sharp pain to his L shoulder, which he states is consistent with his prior anginal symptoms. He took a sublingual nitro with relief. He then states on
Friday he was walking around his house and had recurrence of symptoms and took nitro with relief. Then on Friday he was grocery shopping and states he had another episode and took nitro with relief. He states on Friday he worked and was okay
without issue. Then on Friday, yesterday he had several episodes which he felt like were stronger and worse than they had been in the past and required nitro with relief. He reports he started noting some pain to his neck/left arm. Since
admission to the hospital, he has had 6-7 episodes overnight with minimal exertion even things with getting out of bed or adjusting his sheets which have required nitro with relief. His troponins are serially negative. EKG without acute
abnormality. Cardiology consulted for evaluation. Of note he is listed as having his last stress test 09/2023. He states due to recent stress he started smoking again, however then stopped approximately 1 week ago, before his symptoms started. He
also has been drinking more, however cut back over the last week or so as well. Last dose of xarelto 09/22 PM.
PMH:
CAD, single vessel s/p 3.0 mm Xience to mid RCA 10/14/19
Paroxysmal Afib
Chronic Xarelto OAC
CKD 3b
Recovered mixed ischemic and nonischemic CM, EF previously 20%, then 50% 09/2017, then 60-65% by echo 02/28/21, then 50% by echo 10/09/23
Chronic mixed systolic/diastolic CHF
Frequent PVCs
h/o hypertension
h/o orthostasis and syncope
Alcohol use
GERD
Degenerative disc disease
Dyslipidemia
Carpal tunnel syndrome on right
Chronic back pain with history of spinal stenosis and prior back surgery
History of nephrolithiasis
Osteoarthritis degenerative disc disease
Past Medical History
Past Medical History: Other (in HPI)
Past Surgical History: Cardiac (RCA PCI 10/14/19), Cholecystectomy and Orthopedic
Social History
Tobacco: Smoker (started recently due to increased stress, stopped 1 week ago)
Alcohol: Daily (4 oz of liquor daily)
Drug: Marijuana
Personal:
Living: With Family
Family History
Family History: CAD, Cancer and Hypertension
Allergies / Home Medications
Allergy/AdvReac Type Severity Reaction Status Date / Time
amoxicillin Allergy Nausea / Verified 09/22/24 18:27
Vomiting
anise oil Allergy Rash/SOB Verified 09/22/24 18:27
doxycycline Allergy Anaphylaxis Verified 09/22/24 18:27
meperidine HCl (From Demerol) Allergy Nausea Verified 09/22/24 18:27
pollen extracts Allergy nasal Verified 09/22/24 18:27
congestion,
watery eyes
atorvastatin (From Lipitor) AdvReac Mild Unknown Verified 09/22/24 18:27
rosuvastatin (From Crestor) AdvReac Mild Unknown Verified 09/22/24 18:27
codeine (Codeine) AdvReac UPSET Verified 09/22/24 18:27
STOMACH
pentazocine (From Talwin) AdvReac Confusion, Verified 09/22/24 18:27
hallucinations
�Medication �Instructions �Recorded �Confirmed �Type
furosemide 40 mg tablet 20 mg PO PRN PRN edema, weight gain 10/01/17 09/22/24 History
carvedilol 12.5 mg tablet 6.25 mg PO BID Heart Failure 02/11/19 09/22/24 History
aspirin 81 mg tablet,delayed 81 mg PO DAILY Blood clot 10/14/19 09/22/24 History
release prevention/tx
multivitamin with folic acid 400 1 tab PO DAILY Supplement 10/14/19 09/22/24 History
mcg tablet (Tab-A-Flakito)
pantoprazole 40 mg tablet,delayed 40 mg PO DAILY Gastrointestinal 10/14/19 09/22/24 History
release issue
sildenafil 100 mg tablet (Viagra) 100 mg PO DAILYPRN PRN sexually 10/15/19 09/22/24 Rx
activity ##0
nitroglycerin 0.4 mg sublingual 0.4 mg sublingual [id number] PRN 02/13/21 09/22/24 History
tablet CHEST PAIN
acetaminophen 500 mg tablet 1,000 mg PO Q6HPRN PRN mild pain 07/03/22 09/22/24 History
amlodipine 2.5 mg tablet 2.5 mg PO HS Blood Pressure 07/03/22 09/22/24 History
ezetimibe 10 mg tablet (Zetia) 10 mg PO DAILY High Cholesterol 07/03/22 09/22/24 History
rivaroxaban 20 mg tablet (Xarelto) 20 mg PO QPM Blood Clot 07/03/22 09/22/24 History
Prevention/Tx
sacubitril 49 mg-valsartan 51 mg 1 tab PO BID Heart Failure 07/03/22 09/22/24 History
tablet (Entresto)
Medical Marijuana 1 dose PO HS mild pain/sleep 06/26/23 09/22/24 History
fluticasone fur. 100 mcg-umeclid 1 inh inhalation DAILY 09/22/24 09/22/24 History
62.5 mcg-vilant 25 mcg Lung/Breathing Issues
inhalat.powder (Trelegy Ellipta)
Review of Systems
-
History Source: Patient
All other systems: Negative unless noted
Physical Exam
Vital Signs
Temp Pulse Resp BP Pulse Ox
97.7 F 64 16 123/88 97
09/23/24 07:30 09/23/24 07:53 09/23/24 07:52 09/23/24 07:53 09/23/24 07:52
Lab Results
09/22/24 12:24
09/23/24 02:32
Troponin I < 0.012 ng/ml 09/23/24 02:32
Physical Exam
General: No Apparent Distress and Comfortable
HEENT: Normocephalic, Anicteric and Moist Mucous Membranes
Respiratory: Clear and Non Labored Respirations
Cardiac: S1/S2 and Regular Rhythm
GI: Soft, Non Tender, Non Distended and Normal Bowel Sounds
Musculoskeletal: No Clubbing, No Cyanosis and No Edema
Skin: Warm and Dry
Neuro: AO x 3
Impression / Plan
-
PCP: Nikki Subramanian CALKER
Cardiology: Dr. Ирина Sun
Impression:
Chest pain
Serially negative troponins
CAD, single vessel s/p 3.0 mm Xience to mid RCA 10/14/19
Paroxysmal Afib
Chronic Xarelto OAC
CKD 3b
Recovered mixed ischemic and nonischemic CM, EF previously 20%, then 50% 09/2017, then 60-65% by echo 02/28/21, then 55-60% by echo 11/2023
Chronic systolic/diastolic CHF
Frequent PVCs
h/o hypertension
h/o orthostasis and syncope
Degenerative disc disease
Dyslipidemia
Carpal tunnel syndrome on right
Chronic back pain with history of spinal stenosis and prior back surgery
History of nephrolithiasis
Osteoarthritis degenerative disc disease
Alcohol use disorder
Recent tobacco use, quit 1 week ago by patient report
Exercise nuclear stress test 10/13/23: Patient completed 6 minutes Marco Antonio protocol, 7 METS activity, 103% MPHR, myocardial perfusion imaging normal, EF 52%
Echo 10/24/17: shows EF 50% with no significant valvular disease
Echo 02/28/21: EF 60-65%, mild basal inferolateral and basal inferior hypokinesis, mild conc LVH, normal diastolic function, mild MR
Echo 10/09/23: EF 50%, basal inferior and basal inferoseptum are akinetic, moderate concentric LVH, normal RV size and function
ECHO 12/11/23: EF 55 to 60%, severe hypokinesis of basal inferior wall, little significant change compared to prior
ECHO 09/23/24: pending
Plan:
- Patient presents with symptoms concerning for angina, exertional chest discomfort relieved with sublingual nitro over the last 5 days. Patient reports progression in terms of strength and frequency yesterday resulting in him coming to the ER for
evaluation. Of note he has history of CAD with RCA PCI in 2019.
- Most recent stress test from 09/2023 with results as above
- Interestingly troponins remained serially undetectable, although patient has had 6-7 episodes of recurrent chest burning since admission, with relief with SL nitro
- SL nitro PRN ordered but he has been taking his own nitro in the room as he 'could not wait'. we have advised him to stop this. will start nitro gtt.
- EKG SR without acute ST abnormalities noted
- CXR without acute abnormality
- currently on IV heparin. last dose of xarelto patient reports was 09/22 PM but was hospitalized last evening, so will confirm with patient again. for cardiac cath in AM
- check urgent echo. last from 11/2023 as above
- continue asa, statin, coreg, norvasc, entresto.
- check lipids
- Cr stable at 1.4
- he reports he is on protonix as OP for GI prophylaxis due to chronic xarelto but has not had significant issues with GERD/ulcers/etc in the past
- transfer to IVU. d/w hospitalist via TT
Data Reviewed
-
EKG: Tracing Personally Visualized and interpreted
Radiology: Report Reviewed by me
Medical Tests (Nuc Med, Echo etc): Report Reviewed by me
Labs: Labs Reviewed by me
Old Records: Reviewed
--- NOTE | 2024-09-23 09:34 | CM ---
Patient seen at bedside on . Patient states he lives with in a 2 story home with no DME. Patient stated that he understands the cardiology is going to transfer him over to interventional unit. Patient stated KEEGAN Tsang is his PCP and
he use the [facility] in [place]. Patient states that he is doing well and does not anticipate any discharge planning needs.
Plan; home with no needs anticipated.
--- NOTE | 2024-09-23 09:40 | CM ---
Addendum entered by Pema Ruiz 09/23/24 09:49:
CM provided OBS/CARPENTER form and reviewed with patient. Patient on phone and unable to complete form at this time.
Original Note:
Patient seen at bedside in [facility]. Patient stated that he lives with his spouse in a spilt level home with seven steps to enter. He states he has seven steps to get to each level. Per patient prior to admission he was independent with ambulation,
IADL's and ADL's. He states he has a Nebulizer at home that he uses as needed. He states he has a prescription plan and uses [facility]. Medical work-up in progress. Patient stated that he plans for discharge home with no needs and per
cardiology he is for transfer to IVU. CM will continue to follow for discharge planning needs.
Plan; home with no needs.
[2024-09-23 10:17] LABS: Troponin I < 0.012 ng/ml
[2024-09-23 10:18] LABS: HDL Cholesterol 81 mg/dl; LDL Cholesterol, Calculated 45 mg/dl; Total Cholesterol 147 mg/dl (50-199); Triglyceride 107 mg/dl (10-149); Very Low Density Lipoprotein 21 mg/dl (0-30)
--- NOTE | 2024-09-23 11:12 | TRANSFER ---
Patient transferred to IVU for nitro gtt. Sent to echo, given report and patient to go to IVU post echo.
[2024-09-23] MEDS: NITROGLYCERIN PREMIX 250 IV (11:16)
--- NOTE | 2024-09-23 11:45 | PTCARENOTE ---
Pt received from room 411. C/o of intermittent chest pain after going to the bathroom. IV nitro started as ordered. No pain at this time. SR, rate in 60's to 70's.
[2024-09-23] MEDS: TYLENOL 650 MG PO ×2 (12:03→16:19)
[2024-09-23 15:28] LABS: APTT 126.1 Sec (23.4-35.0)
[2024-09-23 15:58] LABS: Cholesterol 152 mg/dl (50-199); HDL Cholesterol 72 mg/dl
[2024-09-23 16:08] LABS: LDL Cholesterol, Direct 62 mg/dl
[2024-09-23 22:12] LABS: APTT 75.7 Sec (23.4-35.0)
[2024-09-23] MEDS: ATIVAN 0.5 MG PO (22:27)
[2024-09-23] MEDS: TYLENOL 1000 MG PO (22:27)
[2024-09-23] MEDS: NORVASC 2.5 MG PO (22:27)
[2024-09-23] MEDS: HEPARIN 25000 UNITS/250 ML IV (22:27)
--- NOTE | 2024-09-23 23:28 | PTCARENOTE ---
assumed care of patient at the change of shift. AAOx3. denies any cp/sob. heparin gtt and nitro gtt infusing per protocol. nitro gtt adjusted- cp free- 10 mcg/min. SR on tele 60s. bp stable. denies any lightheadednes/dizziness. independent in the
room. new IV placed 20G. NPO at midnight for cath tomorrow.
patient states continued headache from nitro gtt. patient requested higher dose of tylenol and ativan. states feeling a little anxious about cath/cath results tomorrow. updated Anjali Huffman PLASTIC SURGERY TECHNICIAN. orders placed for tylenol and ativan, given, see
jun.
educated patient to inform RN with any changes overnight. call cancino within reach. makes needs known.
[2024-09-24] VITALS (16 sets, daily range): BP systolic 99–172; BP diastolic 73–102; BMI 29.4
[2024-09-24] MEDS: TYLENOL 650 MG PO (03:56)
[2024-09-24 04:18] LABS: Hematocrit 38.4 % (39.0-52.0); Hemoglobin 12.8 g/dL (13.0-18.0); Mean Corp Hgb Conc. 33.3 g/dL (33.0-37.0); Mean Corpuscular Hgb 29.9 pg (27.0-31.0); Mean Corpuscular Volume 89.7 fL (80.0-94.0); Mean Platelet Volume 9.7 fL (7.4-10.4); Platelet Count 291 10^3/uL (130-400); Red Blood Cell Count 4.28 10^6/uL (4.70-6.10); Red Cell Dist. Width 15.4 % (11.5-14.5); White Blood Cell Count 8.6 10^3/uL (4.8-10.8)
[2024-09-24 04:26] LABS: APTT 110.1 Sec (23.4-35.0)
--- NOTE | 2024-09-24 04:55 | PTCARENOTE ---
NPO since midnight. no chest pain overnight but complains of continued dull headache. nitro gtt titrated to 5 mcg/min. tylenol given for the headache-see jun.
[2024-09-24 05:09] LABS: Blood Urea Nitrogen 25 mg/dl (9-20); Carbon Dioxide 23 mmol/L (22-30); Chloride 109 mmol/L (98-107); Estimated Creatinine Clearance 52 ml/min; Glucose 108 mg/dl (70-99); Potassium 4.5 mmol/L (3.5-5.1); Sodium 137 mmol/L (135-145); eGFR 50.71
--- NOTE | 2024-09-24 07:30 | W.PN.HOSP.TC ---
Today's Communication/Plan
-
- Cardiac catheterization
Assessment / Plan
Assessment / Plan
# Chest pain likely due to unstable angina
-History of coronary artery disease
-Continue heparin drip
-Discontinued nitro drip
-Patient will have cardiac catheterization and treatment will be adjusted based on the findings per cardiology
-Discontinue Xarelto (last dose taken 09/22)
-EKG not remarkable for ST segment changes-troponin levels negativeX4
-Cardiology on board
Continue aspirin, statin and Entresto
-Lipid panel ordered: LDL 45
#HFpEF
- History of heart failure with preserved ejection
- Echo 09/23/2024: Normal left ventricular wall thickness. Normal left ventricular chamber size. Low- Normal left ventricular systolic function. Left ventricular ejection fraction is 52% by Kessler's method. Basal inferior wall, basal and mid
inferolateral tolentino, and the basal inferoseptum appear hypokinetic. Normal diastolic function.
# Chronic kidney disease
-Follow BMP closely given a plan for cardiac catheterization
-Creatinine is likely at baseline
# Essential Hypertension
-Continue Coreg and Norvasc
-Continue Lasix as needed
#Paroxysmal Atrial Fibrillation
-Hold Xarelto for now-while on IV heparin gtt
- Consider to restart following heparin drip discontinued
#Hyperlipidemia
- Continue statin
#Hx Tobacco Use
-Patient stopped smoking last week
#Alcohol Abuse
- Patient on MSAS protocol,
DVT PPx Heparin gtt
FULL CODE
Anticipated Discharge: 24 - 48 hours
Subjective/Interval History
-
Date of Service: September 24, 2024
No chest pain since overnight. Cardiac catheterization is pending for this afternoon
Objective Data
-
Labs:
Laboratory Results
09/23/24 09/23/24 09/23/24
21:03 21:52 21:56
WBC
Hgb
Hct
Plt Count
APTT Cancelled 75.7 H Cancelled
Sodium
Potassium
Chloride
Carbon Dioxide
BUN
Creatinine
Glucose
Calcium
09/24/24
03:58
WBC 8.6
Hgb 12.8 L
Hct 38.4 L
Plt Count 291
APTT 110.1 H
Sodium 137
Potassium 4.5
Chloride 109 H
Carbon Dioxide 23
BUN 25 H
Creatinine 1.5 H
Glucose 108 H
Calcium 9.0
Vital Signs:
Vital Signs
Temp Pulse Resp BP Pulse Ox
97.5 F 74 18 116/89 99
09/24/24 07:19 09/24/24 03:15 09/24/24 07:19 09/24/24 03:15 09/24/24 07:19
I&O
09/23/24 09/24/24 09/25/24
06:59 06:59 06:59
Intake Total 720 / 720 450 / 450
Output Total 350 / 350 600 / 600
Balance 370 / 370 -150 / -150
Review of Systems
-
History Source: Patient
All other systems: Reviewed and negative
Physical Exam
-
General: Well Developed, Well Nourished, No Apparent Distress, Comfortable and Other (headache)
HEENT: Normocephalic and Atraumatic
Respiratory: Clear to Auscultation
Cardiac: Regular Rhythm and S1/S2
GI: Soft, Nontender and Nondistended
Musculoskeletal: No Clubbing, No Cyanosis and No Edema
Skin: Warm and IV Access / Catheter Site
Neuro: Awake, Alert, Oriented and AO x 3
Psych: Calm
[2024-09-24] MEDS: ZETIA 10 MG PO (08:57)
[2024-09-24] MEDS: TYLENOL 1000 MG PO (08:57)
[2024-09-24] MEDS: ASPIR LOW (ENTERIC COATED) 81 MG PO (08:57)
[2024-09-24] MEDS: ENTRESTO 49 MG/51 MG 1 TAB PO ×2 (08:57→19:34)
[2024-09-24] MEDS: PROTONIX 40 MG PO (08:57)
[2024-09-24] MEDS: FOLVITE 1 MG PO (08:57)
[2024-09-24] MEDS: COREG 6.25 MG PO ×2 (08:58→19:34)
[2024-09-24] MEDS: THIAMINE INJECTION 200 MG IV ×2 (08:58→19:34)
[2024-09-24] MEDS: SPIRIVA RESPIMAT 2.5 MCG 2 PUFF INH (09:01)
[2024-09-24] MEDS: SYMBICORT 80/4.5 MCG INHALER 2 PUFF INH ×2 (09:01→19:15)
--- NOTE | 2024-09-24 10:14 | PTCARENOTE ---
pt off unit for ccl. report given.
[2024-09-24 11:24] LABS: ACT-LR - POC 260 Seconds (116-155)
[2024-09-24 11:36] LABS: ACT-LR - POC 363 Seconds (116-155)
[2024-09-24 12:15] LABS: ACT-LR - POC 351 Seconds (116-155)
--- NOTE | 2024-09-24 12:24 | CONSULT.CT ---
Addendum entered and electronically signed by Ruddy Vale PA-C 09/27/24 13:27:
Procedure Type:�Isolated CABG
Perioperative Outcome Estimate %
Operative Mortality 1.09%
Morbidity & Mortality 7.12%
Stroke 0.842%
Renal Failure 1.82%
Reoperation 2.38%
Prolonged Ventilation 3.72%
Deep Sternal Wound Infection 0.207%
Long Hospital Stay (>14 days) 3.85%
Short Hospital Stay (<6 days)* 43.4%
Clinical Summary
Planned Surgery: Isolated CABG, Urgent, First cardiovascular surgery
Demographics: 63 year old, White, male, 98.1kg, 182.88cm, BMI: 29.3 kg/m�
Lab Values: Creatinine: 1.4 mg/dL, Hematocrit: 39.5%, WBC Count: 6.9 10�/�L, Platelet Count: 091181 cells/�L
Substance Abuse: Current smoker, Alcohol use: 2-7 drinks/week
Risk Factors / Comorbidities: Hypertension
Pulmonary RF: Unknown CLD
Cardiac Status: Acute and chronic heart failure, NYHA Class III, Ejection Fraction = 52%
Coronary Artery Disease: 3 vessels diseased, Proximal LAD Stenosis >=70%, Unstable Angina, IN: Unknown
Valve Disease: Trivial/Trace AR, Moderate MR
Arrhythmia: Recent A-fib, Paroxysmal
Prev. Cardiac Interv: Previous PCI: Not during this episode of care
Original Note:
Consultation
-
Date/Time Consultation Requested: 09/24/24 1225
Date/Time Consultation Performed: 09/24/24 1219
Requesting Provider: Kristin MA
Performing Provider: Anyi Jefferson MD
Reason for Consultation: CABG eval
Patient History
Physicians
Family Physician: Nikki Subramanian UX DESIGN LEAD
Outpatient Screen Roller: Dr. Ирина Sun
Inpatient Screen Roller: Corinne
History of Present Illness
68-year-old male with past medical history significant for cardiomyopathy, congestive heart failure, PAF on Xarelto, CKD stage IIIb, CAD with stent to RCA in 2019 who chest burning/pain that radiated to his left shoulder startomg since friday. He
states that sublingual nitro was able to provide some relief. The chest pain was on and off every day until Friday where the episodes became stronger and worsen in the past which prompted him to come to [facility]. Since admission to the hospital
patient has been having ongoing episodes of chest pain which have been relieved with nitroglycerin however troponins have been serially negative and EKG has not shown an acute abnormality. Left heart cath today revealed multivessel disease and CT
surgery was consulted for surgical evaluation.
Last dose of Xarelto: 10/23
Past Medical History
Past Medical History: Other
CAD, single vessel s/p 3.0 mm Xience to mid RCA 10/14/19
Paroxysmal Afib
Chronic Xarelto OAC
CKD 3b
Recovered mixed ischemic and nonischemic CM, EF previously 20%, then 50% 09/2017, then 60-65% by echo 02/28/21, then 50% by echo 10/09/23
Chronic mixed systolic/diastolic CHF
Frequent PVCs
hypertension
orthostasis and syncope
Alcohol use
GERD
Degenerative disc disease
Dyslipidemia
Carpal tunnel syndrome on right
Chronic back pain with history of spinal stenosis and prior back surgery
History of nephrolithiasis
Osteoarthritis degenerative disc disease
Past Surgical History
Past Surgical History: Other
Cardiac (RCA PCI 10/14/19), Cholecystectomy and Orthopedic
Family History
Family Medical History: CAD, Cancer and Hypertension
Social History
Alcohol: Daily (Liquor daily)
Drug: Marijuana (medical/ smokes it)
Tobacco: Smoker (stopped one week ago)
Personal:
Living: With Family
Employment: Retired
Allergies
Allergy/AdvReac Type Severity Reaction Status Date / Time
amoxicillin Allergy Nausea / Verified 09/22/24 18:27
Vomiting
anise oil Allergy Rash/SOB Verified 09/22/24 18:27
doxycycline Allergy Anaphylaxis Verified 09/22/24 18:27
meperidine HCl (From Demerol) Allergy Nausea Verified 09/22/24 18:27
pollen extracts Allergy nasal Verified 09/22/24 18:27
congestion,
watery eyes
atorvastatin (From Lipitor) AdvReac Mild Unknown Verified 09/22/24 18:27
rosuvastatin (From Crestor) AdvReac Mild Unknown Verified 09/22/24 18:27
codeine (Codeine) AdvReac UPSET Verified 09/22/24 18:27
STOMACH
pentazocine (From Talwin) AdvReac Confusion, Verified 09/22/24 18:27
hallucinations
Home Medications
�Medication �Instructions �Recorded �Confirmed �Type
furosemide 40 mg tablet 20 mg PO PRN PRN edema, weight gain 10/01/17 09/22/24 History
carvedilol 12.5 mg tablet 6.25 mg PO BID Heart Failure 02/11/19 09/22/24 History
aspirin 81 mg tablet,delayed 81 mg PO DAILY Blood clot 10/14/19 09/22/24 History
release prevention/tx
multivitamin with folic acid 400 1 tab PO DAILY Supplement 10/14/19 09/22/24 History
mcg tablet (Tab-A-Flakito)
pantoprazole 40 mg tablet,delayed 40 mg PO DAILY Gastrointestinal 10/14/19 09/22/24 History
release issue
sildenafil 100 mg tablet (Viagra) 100 mg PO DAILYPRN PRN sexually 10/15/19 09/22/24 Rx
activity ##0
nitroglycerin 0.4 mg sublingual 0.4 mg sublingual [id number] PRN 02/13/21 09/22/24 History
tablet CHEST PAIN
acetaminophen 500 mg tablet 1,000 mg PO Q6HPRN PRN mild pain 07/03/22 09/22/24 History
amlodipine 2.5 mg tablet 2.5 mg PO HS Blood Pressure 07/03/22 09/22/24 History
ezetimibe 10 mg tablet (Zetia) 10 mg PO DAILY High Cholesterol 07/03/22 09/22/24 History
rivaroxaban 20 mg tablet (Xarelto) 20 mg PO QPM Blood Clot 07/03/22 09/22/24 History
Prevention/Tx
sacubitril 49 mg-valsartan 51 mg 1 tab PO BID Heart Failure 07/03/22 09/22/24 History
tablet (Entresto)
Medical Marijuana 1 dose PO HS mild pain/sleep 06/26/23 09/22/24 History
fluticasone fur. 100 mcg-umeclid 1 inh inhalation DAILY 09/22/24 09/22/24 History
62.5 mcg-vilant 25 mcg Lung/Breathing Issues
inhalat.powder (Trelegy Ellipta)
Review of Systems
-
History Source: Patient and Family
General: Reports Fatigue
HEENT: Reports No Symptoms
Respiratory: Reports No Symptoms
Cardiac: Reports Chest Pain
Abdomen/GI: Reports No Symptoms
: Reports No Symptoms
Musculoskeletal: Reports No Symptoms
Skin: Reports No Symptoms
Neurological: Reports No Symptoms
Vascular: Reports No Symptoms
Physical Exam
Vital Signs
Temp 97.5 F 09/24/24 07:19
Temp route: Oral 09/24/24 07:19
Pulse 58 09/24/24 09:45
Rhythm: Sinus bradycardia 09/24/24 07:53
With- Normal sinus rhythm 09/24/24 07:53
Resp Rate 14 09/24/24 09:05
Blood pressure 111/74 09/24/24 08:58
Blood pressure extremity used: Right upper arm 09/24/24 07:19
Position: Lying 09/24/24 07:19
MAP (cuff-Gaurav Monitor) 87 09/24/24 07:17
SaO2 96 09/24/24 07:53
Oxygen Mode of Delivery Room air 09/24/24 09:05
Can the patient verbally communicate their pain? Yes 09/24/24 09:57
Pain scale ratin 09/24/24 09:57
Actual Weight 98.1 kg 09/24/24 03:55
Body Mass Index (BMI) 29.4 09/24/24 03:55
Labs
09/24/24 03:58
09/24/24 03:58
APTT 110.1 Sec (23.4-35.0) H 09/24/24 03:58
Troponin I < 0.012 ng/ml 09/23/24 09:40
Exam
General: Well Developed and Well Nourished
HEENT: Normocephalic
Respiratory: Clear
Cardiac: S1/S2 and Regular Rhythm
GI: Soft and Non Tender
Rectal: Deferred by Provider
Skin: Warm and Dry
Neuro: AO x 3 and No Motor Deficits
Extremities: Pulses (+1) and Other (varicose veins present)
Lymph: No Lymphadenopathy
Psych: Calm
Assessment / Plan
-
68-year-old male with past medical history listed above presented to [facility] with complaints of ongoing chest pain. Left heart cath revealed multivessel disease and CT surgery was consulted for surgical evaluation.
#CAD
#Cardiomyopathy
-Patient's case will be discussed with attending physician. Further details regarding surgical timing intervention will be determined after attending physicians full evaluation
-Routine preoperative cardiothoracic surgery orders will be initiated.
-STS risk stratification score will be calculated after preoperative testing is complete
-Continue nitroglycerin and heparin gtt per cardiology
- last dose of Xarelto on 09/22
- Last echo showed an EF of 52% mild MR and trace AR Basal inferior wall, basal and mid inferolateral tolentino, and the basal inferoseptum appear hypokinetic. Normal diastolic function.
- Entresto to be held for 48hrs once surgical date is determined.
- f/u with CTA on friday
#CKD stage 3a
- monitor CR daily
- Denies having education professional outpatient
[2024-09-24] MEDS: DILAUDID 0.25 MG IV (13:23)
--- NOTE | 2024-09-24 15:50 | CM ---
Reviewed chart. Met with Mr. Hou to review discharge plans. He states he may need heart surgery. Prior to admission he resides with his spouse in a spilt level home with seven steps to enter. He has seven steps to get to bedroom/full
bathroom. Prior to admission he was independent with ambualtion and adls. He has a nebulizer at home. He has a prescription plan and uses [facility]. Medical work-up in progress. The discharge plan is to return home with his spouse when
medically stable.
--- NOTE | 2024-09-24 16:44 | W.PN.UPDATE ---
Addendum entered and electronically signed by Radha Viramontes MD 09/24/24 19:42:
Extensive discussion was had regarding the anatomy and findings of the heart catheterization with patient and at bedside reviewing prior cath from 2019 as well as heart catheterizations from today. We discussed the mid RCA hazy 70 to 80%
stenosis at the proximal edge of the old stent which is likely culprit of presenting unstable angina and is a PCI target. I expressed a lot of concern about the proximal LAD and the difficulty laying out the anatomy well not being able to
confidently rule out a large branch coming off that area which would be at risk for being jailed and possibly not being rescued given it is not obvious where this takes off and therefore consideration for possible coronary artery bypass grafting
with bypasses to LAD, possibly ramus intermedius/high diagonal branch and RCA however patient's expressed a lot of concern from her own experience with prior CABG and is extremely reluctant to have her go through coronary artery bypass
grafting and patient himself would prefer less invasive options if any. We discussed that in the setting it may be reasonable to obtain a coronary CT angiogram on Friday, September 28, 2023 to allow his kidney function a chance to recover before another
dye load to assess anatomy specifically on the left side to see if the proximal LAD could be safely intervened using percutaneous therapies such as a stent. Depending on the findings we would discuss treatment options further. We did discuss
importance of medication compliance and dual antiplatelet therapy if we were to pursue PCI. Patient and at bedside expressed understanding about everything.
All of their questions were answered in significant detail to the best of my ability.
Radha Viramontes MD, [facility], [facility]
Total time spent: 35 minutes
Original Note:
Update Note
Progress Note Update
Reviewed results of cardiac catheterization with interventional cardiology. By cath, unable to lay out anatomy of surrounding LAD, concern for diag branch which would be jailed with stent vs ramus. would favor obtaining inpatient coronary CTA on
Wednesday 09/27 to further evaluate anatomy. then can discuss options regarding stenting vs CABG. of note, patient favors PCI. d/w CT department, and should be able to complete study on Friday as planned. order placed.
--- NOTE | 2024-09-24 18:01 | PTCARENOTE ---
pt right radial cdi, slight ecchymosis. pt c/o pain in lower back, wrist and headache notified Vani Andres, gave Dilaudid as ordered. pt found relief. pt resting in bed, visiting with . pt educated on plan of care and pt verbalized
understanding. call cancino within reach.
[2024-09-24] MEDS: HEPARIN 25000 UNITS/250 ML IV (18:40)
--- NOTE | 2024-09-24 19:43 | ITS.CL.CATH ---
Human Resources Recruiter - Catheterization
Cardiac Catheterization
Procedure Report:
LEFT HEART CATHETERIZATION
Date of Procedure: September 24, 2024
Referring: Ирина Sun
PROCEDURES:
1. Left heart catheterization, coronary angiogram.
2. Moderate sedation.
3. Intravascular ultrasound of LAD
4. Intravascular ultrasound of diagonal branch
INDICATION: Concern for unstable angina
ACCESS: Right radial artery, 6Fr. sheath, under US guidance.
HEMODYNAMICS : (mmHg)
AO (s/d) : 129/85
LVEDP : 13
No significant gradient across the aortic valve to suggest aortic stenosis.
CORONARY FINDINGS
Dominance: Right
Left Main Trunk (LMT): The left coronary anatomy was extremely challenging to lay out despite multiple views and angles including CP angles. There appears to be a cloacal left main.
Left Anterior Descending Artery (LAD): Large caliber vessel that gives off 1 versus 2 major diagonal branches as it courses along the anterior inter-ventricular groove before wrapping around the cardiac apex. There is a smooth tubular 80% proximal
LAD stenosis in some views appearing just proximal to the takeoff of one of the major diagonal branches however in other views there is concern about another branch vessel either a high diagonal or ramus intermedius branch overlapping this with
concern for possible jailing of the branch vessel if PCI were performed. Despite intravascular ultrasound of proximal LAD and the diagonal branch we could not define the anatomy well.
Left Circumflex Artery (LCx): Large caliber vessel that gives off 1 major obtuse marginal (OM) branch as it courses along the atrio-ventricular (AV) groove. The LCx and its branches has diffuse mild atherosclerotic plaque.
Right Coronary Artery (RCA): Large caliber dominant vessel that gives rise to the posterior descending artery (RPDA) and postero-lateral ventricular (RPLV) branches distally. Proximal portion of the previously placed mid RCA stent has hazy 70 to
80% in-stent restenosis which is likely culprit of presenting unstable angina. This is a PCI target.
Intravascular ultrasound: Intravascular ultrasound was performed over the LAD as well as the diagonal branch separately. We used a 6 [place] JL4 guide catheter and additional heparin was given to maintain therapeutic ACT throughout the case. A 190
cm 0.014 run-through coronary wire was successfully advanced into the LAD and intravascular ultrasound was performed using a [employer] [place] eye IVUS catheter which showed a diagonal branch coming off distal to the area of 80% stenosis with no clear
other branches in this region. We then advanced a 190 cm 0.014 BMW wire into the diagonal branch which showed clear takeoff from the LAD distal to the 80% plaque.
SEDATION: 27 minutes of procedural sedation was utilized. IV Midazolam and IV Fentanyl were administered. An independent medical technologist blood bank was present to assist with and help manage the patient's level of consciousness and physiologic status.
Closure Device: There were no immediate intra-procedural complications. The sheath was pulled in the labview programmer and a vascular-band applied to the right wrist for radial artery hemostasis using the patent hemostasis technique.
CONCLUSIONS
1. Proximal portion of the previously placed mid RCA stent has hazy 70 to 80% in-stent restenosis which is likely culprit of presenting unstable angina. This is a PCI target.
2. There is a smooth tubular 80% proximal LAD stenosis in some views appearing just proximal to the takeoff of one of the major diagonal branches however in other views there is concern about another branch vessel either a high diagonal or ramus
intermedius branch overlapping this with concern for possible jailing of the branch vessel if PCI were performed. Despite intravascular ultrasound of proximal LAD and the diagonal branch we could not define the anatomy well.
3. Normal LVEDP at 13 mmHg.
RECOMMENDATIONS
1. Wean radial band per protocol. Monitor right hand perfusion and for bleeding from the radial site following removal of the vascular-band following trans-radial access.
2. Continue aggressive medical therapy and risk factor modification for secondary CAD prevention.
3. Plan for coronary CT angiogram after end sensitive discussion with patient and his and their hesitancy to move forward with coronary artery bypass grafting to define anatomy on the left side better to assess feasibility of PCI of proximal
LAD in addition to mid RCA.
4. Continued management of acute coronary syndrome given unstable angina. Patient is currently chest pain-free.
5. Eventual referral for outpatient cardiac rehab.
Copy to: Ирина Sun
Radha Viramontes MD, FACC, [facility]
[2024-09-24] MEDS: ULTRAM 25 MG PO (20:31)
[2024-09-24] MEDS: NORVASC 2.5 MG PO (22:21)
[2024-09-24] MEDS: ATIVAN 0.5 MG PO (22:46)
--- NOTE | 2024-09-25 00:05 | PTCARENOTE ---
Pt rec'd at change of shift in recliner chair. back to bed at 2100. IV heparin and Ntg gtt infusing via left arm. Pt with one short brief episode of burning in left ant chest after going to bathroom. resolved with rest. Pt given Ultram for c/o H/A
and lower back pain with good relief. Pt also given Ativan at HS for c/o feeling unable to sit still. Pt stated ' I don't know how I'm going to sit around before surgery'.
[2024-09-25 02:24] VITALS: BP 121/79
[2024-09-25 02:43] VITALS: BMI 29.3
[2024-09-25 03:13] LABS: ALT (SGPT) 13 U/L (0-50); AST (SGOT) 20 U/L (17-59); Albumin 3.8 g/dl (3.5-5.0); Alkaline Phosphatase 64 U/L (38-126); Blood Urea Nitrogen 20 mg/dl (9-20); Calcium 8.8 mg/dl (8.4-10.2); Carbon Dioxide 24 mmol/L (22-30); Chloride 109 mmol/L (98-107); Direct Bilirubin 0.1 mg/dl (0.0-0.4); Estimated Creatinine Clearance 52 ml/min; Glucose 117 mg/dl (70-99); Potassium 4.3 mmol/L (3.5-5.1); Sodium 138 mmol/L (135-145); Total Bilirubin 0.4 mg/dl (0.2-1.3); Total Protein 6.2 g/dl (6.3-8.2); eGFR 50.71
[2024-09-25 03:24] LABS: INR 0.97; PT 13.2 Sec (11.4-14.6)
[2024-09-25 03:26] LABS: APTT 84.6 Sec (23.4-35.0)
[2024-09-25 03:29] LABS: Hemoglobin 13.2 g/dL (13.0-18.0); Mean Corp Hgb Conc. 33.8 g/dL (33.0-37.0); Mean Corpuscular Hgb 30.6 pg (27.0-31.0); Mean Corpuscular Volume 90.3 fL (80.0-94.0); Mean Platelet Volume 10.2 fL (7.4-10.4); Platelet Count 295 10^3/uL (130-400); Red Blood Cell Count 4.32 10^6/uL (4.70-6.10); Red Cell Dist. Width 15.2 % (11.5-14.5); White Blood Cell Count 8.3 10^3/uL (4.8-10.8)
--- NOTE | 2024-09-25 03:31 | PTCARENOTE ---
No further chest burning during the night. Pt reports resting well following Ativan at HS
[2024-09-25] MEDS: ULTRAM 25 MG PO ×2 (04:14→17:58)
[2024-09-25 08:46] VITALS: BP 133/95
--- NOTE | 2024-09-25 08:50 | W.PN.HOSP.TC ---
Today's Communication/Plan
-
heparin/nitro per cardio
continue on tylenol/tramadol prn for headache
f/u renal function
Assessment / Plan
Assessment / Plan
1. Chest pain/unstable angina - occurring at rest requiring frequent nitro up to point where patient will using his own nitro in the hospital as well. Troponin has been negative. EKG did not show any significant ST segment changes. Cardiology
evaluated and echocardiogram ordered which showed preserved ejection fraction. LHC showed possible instent stenosis of RCA and LAD stenosis which is difficult to intervene upon due to concern of jailing branch artery. Cardio recommended CABG
evaluation but patient/spouse was hesitant initially due to spouses' post CABG experience. Plan to get for Cardiac CTA to better delineate anatomy. Patient agreeable to CABG at this stage
Continues to have chest pain, maintain on nitro drip/heparin drip - further adjustment deferred to cardiology,
2. CKD stage IIIA -creatinine close to baseline. Avoid nephrotoxic medication. With need of heart catheterization monitor for [place] postprocedure
3. Chronic diastolic congestive heart failure -no signs of volume overload. Diuretics per cardiology
4. Headache - with need of nitro. maintain on tyelnol/tramadol
5. Essential HTN - maintain on coreg/entersto
6. Paroxysmal atrial fibrillation - xarelto on hold, continue heparin drip
7. Hyperlipidemia - Continue statin
8. Hx Tobacco Use -Patient stopped smoking last week
9. Alcohol Abuse- Patient on MSAS protocol,
DVT PPx Heparin gtt
FULL CODE
Total time spent : 52 mins
Anticipated Discharge: > 48 hours
Subjective/Interval History
-
Date of Service: September 25, 2024
continues to have chest pain
no abd pain/nausea/vomiting
Objective Data
-
Labs:
Laboratory Results
09/25/24 09/25/24 09/25/24
02:33 02:33 09:30
WBC 8.3
Hgb 13.2
Hct 39.0
Plt Count 295
PT 13.2
INR 0.97
APTT 84.6 H Pending Pending
Sodium 138
Potassium 4.3
Chloride 109 H
Carbon Dioxide 24
BUN 20
Creatinine 1.5 H
Glucose 117 H
Calcium 8.8
Total Bilirubin 0.4
AST 20
ALT 13
Alkaline Phosphatase 64
Vital Signs:
Vital Signs
Temp Pulse Resp BP Pulse Ox
97.8 F 69 20 121/79 97
09/25/24 02:24 09/25/24 05:45 09/25/24 02:24 09/25/24 02:24 09/25/24 02:24
I&O
09/24/24 09/25/24 09/26/24
06:59 06:59 06:59
Intake Total 450 / 450 414 / 414
Output Total 600 / 600 1200 / 1200
Balance -150 / -150 -786 / -786
Review of Systems
-
Respiratory: Reports No Symptoms
Cardiac: Reports Chest Pain
Abdomen/GI: Reports No Symptoms
Physical Exam
-
General: No Apparent Distress and Comfortable
HEENT: Negative Oxygen
Musculoskeletal: No Edema
Neuro: Awake, Alert, Oriented, No Motor Deficits and Nonfocal/Grossly Intact
Psych: Calm
[2024-09-25] MEDS: ZETIA 10 MG PO (08:58)
[2024-09-25] MEDS: PROTONIX 40 MG PO (08:58)
[2024-09-25] MEDS: FOLVITE 1 MG PO (08:58)
[2024-09-25] MEDS: ENTRESTO 49 MG/51 MG 1 TAB PO ×2 (08:58→20:18)
[2024-09-25] MEDS: ASPIR LOW (ENTERIC COATED) 81 MG PO (08:58)
[2024-09-25] MEDS: COREG 6.25 MG PO ×2 (08:58→20:18)
[2024-09-25] MEDS: THIAMINE INJECTION 200 MG IV (08:58)
[2024-09-25] MEDS: SPIRIVA RESPIMAT 2.5 MCG 2 PUFF INH (09:12)
[2024-09-25] MEDS: SYMBICORT 80/4.5 MCG INHALER 2 PUFF INH ×2 (09:12→18:39)
[2024-09-25 09:49] LABS: Glycohemoglobin (HgbA1c) 5.5 % (4.0-5.6)
--- NOTE | 2024-09-25 10:10 | W.PN.CARDCBS ---
Today's Communication / Plan
-
Await coronary CTA
Await preprocedure testing
Continue heparin and nitrates
Start low-dose pravastatin hopefully he will tolerate
Impression / Plan
-
PCP: Nikki Subramanian CREDIT DIRECTOR
Cardiology: Dr. Ирина Sun
Impression:
Angina with progressive coronary artery disease by catheterization 09/23/2024
mid RCA hazy 70 to 80% at the proximal edge of the prior stent. Proximal LAD with significant disease 80% with concern regarding another branch vessel either high diagonal or ramus overlapping this area
s/p 3.0 mm Xience to mid RCA 10/14/19
Hyperlipidemia with statin intolerance to Lipitor and Crestor currently on Zetia. LDL 62
Tobacco use recently
Paroxysmal Afib
CKD 3b
Improved mixed ischemic and nonischemic CM, EF previously 20%, then 50% 09/2017, then 60-65% by echo 02/28/21, Echo 09/23/24 52%
Frequent PVCs
Hypertension
h/o orthostasis and syncope
Degenerative disc disease
Chronic back pain with history of spinal stenosis and prior back surgery
Alcohol use disorder
Exercise nuclear stress test 10/13/23: Patient completed 6 minutes Marco Antonio protocol, 7 METS activity, 103% MPHR, myocardial perfusion imaging normal, EF 52%
Echo 10/24/17: shows EF 50% with no significant valvular disease
Echo 02/28/21: EF 60-65%, mild basal inferolateral and basal inferior hypokinesis, mild conc LVH, normal diastolic function, mild MR
Echo 10/09/23: EF 50%, basal inferior and basal inferoseptum are akinetic, moderate concentric LVH, normal RV size and function
ECHO 12/11/23: EF 55 to 60%, severe hypokinesis of basal inferior wall, little significant change compared to prior
ECHO 09/23/24: pending
Plan:
Progressive coronary artery disease with angina. Given progressive coronary disease and difficult anatomy the patient's anatomy will be further assessed by coronary CTA. Patient would prefer percutaneous approach if similar result would be
achieved compared to CABG. A long and detailed discussion today patient would be agreeable to CABG if anatomy does not allow for significant revascularization by percutaneous route.
mid RCA hazy 70 to 80% at the proximal edge of the prior stent. Proximal LAD with significant disease 80% with concern regarding another branch vessel either high diagonal or ramus overlapping this area
s/p 3.0 mm Xience to mid RCA 10/14/19
[address] surgery has been consulted
Await coronary CTA to better define anatomy and vessel that has risk of being jailed with percutaneous intervention
Preprocedure testing ordered
Continue heparin and nitrates for angina. Mild headache noted but tolerable.
Risk factor modification.
EKG performed today independently reviewed by me and stable.
Hyperlipidemia with statin intolerance to Lipitor and Crestor currently on Zetia. LDL 62
Agreeable to try pravastatin low-dose which will be ordered
As an outpatient check LP(a)
Tobacco use recently
Discontinue tobacco and alcohol use
Paroxysmal Afib
Chronic Xarelto OAC currently on heparin. Continue.
Sinus rhythm noted. Telemetry independently reviewed by me.
CKD 3b
Stable continue to follow
Improved mixed ischemic and nonischemic CM, EF previously 20%, then 50% 09/2017, then 60-65% by echo 02/28/21, Echo 09/23/24 52%
Continue guideline directed medical therapy as tolerates
Frequent PVCs
Telemetry stable
Hypertension
Blood pressure acceptable
h/o orthostasis and syncope
Degenerative disc disease
Chronic back pain with history of spinal stenosis and prior back surgery
Alcohol use disorder
Progress Note - Physician Scientist
Subjective
Date of Service: September 25, 2024
Denies chest pain and palpitations but has a mild headache.
Objective
Labs:
09/25/24 02:33
09/25/24 02:33
Labs
Hgb 13.2 g/dL (13.0-18.0) 09/25/24 02:33
Hct 39.0 % (39.0-52.0) 09/25/24 02:33
Plt Count 295 10^3/uL (130-400) 09/25/24 02:33
PT 13.2 Sec (11.4-14.6) 09/25/24 02:33
INR 0.97 09/25/24 02:33
APTT 84.6 Sec (23.4-35.0) H 09/25/24 02:33
Sodium 138 mmol/L (135-145) 09/25/24 02:33
Potassium 4.3 mmol/L (3.5-5.1) 09/25/24 02:33
BUN 20 mg/dl (9-20) 09/25/24 02:33
Creatinine 1.5 mg/dL (0.7-1.3) H 09/25/24 02:33
Glucose 117 mg/dl (70-99) H 09/25/24 02:33
Troponins
09/22/24 09/22/24 09/22/24
12:24 15:34 21:44
Troponin I < 0.012 < 0.012 < 0.012
09/23/24 09/23/24
02:32 09:40
Troponin I < 0.012 < 0.012
Vital Signs and I&O:
Vital Signs
Temp Pulse Resp BP Pulse Ox
97.9 F 66 16 133/95 100
09/25/24 08:45 09/25/24 09:16 09/25/24 09:16 09/25/24 08:46 09/25/24 08:46
Vital Signs
Temp Pulse Resp BP Pulse Ox
97.9 F 66 16 133/95 100
09/25/24 08:45 09/25/24 09:16 09/25/24 09:16 09/25/24 08:46 09/25/24 08:46
Intake & Output
09/23/24 09/24/24 09/25/24 09/26/24
06:59 06:59 06:59 06:59
Intake Total 720 / 720 450 / 450 414 / 414
Output Total 350 / 350 600 / 600 1200 / 1200
Balance 370 / 370 -150 / -150 -786 / -786
Physical Exam
Physical Exam
General: Well developed, well nourished in NAD.
Heart: Non displaced PMI, RRR, no murmurs, No S3, S4, no rubs.
Lungs: Clear to auscultation bilaterally, no wheeze, rhonchi, rubs bilaterally,
Extremities: No clubbing, cyanosis or edema bilaterally.
Neuro: Grossly nonfocal, awake, alert and oriented x3.
[2024-09-25 12:13] LABS: APTT 68.2 Sec (23.4-35.0)
[2024-09-25] MEDS: SENOKOT-S 1 TABLET PO (12:44)
[2024-09-25] MEDS: HEPARIN 25000 UNITS/250 ML IV (15:53)
[2024-09-25 16:15] VITALS: BP 120/89
[2024-09-25] MEDS: PRAVACHOL 10 MG PO (17:59)
[2024-09-25 19:01] LABS: APTT 107.3 Sec (23.4-35.0)
--- NOTE | 2024-09-25 20:00 | PTCARENOTE ---
Assumed care on pt at change of shift, aaox3, sitting on the chair with no complaints of cp/ or any discomfort. Heparin gtt running at 900unit/hr, nitro gtt at 1.5 ml/hr. SR on the monitor with occ PVC's, HR 70's. VSS. Pt ambulates self in room,
steady gait. Call cancino within reach.
[2024-09-25 20:01] VITALS: BP 114/91
[2024-09-25] MEDS: VITAMIN B1 100 MG PO (20:20)
[2024-09-25] MEDS: TYLENOL 650 MG PO (20:22)
--- NOTE | 2024-09-25 21:10 | PTCARENOTE ---
Pt with 9 beats of VTach on the monitor while walking the hallway, stating that felt it like flutter, but did not c/o dizziness, cp or SOB. call manager TELEPHONE LINEMAN made aware. VSS. Heparin and nitro gtt infusing.
[2024-09-25 22:35] VITALS: BP 130/84
[2024-09-25] MEDS: NORVASC 2.5 MG PO (22:36)
[2024-09-25 23:20] VITALS: BP 116/77
[2024-09-26] VITALS (9 sets, daily range): BP systolic 109–136; BP diastolic 68–96; BMI 29.4
[2024-09-26] MEDS: ULTRAM 25 MG PO ×4 (00:27→22:25)
[2024-09-26 01:55] LABS: Hematocrit 37.7 % (39.0-52.0); Hemoglobin 12.5 g/dL (13.0-18.0); Mean Corp Hgb Conc. 33.2 g/dL (33.0-37.0); Mean Corpuscular Volume 90.6 fL (80.0-94.0); Mean Platelet Volume 9.9 fL (7.4-10.4); Platelet Count 302 10^3/uL (130-400); Red Blood Cell Count 4.16 10^6/uL (4.70-6.10); Red Cell Dist. Width 15.4 % (11.5-14.5); White Blood Cell Count 8.7 10^3/uL (4.8-10.8)
[2024-09-26 02:06] LABS: APTT 86.6 Sec (23.4-35.0)
[2024-09-26 02:27] LABS: Blood Urea Nitrogen 19 mg/dl (9-20); Calcium 8.7 mg/dl (8.4-10.2); Carbon Dioxide 24 mmol/L (22-30); Chloride 111 mmol/L (98-107); Estimated Creatinine Clearance 52 ml/min; Glucose 99 mg/dl (70-99); Magnesium 1.9 mg/dl (1.6-2.3); Potassium 4.3 mmol/L (3.5-5.1); Sodium 139 mmol/L (135-145); eGFR 50.71
[2024-09-26] MEDS: TYLENOL 650 MG PO ×2 (05:07→14:43)
--- NOTE | 2024-09-26 05:49 | PTCARENOTE ---
Nitro gtt decreased to 5mcg/min @ 2238 d/t pt being cp free >2hr. Shortly after pt started c/o chest burning with pain 2/10, nitro increased to 10mcg/min with relief. Pt also c/o headaches overnight, Tylenol and tramadol prn given, + effect.
[2024-09-26] MEDS: SPIRIVA RESPIMAT 2.5 MCG 2 PUFF INH (08:23)
[2024-09-26] MEDS: SYMBICORT 80/4.5 MCG INHALER 2 PUFF INH ×2 (08:24→19:33)
[2024-09-26] MEDS: ENTRESTO 49 MG/51 MG 1 TAB PO (08:25)
[2024-09-26] MEDS: VITAMIN B1 100 MG PO ×2 (08:25→20:24)
[2024-09-26] MEDS: COREG 6.25 MG PO ×2 (08:25→20:24)
[2024-09-26] MEDS: PROTONIX 40 MG PO (08:25)
[2024-09-26] MEDS: ASPIR LOW (ENTERIC COATED) 81 MG PO (08:26)
[2024-09-26] MEDS: FOLVITE 1 MG PO (08:26)
[2024-09-26] MEDS: ZETIA 10 MG PO (08:26)
[2024-09-26] MEDS: SENOKOT-S 1 TABLET PO ×2 (08:30→22:25)
--- NOTE | 2024-09-26 08:57 | W.PN.UPDATE ---
Update Note
Progress Note Update
Brief CTS Note
Patient seen & evaluated alongside Dr. Jefferson
Indications, perioperative expectations, risks, and benefits of CABG + MAZE/LAAL discussed with the patient at length. Questions answered to his satisfaction.
He is agreeable to proceed with surgery. Plan for Friday afternoon (needs Entresto washout).
Obtain non contrast chest CT today. Will obtain carotid duplex in AM. No plans for radial artery utilization so will hold off on palmar arch study.
Informed consent obtained. NPO after MN. Type & cross 1 unit PRBC
Remainder of care per primary team in the interim
[2024-09-26] MEDS: ATIVAN 0.5 MG PO ×2 (11:03→22:25)
--- NOTE | 2024-09-26 12:05 | W.PN.CARDCBS ---
Today's Communication / Plan
-
Continue heparin IV, reordered
Continue nitrates IV, reordered
Plan for CT surgery this week for CABG
Entresto on hold
Impression / Plan
-
PCP: Nikki Subraamnian CHURCH WORKER
Cardiology: Dr. Ирина Sun
Impression:
Angina with progressive coronary artery disease by catheterization 09/23/2024
mid RCA hazy 70 to 80% at the proximal edge of the prior stent. Proximal LAD with significant disease 80% with concern regarding another branch vessel either high diagonal or ramus overlapping this area
s/p 3.0 mm Xience to mid RCA 10/14/19
Hyperlipidemia with statin intolerance to Lipitor and Crestor currently on Zetia. LDL 62
Tobacco use recently
Paroxysmal Afib
CKD 3b
Improved mixed ischemic and nonischemic CM, EF previously 20%, then 50% 09/2017, then 60-65% by echo 02/28/21, Echo 09/23/24 52%
Frequent PVCs
Hypertension
h/o orthostasis and syncope
Degenerative disc disease
Chronic back pain with history of spinal stenosis and prior back surgery
Alcohol use disorder
Exercise nuclear stress test 10/13/23: Patient completed 6 minutes Marco Antonio protocol, 7 METS activity, 103% MPHR, myocardial perfusion imaging normal, EF 52%
Echo 10/24/17: shows EF 50% with no significant valvular disease
Echo 02/28/21: EF 60-65%, mild basal inferolateral and basal inferior hypokinesis, mild conc LVH, normal diastolic function, mild MR
Echo 10/09/23: EF 50%, basal inferior and basal inferoseptum are akinetic, moderate concentric LVH, normal RV size and function
ECHO 12/11/23: EF 55 to 60%, severe hypokinesis of basal inferior wall, little significant change compared to prior
ECHO 09/23/24: pending
Plan:
Progressive coronary artery disease with angina. He did have mild angina with nitroglycerin drip was decreased. No further complaint.
After discussion yesterday and then discussion with CT surgery and much consideration the patient at this time would like to proceed with CABG as a method of revascularization for full revascularization. Appreciate CT surgery input. Plan for
surgery this week. Entresto washout.
mid RCA hazy 70 to 80% at the proximal edge of the prior stent. Proximal LAD with significant disease 80% with concern regarding another branch vessel either high diagonal or ramus overlapping this area
s/p 3.0 mm Xience to mid RCA 10/14/19
Preprocedure testing ordered-carotid ultrasound pending.
Continue heparin and nitrates for angina. Mild headache noted but tolerable.
Risk factor modification.
Telemetry independently reviewed by me and stable.
Hyperlipidemia with statin intolerance to Lipitor and Crestor currently on Zetia. LDL 62
Agreeable to try pravastatin low-dose which was started 09/25/2024
As an outpatient check LP(a)
Tobacco use recently
Discontinue tobacco and alcohol use
Paroxysmal Afib
Chronic Xarelto OAC currently on heparin. Continue.
Sinus rhythm noted.
CKD 3b
Stable continue to follow
Improved mixed ischemic and nonischemic CM, EF previously 20%, then 50% 09/2017, then 60-65% by echo 02/28/21, Echo 09/23/24 52%
Continue guideline directed medical therapy as tolerates
Frequent PVCs
Telemetry stable
Hypertension
Blood pressure acceptable
h/o orthostasis and syncope
Degenerative disc disease
Chronic back pain with history of spinal stenosis and prior back surgery
Alcohol use disorder
Progress Note - Junior Web Developer
Subjective
Date of Service: September 26, 2024
No further chest pain since nitroglycerin was increased.
Objective
Labs:
09/26/24 01:33
09/26/24 01:33
Labs
Hgb 12.5 g/dL (13.0-18.0) L 09/26/24 01:33
Hct 37.7 % (39.0-52.0) L 09/26/24 01:33
Plt Count 302 10^3/uL (130-400) 09/26/24 01:33
PT 13.2 Sec (11.4-14.6) 09/25/24 02:33
INR 0.97 09/25/24 02:33
APTT 86.6 Sec (23.4-35.0) H 09/26/24 01:33
Sodium 139 mmol/L (135-145) 09/26/24 01:33
Potassium 4.3 mmol/L (3.5-5.1) 09/26/24 01:33
BUN 19 mg/dl (9-20) 09/26/24 01:33
Creatinine 1.5 mg/dL (0.7-1.3) H 09/26/24 01:33
Glucose 99 mg/dl (70-99) 09/26/24 01:33
Vital Signs and I&O:
Vital Signs
Temp Pulse Resp BP Pulse Ox
97.6 F 60 16 116/77 96
09/26/24 08:02 09/26/24 08:27 09/26/24 08:27 09/25/24 23:20 09/26/24 08:02
Vital Signs
Temp Pulse Resp BP Pulse Ox
97.6 F 60 16 116/77 96
09/26/24 08:02 09/26/24 08:27 09/26/24 08:27 09/25/24 23:20 09/26/24 08:02
Intake & Output
09/24/24 09/25/24 09/26/24 09/27/24
06:59 06:59 06:59 06:59
Intake Total 450 / 450 414 / 414 240 / 240
Output Total 600 / 600 1200 / 1200 250 / 250
Balance -150 / -150 -786 / -786 -10 / -10
Physical Exam
Physical Exam
General: Well developed, well nourished in NAD.
Heart: Non displaced PMI, RRR, no murmurs, No S3, S4, no rubs.
Lungs: Clear to auscultation bilaterally, no wheeze, rhonchi, rubs bilaterally,
normal expiratory phase.
Extremities: No clubbing, cyanosis and trace edema bilaterally.
Neuro: Grossly nonfocal, awake, alert and oriented x3.
--- NOTE | 2024-09-26 15:29 | W.PN.HOSP.TC ---
Today's Communication/Plan
-
for OR fri
pre-cabg workup ongoing
continue current care
Assessment / Plan
Assessment / Plan
1. Chest pain/unstable angina - occurring at rest requiring frequent nitro up to point where patient will using his own nitro in the hospital as well. Troponin has been negative. EKG did not show any significant ST segment changes. Cardiology
evaluated and echocardiogram ordered which showed preserved ejection fraction. LHC showed possible instent stenosis of RCA and LAD stenosis which is difficult to intervene upon due to concern of jailing branch artery. Cardio recommended CABG
evaluation but patient/spouse was hesitant initially due to spouses' post CABG experience.
Continues to have chest pain, maintain on nitro drip/heparin drip - further adjustment deferred to cardiology,
Cardiothoracic surgery evaluated and patient is planned to have surgery on Friday
2. CKD stage IIIA -creatinine close to baseline. Avoid nephrotoxic medication.
3. Chronic diastolic congestive heart failure -no signs of volume overload. Diuretics per cardiology
4. Headache - with need of nitro. maintain on tyelnol/tramadol
5. Essential HTN - maintain on coreg/entersto
6. Paroxysmal atrial fibrillation - xarelto on hold, continue heparin drip
7. Hyperlipidemia - Continue statin
8. Hx Tobacco Use -Patient stopped smoking last week
9. Alcohol Abuse- Patient on MSAS protocol,
DVT PPx Heparin gtt
FULL CODE
Anticipated Discharge: > 48 hours
Subjective/Interval History
-
Date of Service: September 26, 2024
Some ongoing chest pain
No other reported problems
Objective Data
-
Vital Signs:
Vital Signs
Temp Pulse Resp BP Pulse Ox
97.8 F 72 20 125/86 100
09/26/24 11:50 09/26/24 12:00 09/26/24 11:50 09/26/24 11:48 09/26/24 11:50
I&O
09/25/24 09/26/24 09/27/24
06:59 06:59 06:59
Intake Total 414 / 414 240 / 240
Output Total 1200 / 1200 250 / 250
Balance -786 / -786 -10 / -10
Review of Systems
-
Respiratory: Reports No Symptoms
Cardiac: Reports Chest Pain
Abdomen/GI: Reports No Symptoms
Physical Exam
-
General: No Apparent Distress and Comfortable
HEENT: Negative Oxygen
Musculoskeletal: No Edema
Neuro: Awake, Alert, Oriented, No Motor Deficits and Nonfocal/Grossly Intact
Psych: Calm
[2024-09-26] MEDS: PRAVACHOL 10 MG PO (16:18)
[2024-09-26] MEDS: NITROGLYCERIN PREMIX 250 IV (16:19)
[2024-09-26] MEDS: HEPARIN 25000 UNITS/250 ML IV (20:17)
--- NOTE | 2024-09-26 21:27 | PTCARENOTE ---
assumed care of patient at the change of shift. AAOx3. denies any cp/sob at this time. heparin and nitro gtts infusing per protocol. IV site patent. R radial site- MARIA D, ecchymotic. independent in the room. complains of a slight headache-
'tolerable' per patient. reviewed plan of care and verbalized understanding. call cancino within reach. makes needs known.
[2024-09-26] MEDS: NORVASC 2.5 MG PO (22:25)
[2024-09-27 04:16] VITALS: BP 123/82
[2024-09-27 04:28] LABS: B.E. 0.3 mmol/L; HCO3 25.4 mmol/L (21-28); O2 Saturation % 98.1 % (94-98); PCO2 42 mmHg (35-48); PO2 85 mmHg (83-108); pH 7.39 (7.35-7.45)
[2024-09-27 04:32] LABS: Hematocrit 39.5 % (39.0-52.0); Hemoglobin 12.9 g/dL (13.0-18.0); Mean Corp Hgb Conc. 32.7 g/dL (33.0-37.0); Mean Corpuscular Hgb 29.7 pg (27.0-31.0); Mean Platelet Volume 9.8 fL (7.4-10.4); Platelet Count 303 10^3/uL (130-400); Red Blood Cell Count 4.34 10^6/uL (4.70-6.10); Red Cell Dist. Width 15.2 % (11.5-14.5); White Blood Cell Count 8.6 10^3/uL (4.8-10.8)
[2024-09-27 04:38] LABS: INR 0.96; PT 13.1 Sec (11.4-14.6)
[2024-09-27 04:41] LABS: APTT 115.3 Sec (23.4-35.0)
[2024-09-27 05:25] LABS: ALT (SGPT) 41 U/L (0-50); AST (SGOT) 58 U/L (17-59); Alkaline Phosphatase 57 U/L (38-126); Blood Urea Nitrogen 18 mg/dl (9-20); Calcium 9.1 mg/dl (8.4-10.2); Carbon Dioxide 22 mmol/L (22-30); Chloride 110 mmol/L (98-107); Estimated Creatinine Clearance 56 ml/min; Glucose 104 mg/dl (70-99); Potassium 4.5 mmol/L (3.5-5.1); Sodium 135 mmol/L (135-145); Total Bilirubin 0.5 mg/dl (0.2-1.3); Total Protein 6.3 g/dl (6.3-8.2); eGFR 55.09
[2024-09-27 05:43] LABS: Direct Bilirubin 0.1 mg/dl (0.0-0.4)
[2024-09-27] MEDS: ULTRAM 25 MG PO ×2 (06:26→21:17)
[2024-09-27] MEDS: SPIRIVA RESPIMAT 2.5 MCG 2 PUFF INH (07:28)
[2024-09-27] MEDS: SYMBICORT 80/4.5 MCG INHALER 2 PUFF INH ×2 (07:28→20:10)
[2024-09-27 07:32] VITALS: BP 125/94
[2024-09-27] MEDS: ASPIR LOW (ENTERIC COATED) 81 MG PO (07:35)
[2024-09-27] MEDS: VITAMIN B1 100 MG PO ×2 (07:35→20:12)
[2024-09-27] MEDS: FOLVITE 1 MG PO (07:35)
[2024-09-27] MEDS: COREG 6.25 MG PO ×2 (07:35→20:12)
[2024-09-27] MEDS: PROTONIX 40 MG PO (07:35)
[2024-09-27] MEDS: ZETIA 10 MG PO (07:35)
--- NOTE | 2024-09-27 08:17 | PTCARENOTE ---
pt pain free. heparin and ntg gtt running as ordered.
[2024-09-27 09:28] VITALS: BMI 29.3
[2024-09-27] MEDS: MIRALAX 17 GRAMS PO (10:05)
--- NOTE | 2024-09-27 10:24 | CM ---
Reviewed chart. Met with Mr. Hou to review discharge plans. He states he is feeling well and maybe going for surgery soon. Prior to admission he resides with is spouse in a spilt level home with seven steps to enter. He has seven steps to get
to his bedroom/full bathroom. Prior to admission he was independent with ambulation and adls. He has a nebulizer at home. He has a prescription plan and uses [facility]. His spouse will be home to assist in his care if needed. He states a
good friend is coming to stay with them for awhile starting on October 03, 2024 and she will be available to assist in his care also if needed. Medical work-up in progress. The discharge plan is to return home with his spouse and a home visit by the
Transitional Care Nurse when medically stable.
We reviewed pre-op and post-op routines. We briefly reviewed the shower instructions. He already has the Cardiothoracic Surgery Educational Booklet. We reviewed restrictions including sternal precautions and driving restrictions. We discussed a
home visit by the Transitional Care Nurse. He is agreeable to a home visit. The plan is to CABG on Saturday, September 28, 2024.
--- NOTE | 2024-09-27 10:44 | W.PN.CARDCBS ---
Today's Communication / Plan
-
CABG tomorrow
Continue heparin and nitrates
Carotid ultrasound pending
Impression / Plan
-
PCP: Nikki Subramanian DEAL ARCHITECT
Cardiology: Dr. Ирина Sun
Impression:
Angina with progressive coronary artery disease by catheterization 09/23/2024
mid RCA hazy 70 to 80% at the proximal edge of the prior stent. Proximal LAD with significant disease 80% with concern regarding another branch vessel either high diagonal or ramus overlapping this area
s/p 3.0 mm Xience to mid RCA 10/14/19
Hyperlipidemia with statin intolerance to Lipitor and Crestor currently on Zetia. LDL 62
Tobacco use recently
Paroxysmal Afib
CKD 3b
Improved mixed ischemic and nonischemic CM, EF previously 20%, then 50% 09/2017, then 60-65% by echo 02/28/21, Echo 09/23/24 52%
Frequent PVCs
Hypertension
h/o orthostasis and syncope
Degenerative disc disease
Chronic back pain with history of spinal stenosis and prior back surgery
Alcohol use disorder
Exercise nuclear stress test 10/13/23: Patient completed 6 minutes Marco Antonio protocol, 7 METS activity, 103% MPHR, myocardial perfusion imaging normal, EF 52%
Echo 10/24/17: shows EF 50% with no significant valvular disease
Echo 02/28/21: EF 60-65%, mild basal inferolateral and basal inferior hypokinesis, mild conc LVH, normal diastolic function, mild MR
Echo 10/09/23: EF 50%, basal inferior and basal inferoseptum are akinetic, moderate concentric LVH, normal RV size and function
ECHO 12/11/23: EF 55 to 60%, severe hypokinesis of basal inferior wall, little significant change compared to prior
ECHO 09/23/24: pending
Plan:
Progressive coronary artery disease with angina. He did have mild angina with nitroglycerin drip was decreased on 09/26/2024. No further complaint.
Plan for CABG after discussion with CT surgery and myself. Continue Entresto washout.
mid RCA hazy 70 to 80% at the proximal edge of the prior stent. Proximal LAD with significant disease 80% with concern regarding another branch vessel either high diagonal or ramus overlapping this area
s/p 3.0 mm Xience to mid RCA 10/14/19
Preprocedure testing ordered-carotid ultrasound pending.
Continue heparin and nitrates for angina. Mild headache noted but tolerable.
Risk factor modification.
Telemetry independently reviewed by me and stable.
Carotid ultrasound and vein mapping pending
Hyperlipidemia with statin intolerance to Lipitor and Crestor currently on Zetia. LDL 62
Agreeable to try pravastatin low-dose which was started 09/25/2024. Continue.
As an outpatient check LP(a)
Tobacco use recently
Discontinue tobacco and alcohol use
Paroxysmal Afib
Chronic Xarelto OAC currently on heparin. Continue.
Sinus rhythm noted.
CKD 3b
Stable continue to follow
Improved mixed ischemic and nonischemic CM, EF previously 20%, then 50% 09/2017, then 60-65% by echo 02/28/21, Echo 09/23/24 52%
Continue guideline directed medical therapy as tolerates
Frequent PVCs
Telemetry stable
Hypertension
Blood pressure acceptable
h/o orthostasis and syncope
Degenerative disc disease
Chronic back pain with history of spinal stenosis and prior back surgery
Alcohol use disorder
Progress Note - Site Specialist
Subjective
Date of Service: September 27, 2024
No chest discomfort overnight. He continues on heparin and nitro intravenously
Objective
Labs:
09/27/24 04:16
09/27/24 04:16
Labs
Hgb 12.9 g/dL (13.0-18.0) L 09/27/24 04:16
Hct 39.5 % (39.0-52.0) 09/27/24 04:16
Plt Count 303 10^3/uL (130-400) 09/27/24 04:16
PT 13.1 Sec (11.4-14.6) 09/27/24 04:16
INR 0.96 09/27/24 04:16
APTT 115.3 Sec (23.4-35.0) H 09/27/24 04:16
Sodium 135 mmol/L (135-145) 09/27/24 04:16
Potassium 4.5 mmol/L (3.5-5.1) 09/27/24 04:16
BUN 18 mg/dl (9-20) 09/27/24 04:16
Creatinine 1.4 mg/dL (0.7-1.3) H 09/27/24 04:16
Glucose 104 mg/dl (70-99) H 09/27/24 04:16
Vital Signs and I&O:
Vital Signs
Temp Pulse Resp BP Pulse Ox
98.5 F 75 16 125/94 99
09/27/24 06:56 09/27/24 08:15 09/27/24 07:31 09/27/24 07:35 09/27/24 07:31
Vital Signs
Temp Pulse Resp BP Pulse Ox
98.5 F 75 16 125/94 99
09/27/24 06:56 09/27/24 08:15 09/27/24 07:31 09/27/24 07:35 09/27/24 07:31
Intake & Output
09/25/24 09/26/24 09/27/24 09/28/24
06:59 06:59 06:59 06:59
Intake Total 414 / 414 240 / 240 480 / 480
Output Total 1200 / 1200 250 / 250
Balance -786 / -786 -10 / -10 480 / 480
Physical Exam
Physical Exam
General: Well developed, well nourished in NAD.
Heart: Non displaced PMI, RRR, no murmurs, No S3, S4, no rubs.
Lungs: Clear to auscultation bilaterally, no wheeze, rhonchi, rubs bilaterally,
Extremities: No clubbing, cyanosis or edema bilaterally.
Neuro: Grossly nonfocal, awake, alert and oriented x3.
[2024-09-27 11:16] VITALS: BP 128/73
[2024-09-27] MEDS: TYLENOL 650 MG PO ×2 (11:22→22:54)
[2024-09-27 11:29] LABS: APTT > 200 Sec (23.4-35.0)
--- NOTE | 2024-09-27 12:32 | W.PN.HOSP.TC ---
Today's Communication/Plan
-
CABG
Assessment / Plan
Assessment / Plan
68 Y/O Pleasant man with chest pain
Echo-LV thickness. EF 52%. Basal inferior wall, basal, mid inferolateral tolentino and basal inferoseptum appear hypokinetic. Normal diastolic function. Normal RV size and function. Mild MR. Trace AI.
Cardiovascular system S1-S2 appreciated
Chest clear to auscultation
Abdomen soft and nontender
No pedal edema
Pupils are equal reactive
Patient ambulating-good strength
No neck stiffness
# Chest pain/unstable angina
Coronary artery disease with history of stent
Troponin negative, EKG no specific ST-T changes
Cardiology evaluation appreciated
Echo-as above
Left heart cath showed possible in-stent stenosis of the RCA and LAD which is difficult intervene
Continue nitro/heparin drip, aspirin, statin, Coreg, Entresto
Cardiology recommended CABG evaluation
Cardiothoracic surgery evaluated and patient is planned to have surgery on 09/28/2024
Carotid ultrasound pending
# Headache-started after nitroglycerin, when nitroglycerin drip gets weaned down his headaches get better. Headaches get worse when nitro is titrated up for his chest pains. No head trauma or falls.. Patient is aware to let us know if the
headache is changing in quality or worse.
# CKD stage III
# Chronic HFpEF-continue Coreg, Entresto
Improved mixed ischemic and nonischemic CM, EF previously 20%, then 50% 09/2017, then 60-65% by echo 02/28/21, Echo 09/23/24 52%
# Hypertension-continue Norvasc, Entresto and Coreg
# Paroxysmal C-bgq-Ucjayqd on hold. Patient currently on heparin drip. In sinus rhythm now
# Hyperlipidemia-Zetia, previous intolerance to statin. Pravastatin started
# Reactive airway disease/chronic bronchitis-continue Spiriva, budesonide/formoterol
# Esophageal spasm and history of esophageal food impaction/GERD/Hiatal Hernia-continue PPI
# DJD/lumbar spine surgery/history of nerve ablation/history of epidural injections
# Daily alcohol use-MSAS protocol ( Score 0). Thiamine
# Smoker-stopped last week . He had previously quit for 15 years and now picked up again 6 weeks ago due to stress. He is committed to stopping.
# DVT prophylaxis-Heparin drip
# Full code
Discussed with nursing at bedside
Part of this note was created using voice recognition system. Occasional wrong word or��sound alike� substitutions may have inadvertently occurred due to the inherent limitations of voice recognition software. If noted kindly bring it to my
attention for correction.
Anticipated Discharge: > 48 hours
Subjective/Interval History
-
Date of Service: September 27, 2024
Objective Data
-
Labs:
Laboratory Results
09/27/24 09/27/24 09/27/24
04:16 10:33 11:43
WBC 8.6
Hgb 12.9 L
Hct 39.5
Plt Count 303
PT 13.1
INR 0.96
APTT 115.3 H > 200 H* 73.0 H
HCO3 25.4
Sodium 135
Potassium 4.5
Chloride 110 H
Carbon Dioxide 22
BUN 18
Creatinine 1.4 H
Glucose 104 H
Calcium 9.1
Total Bilirubin 0.5
AST 58
ALT 41
Alkaline Phosphatase 57
09/27/24
18:30
WBC
Hgb
Hct
Plt Count
PT
INR
APTT Pending
HCO3
Sodium
Potassium
Chloride
Carbon Dioxide
BUN
Creatinine
Glucose
Calcium
Total Bilirubin
AST
ALT
Alkaline Phosphatase
Vital Signs:
Vital Signs
Temp Pulse Resp BP Pulse Ox
97.9 F 75 20 125/94 98
09/27/24 11:17 09/27/24 08:15 09/27/24 11:17 09/27/24 07:35 09/27/24 11:17
I&O
09/26/24 09/27/24 09/28/24
06:59 06:59 06:59
Intake Total 240 / 240 480 / 480
Output Total 250 / 250
Balance -10 / -10 480 / 480
[2024-09-27 15:11] VITALS: BP 120/77
[2024-09-27] MEDS: PRAVACHOL 10 MG PO (17:46)
[2024-09-27 18:26] LABS: APTT 95.6 Sec (23.4-35.0)
[2024-09-27 20:08] VITALS: BP 132/87
[2024-09-27] MEDS: DULCOLAX 10 MG RECTAL (20:33)
[2024-09-27] MEDS: NORVASC PO (20:36)
--- NOTE | 2024-09-27 21:30 | PTCARENOTE ---
Pt admitted to room 2265 from IVU. Pt AAOx3. Independent. SR on the tele monitor. HR 70s. BP stable. No edema. Palpable pulses throughout. Pt on RA. POX 98-100%. Lung sounds audible throughout. IS encouraged. Abdomen soft/nontender. +BS. Pt voiding
w/o issue. Pt requested suppository in order to have a BM. PIV x2 intact. Heparin and nitro infusing as ordered. Pt updated on plan of care for the night and NPO status starting at midnight. Pt clipped and given CHG shower #1. See worklist for full
nursing assessment and interventions. Call cancino within reach.
[2024-09-27] MEDS: ATIVAN 0.5 MG PO (22:32)
[2024-09-27 22:57] VITALS: BP 118/70
[2024-09-28] VITALS (14 sets, daily range): BP systolic 75–151; BP diastolic 61–99; BMI 28.8
--- NOTE | 2024-09-28 00:52 | PTCARENOTE ---
Assessment unchanged. SR on the tele monitor. HR 70s. VSS. Heparin and nitro infusing as ordered. Pt resting in bed at this time. Call cancino within reach.
[2024-09-28] MEDS: HEPARIN 25000 UNITS/250 ML IV (04:12)
[2024-09-28 04:52] LABS: Hematocrit 39.3 % (39.0-52.0); Hemoglobin 12.9 g/dL (13.0-18.0); Mean Corp Hgb Conc. 32.8 g/dL (33.0-37.0); Mean Corpuscular Hgb 30.3 pg (27.0-31.0); Mean Corpuscular Volume 92.3 fL (80.0-94.0); Mean Platelet Volume 9.8 fL (7.4-10.4); Platelet Count 315 10^3/uL (130-400); Red Blood Cell Count 4.26 10^6/uL (4.70-6.10); Red Cell Dist. Width 15.2 % (11.5-14.5); White Blood Cell Count 9.7 10^3/uL (4.8-10.8)
[2024-09-28 04:58] LABS: APTT 106.8 Sec (23.4-35.0)
--- NOTE | 2024-09-28 05:05 | PTCARENOTE ---
No change in assessment. Pt is SR on the tele monitor. HR 60-70s. BP stable. B/L BP's obtained. Pt is 97% on RA. Weight obtained. Pt given CHG wipe bath (#2). Gown/linens/leads changed. Pt reminded of NPO status. Voiding w/o issue. Heparin and nitro
maintained. Call cancino within reach.
[2024-09-28 05:20] LABS: Blood Urea Nitrogen 21 mg/dl (9-20); Calcium 9.3 mg/dl (8.4-10.2); Carbon Dioxide 23 mmol/L (22-30); Chloride 107 mmol/L (98-107); Estimated Creatinine Clearance 49 ml/min; Glucose 89 mg/dl (70-99); Potassium 4.6 mmol/L (3.5-5.1); Sodium 138 mmol/L (135-145); eGFR 46.93
--- NOTE | 2024-09-28 06:19 | W.CVOR.SURPR ---
CVOR Surgeon Immed Pre Op
-
I have examined this patient prior to performance of the scheduled procedure.
The patient's condition is unchanged from the time of the dictated/written History and
Physical and the patient is able to undergo the scheduled procedure.
CABG + LA MAZE + SUDHA CLip
[2024-09-28] MEDS: SPIRIVA RESPIMAT 2.5 MCG INH (08:26)
[2024-09-28] MEDS: SYMBICORT 80/4.5 MCG INHALER INH ×2 (08:26→20:07)
--- NOTE | 2024-09-28 08:30 | PTCARENOTE ---
pt received from previous RN, oriented, in bed. SB/SR on the monitor, HR 50-70s. denies CP or SOB. SBP 120s. Nitro and heparin gtts running as ordered. pt on RA, 97-99% POX. NPO. voids in urinal. PIV. MEDICARE INSURANCE SPECIALIST at bedside to place R Radial Taniya. see
worklist for VS, I&O, and assessment.
[2024-09-28] MEDS: LOPRESSOR 25 MG PO (09:41)
[2024-09-28] MEDS: BACTROBAN 2% OINTMENT 1 APPLIC NASAL ×2 (09:41→21:15)
[2024-09-28] MEDS: MAGNESIUM OXIDE 500 MG PO (09:41)
[2024-09-28] MEDS: PROTONIX 40 MG PO (09:41)
--- NOTE | 2024-09-28 09:49 | W.PN.UPDATE ---
Update Note
Progress Note Update
Arterial line insertion
Area cleansed with CHG, sterile prep and drape, local Lidocaine 1% injected. Right arterial line placed via ultrasound guidance and attached to continuous monitoring. Secured with Biopatch and tegaderm.
--- NOTE | 2024-09-28 10:01 | PTCARENOTE ---
R radial [place] flushed, zeroed, and calibrated. pre op meds given.
--- NOTE | 2024-09-28 11:03 | PTCARENOTE ---
pt sent to CVOR w/ X3 monitor on nitro gtt, heparin gtt on hold instructional technology instructor to OR. report given to Attila LEUNG CVOR. sent to waiting room.
--- NOTE | 2024-09-28 11:16 | W.PN.UPDATE ---
Update Note
Progress Note Update
Pt was transferred to CTS service and for CABG at 11 am today.
Will sign off.
Pls call us back if we can help
TY
[2024-09-28 11:41] LABS: Urine Albumin Negative (Neg - Trace); Urine Bilirubin Negative (Negative); Urine Character Slightly Cloudy (Clear); Urine Glucose Negative (Negative); Urine Ketone Negative (Negative); Urine Leukocyte Negative (Negative); Urine Nitrite Negative (Negative); Urine Occult Blood 2+ (Negative); Urine Urobilinogen Negative (Neg - 1+)
[2024-09-28 11:42] LABS: Urine Color Straw
[2024-09-28 11:49] LABS: Urine Squamous Cell 0-2 /LPF (Few)
[2024-09-28 11:50] LABS: Urine Bacteria Few (Negative)
[2024-09-28 11:51] LABS: ACT+ - POC 126 Seconds (82-134)
[2024-09-28 11:51] LABS: Urine Hyaline Cast 0-2 /LPF (0-2)
[2024-09-28 13:07] LABS: ACT+ - POC 381 Seconds (82-134)
[2024-09-28 13:18] LABS: ACT+ - POC 512 Seconds (82-134)
[2024-09-28 13:40] LABS: ACT+ - POC 538 Seconds (82-134)
--- NOTE | 2024-09-28 13:57 | CM ---
Chart reviewed. Patient is in the OR today. Patient is independent of ADLS, lives with his in a split level, 7 TING, 0 DME. Plan is for the patient to return home with CT Transitional RN. CM to follow
[2024-09-28 14:13] LABS: ACT+ - POC 517 Seconds (82-134)
[2024-09-28 14:30] LABS: ACT+ - POC 451 Seconds (82-134)
--- NOTE | 2024-09-28 14:54 | W.PN.CARDCBS ---
Addendum entered and electronically signed by Ericka Jay PA-C 09/28/24 16:06:
Patient seen in CVICU post op
-s/p CABGx3 In situ LOAIZA to LAD, Ao to RSVG to ramus versus high diagonal, Ao to RSVG to distal RCA, MAZE, SUDHA clip 09/28/24
-intubated, sedated
-on levo@4, wean as able.
-EKG and labs pending
-continue post op care. will follow.
Original Note:
Today's Communication / Plan
-
For CABG today
Impression / Plan
-
PCP: Nikki Subramanian NP
Cardiology: Dr. Ирина Sun
Impression:
Angina with progressive coronary artery disease by catheterization 09/23/2024
mid RCA hazy 70 to 80% at the proximal edge of the prior stent. Proximal LAD with significant disease 80% with concern regarding another branch vessel either high diagonal or ramus overlapping this area
s/p 3.0 mm Xience to mid RCA 10/14/19
Hyperlipidemia with statin intolerance to Lipitor and Crestor currently on Zetia. LDL 62
Tobacco use recently
Paroxysmal Afib
CKD 3b
Improved mixed ischemic and nonischemic CM, EF previously 20%, then 50% 09/2017, then 60-65% by echo 02/28/21, Echo 09/23/24 52%
Frequent PVCs
Hypertension
h/o orthostasis and syncope
Degenerative disc disease
Chronic back pain with history of spinal stenosis and prior back surgery
Alcohol use disorder
Exercise nuclear stress test 10/13/23: Patient completed 6 minutes Marco Antonio protocol, 7 METS activity, 103% MPHR, myocardial perfusion imaging normal, EF 52%
Echo 10/24/17: shows EF 50% with no significant valvular disease
Echo 02/28/21: EF 60-65%, mild basal inferolateral and basal inferior hypokinesis, mild conc LVH, normal diastolic function, mild MR
Echo 10/09/23: EF 50%, basal inferior and basal inferoseptum are akinetic, moderate concentric LVH, normal RV size and function
ECHO 12/11/23: EF 55 to 60%, severe hypokinesis of basal inferior wall, little significant change compared to prior
ECHO 09/23/24: pending
Plan:
Progressive coronary artery disease with angina. He did have mild angina with nitroglycerin drip was decreased on 09/26/2024. No further complaint.
Plan for CABG September 28 2024
Continue Entresto washout.
CAD: mid RCA hazy 70 to 80% at the proximal edge of the prior stent. Proximal LAD with significant disease 80% with concern regarding another branch vessel either high diagonal or ramus overlapping this area
s/p 3.0 mm Xience to mid RCA 10/14/19
Continue heparin and nitrates for angina.
Hyperlipidemia with statin intolerance to Lipitor and Crestor currently on Zetia. LDL 62
Agreeable to try pravastatin low-dose which was started 09/25/2024.
As an outpatient check LP(a) per Dr Gifford
Tobacco use recently
Discontinue tobacco and alcohol use
Paroxysmal Afib
Chronic Xarelto OAC currently on heparin.
Remains sinus
Improved mixed ischemic and nonischemic CM, EF previously 20%, then 50% 09/2017, then 60-65% by echo 02/28/21, Echo 09/23/24 52%
Continue guideline directed medical therapy as tolerates
Frequent PVCs
Telemetry stable
Hypertension
Blood pressure remains acceptable
Discussed with nursing and family at bedside
Progress Note - [place] [employer] Maker
Subjective
Date of Service: September 28, 2024
Patient seen and examined preop.
Objective
Labs:
09/28/24 04:33
09/28/24 04:33
Labs
Hgb 12.9 g/dL (13.0-18.0) L 09/28/24 04:33
Hct 39.3 % (39.0-52.0) 09/28/24 04:33
Plt Count 315 10^3/uL (130-400) 09/28/24 04:33
PT 13.1 Sec (11.4-14.6) 09/27/24 04:16
INR 0.96 09/27/24 04:16
APTT 106.8 Sec (23.4-35.0) H 09/28/24 04:33
Sodium 138 mmol/L (135-145) 09/28/24 04:33
Potassium 4.6 mmol/L (3.5-5.1) 09/28/24 04:33
BUN 21 mg/dl (9-20) H 09/28/24 04:33
Creatinine 1.6 mg/dL (0.7-1.3) H 09/28/24 04:33
Glucose 89 mg/dl (70-99) 09/28/24 04:33
Vital Signs and I&O:
Vital Signs
Temp Pulse Resp BP Pulse Ox
97.9 F 58 18 151/91 100
09/28/24 08:00 09/28/24 10:45 09/28/24 08:00 09/28/24 09:54 09/28/24 10:15
Vital Signs
Temp Pulse Resp BP Pulse Ox
97.9 F 58 18 151/91 100
09/28/24 08:00 09/28/24 10:45 09/28/24 08:00 09/28/24 09:54 09/28/24 10:15
Intake & Output
09/26/24 09/27/24 09/28/24 09/29/24
06:59 06:59 06:59 06:59
Intake Total 240 / 240 480 / 480 104.5 / 104.5 38.0 / 38.0
Output Total 250 / 250 750 / 750 200 / 200
Balance -10 / -10 480 / 480 -645.5 / -645.5 -162.0 / -162.0
Physical Exam
Physical Exam
General: No acute distress, AAOX3
Neck: Negative JVD
Heart: Regular, Negative S3 positive S1/S2, Negative S4, No murmur
Lungs: CTA b/l, negative wheezes/rales/rhonchi
Abd: Positive BS, NT/ND, neg rebound/rigidity/guarding
Ext: Negative cyanosis/clubbing/edema
Neuro: nonfocal
[2024-09-28 14:56] LABS: ACT+ - POC 123 Seconds (82-134)
--- NOTE | 2024-09-28 15:16 | W.PN.CT.SURG ---
CT Surgery Operative Note
-
CARDIAC SURGERY OPERATIVE REPORT
Preoperative Diagnosis: Multivessel Coronary Artery Disease with unstable angina, paroxysmal atrial fibrillation
Postoperative Diagnosis: Same
Procedure(s) Performed:
1. Standard sternotomy with aortic and right atrial cannulation
2. Internal mammary artery harvesting on the left
3. Coronary artery bypass grafting x 3 (In situ LOAIZA to LAD, Ao to RSVG to ramus versus high diagonal, Ao to RSVG to distal RCA)
4. Modified left atrial maze [posterior wall isolation using RF ablation]
5. Left atrial appendage exclusion [35mm clip]
6. Endoscopic vein harvesting of right lower extremity
7. Placement of temporary ventricular pacing wire
8. Transesophageal echocardiography
Date of Surgery: 09/28/2024
Comorbidities:
1. Multivessel coronary artery disease with unstable angina
2. CKD stage IIIb
3. Paroxysmal atrial fibrillation
4. Hypertension
5. Hyperlipidemia
6. Ischemic cardiomyopathy
7. COPD
8. GERD
Attending Surgeon: Polo Jefferson MD, MS
Assistants: Nani Hoyos PA-C (present and necessary to orthodontic assistant, retraction, suction, exposure, suture management, and wound closure under my direction) and QUAN Gonzales ( endoscopic vein harvest)
Anesthesiology: Yifan Mensah MD and Shemar Clifton CRNA
Scrub and Circulating RNs: Gonzalo Hanson, XOCHITL, Roseann Deal, XOCHITL & Ivanna Waller RN, Rito Henderson RN
Double Backer: Hazel Wills CCP
Anesthesia: GETA
EBL: per perfusion records
Products: none
CPB Time: 79 minutes
Aortic Cross Clamp Time: 55 minutes
Indication(s) for Procedures: This is a 68-year-old male with a previous history of myocardial infarction requiring a stent who presents with chest discomfort relieved by sublingual nitroglycerin underwent left heart cath and was found to have
severe proximal LAD disease. There was a high diagonal branch that was concerning to be possibly involved in this area and so PCI stenting could possibly jailed it. CT surgery was consulted as he had multivessel coronary artery disease. After
discussion with the patient he opted to move forward with surgical revascularization as well as left atrial maze and clip given his history of paroxysmal A-fib.
Conduit(s) Quality:
LOAIZA -excellent/skeletonized, mean flow on Transonic flow probe assessment was 30 cc a minute with a pulse index of 1.5
RSVG -excellent/good quality vein, uniform in size with minimal varicosities, no significant thickening
Target(s) Quality:
RCA/PDA -good/the distal RCA was grafted it had a good caliber vessel and a mean flow of approximately 30 cc to 40 cc a minute at a pressure of 80 mmHg. Transonic flow probe assessment had a mean flow of 10 cc a minute with a pulse index of 4.4
Ramus-okay/smaller sized vessel left at a 1 to 1.5 mm probe, mean flow of 30 cc a minute at a pressure of 80 mmHg, Transonic flow probe had a mean flow of approximately 5 cc a minute with a pulse index of 10 indicating likely minimal proximal disease
LAD -excellent/good quality vessel, the LOAIZA was grafted here upon release of the bulldog clamp there was good visual flow in the LAD territory as well as backfilling into the diagonal with visual pinking up of the myocardium. The mean flow here
and Transonic flow probe assessment was 30 cc a minute with a pulse index of 1.5
Findings: His left ventricular ejection fraction preoperatively was 55% with no significant regional wall motion abnormalities. He did have a septal prominence that was quite impressive over 2 cm. Following surgery his EF remained the same at 55%
with no new regional wall motion abnormalities. After coming off cardiopulmonary bypass he was initially in a junctional rhythm with elevated T waves as his potassium at that time was 6.8, following correction he did resume his sinus rhythm had
narrow QRS with isoelectric ST segments. The LOAIZA was harvested in a skeletonized fashion. Following bypass grafting, test dose cardioplegia was given down each distal and confirmed patency and hemostasis. He did not require any blood products, he
did not require any inotropic support, after short period of ventricular pacing we resumed his lower [place] sinus rhythm. He did have a mild to moderate degree of mitral valve insufficiency following the pump run that resolved once he resumed his sinus
rhythm. A posterior wall isolation was performed using the encompass clamp and the left atrial appendage was clipped after verifying that it was free of any thrombus or debris preoperatively.
Description of Procedure: The patient was taken to the operating room. Their identity and procedure to be performed were verified and they were positioned supine on the operating table. Induction via general anesthesia with endotracheal intubation
was performed and central venous access and arterial monitoring were inserted. A preoperative transesophageal echocardiogram was performed to assess cardiac function and valvular function. The patient was then prepped and draped from chin to feet in
a sterile fashion. A preoperative time-out was performed with all members of the team present. A midline chest incision was performed along with median sternotomy. Simultaneous endoscopic access of the right lower extremity for saphenous vein
harvest was obtained along with administration of an initial 5,000 units of IV heparin. A RulTract sternal retractor was positioned to exposure the left internal mammary bed. The mammary was harvested and found to have good flow. A bulldog clamp was
applied to the distal end of the mammary after dividing it. It was wrapped in a papaverine soaked RayTec and replaced back into the left hemithorax. The RulTract was exchanged for a median sternal retractor. The innominate vein was isolated. Full
heparinization was given (a total of 65,000 units). We created a pericardial well. The aortic cannulation site was chosen where it was soft, pliable, and free of calcium. Cannulation was performed with an arterial cannula in the ascending aorta and
a triple-stage venous cannula through the right atrial appendage. The arterial cannula line had an appropriate bounce and correlating pressures with test dosing. Next, a root vent/antegrade cannula was inserted into the ascending aorta. The ACT was
confirmed to be over 400 and retrograde autologous priming was performed before commencing cardiopulmonary bypass. At this point the SVC was away from the right pulmonary artery, and the oblique sinus was developed. The encompass clamp
was passed underneath the SVC and IVC across the transverse and oblique sinuses respectively. 3 successful pairs of ablation were performed. The pulmonary artery was away from the aorta to facilitate a clamp site. The aortic cross-clamp
was placed after decreasing the flow on the bypass and mean arterial pressure. A total of 1.2L initial dose of antegrade Del-Nido cardioplegia solution was given and planned for re-dosing every 75 minutes as necessary. There was rapid
electro-mechanical arrest of the heart at 250 cc of cardioplegia. The left ventricle was observed for distention on echocardiogram and manual palpation. Cold slush was placed into a sponge and topically on the RV while we systemically cooled to 34
degrees centigrade. Once the heart was fully arrested was rotated medially and the left atrial appendage was clipped flush to the base.
I positioned the heart to expose the distal right coronary. A [place] blade was used to expose the coronary and perform the arteriotomy. Coronary Haney scissors were used to enlarge the incision. The saphenous vein was trimmed and beveled to an
appropriate size. The distal anastomosis was performed using 7-0 prolene in an end-to-side fashion. Antegrade cardioplegia was administered into the graft. Appropriate hemostasis and flow were confirmed. The graft was measured for length to the
aorta and cut. A suitable site on the ramus was chosen. We dissected and prepared the distal target in a similar fashion. An end-to-side anastomosis was created with a 7-0 prolene. Antegrade cardioplegia was administered into the graft. Appropriate
hemostasis and flow were confirmed. The graft was measured for length to the aorta and cut. A suitable target on the mid/distal left anterior descending was identified. We dissected and prepared the distal target in a similar fashion. We retrieved
the LOAIZA from the chest and created a pericardial opening while being cognizant of the phrenic nerve to facilitate the course of the mammary. The distal end of the mammary was prepped and beveled to size. We verified orientation and length of the
JAVON and found brisk flow. An end-to-side anastomosis was created with a 7-0 prolene. We temporarily released the bulldog clamp on the mammary to inspect flow. Perfusion to the LAD territory was visualized and hemostasis was confirmed. The bull clamp
was replaced on the mammary. The heart was filled and the root was distended with antegrade cardioplegia to make final assessment of graft length and orientation. We created 2 aortotomies using a #11 blade then a 4.0mm aortic punch. The proximal
anastomoses were created in an end-to-side fashion using 6-0 prolene. At the the same time, we re-warmed to 36.5 degrees centigrade. The bulldog clamp was removed from the mammary. Temporary bipolar ventricular pacing wires were placed on the base
of the right ventricle. The patient was placed in a Trendelenburg position and flows on bypass were lowered. The aortic cross clamp was removed and flows were slowly brought back up. All bypass grafts were inspected and were free from kinking or
twisting. The distal and proximal anastomoses appeared hemostatic. Once transesophageal echocardiography appeared satisfactory for de-airing, the flows were temporarily lowered for root vent removal. After verifying acceptable parameters, we
initiated weaning from cardiopulmonary bypass. Once we were off cardiopulmonary bypass, the venous cannula was clamped and removed. A test dose of protamine was administered and the patient was monitored for any adverse reaction before resuming
protamine. Once half of the protamine dose was delivered, pump suckers were turned off and the systolic blood pressure was lowered for aortic decannulation. The aortic cannula was removed and pursestrings were tied down. All cannulation sites were
oversewn with a 4-0 prolene. The mammary bed was inspected and hemostasis was confirmed. Once the mediastinum was hemostatic, 19Fr Simba drain was placed in the left pleural cavity and two 24Fr Simba drains were placed within the pericardium. The
sternum was approximated with 4 #7 single and 3 #8 double stainless steel wires. Fascia was approximated with #1 vicryl suture. The subcutaneous, dermis and epidermis were closed in layers in a running fashion. The skin wound was cleansed and
dressed.
All instrument, sponge, and needle counts were confirmed to be correct x 2 at the end of the operation. The patient was transferred to the cardiac intensive care unit in critical but stable condition.
I, Dr. Polo Jefferson, was present, scrubbed for, and performed all critical elements of this procedure.
Polo Jefferson MD, MS
Cardiothoracic Surgeon
[facility]
This operative dictation was created using the [employer] dictation system. Please excuse any grammatical, typographical, or 'sound alike' errors
[2024-09-28 15:19] LABS: B.E. - POC -1.4 mmol/L; Glucose - POC 92 mg/dl (70-99); HCO3 - POC 24 mmol/L (21-28); Hematocrit - POC 41 % PCV (42-52); Hemodilution- POC No; Ionized Calcium - POC 1.26 mmol/L (1.15-1.33); Lactate - POC < 0.30 mmol/L (0.36-0.75); O2 Saturation %Calculated-POC 99.8 % (94-98); PCO2 - POC 39 mmHg (35-48); PO2 - POC 243 mmHg (83-108); Potassium - POC 4.3 mmol/L (3.5-5.1); Sodium - POC 138 mmol/L (136-145); Specimen Type - POC Arterial; pH - POC 7.39 (7.35-7.45)
[2024-09-28 15:20] LABS: B.E. - POC 1.8 mmol/L; Glucose - POC 90 mg/dl (70-99); HCO3 - POC 28 mmol/L (21-28); Hematocrit - POC 36 % PCV (42-52); Hemodilution- POC Yes; Hemoglobin Calculated - POC 12.2; Ionized Calcium - POC 1.07 mmol/L (1.15-1.33); Lactate - POC < 0.30 mmol/L (0.36-0.75); PCO2 - POC 49 mmHg (35-48); PO2 - POC 406 mmHg (83-108); Potassium - POC 5.7 mmol/L (3.5-5.1); Sodium - POC 137 mmol/L (136-145); Specimen Type - POC Arterial; pH - POC 7.37 (7.35-7.45)
[2024-09-28 15:21] LABS: Glucose - POC 113 mg/dl (70-99); HCO3 - POC 26 mmol/L (21-28); Hematocrit - POC 37 % PCV (42-52); Hemodilution- POC Yes; Hemoglobin Calculated - POC 12.5; Ionized Calcium - POC 1.11 mmol/L (1.15-1.33); Lactate - POC < 0.30 mmol/L (0.36-0.75); PCO2 - POC 44 mmHg (35-48); PO2 - POC 433 mmHg (83-108); Potassium - POC 6.8 mmol/L (3.5-5.1); Sodium - POC 138 mmol/L (136-145); Specimen Type - POC Arterial; pH - POC 7.39 (7.35-7.45)
[2024-09-28 15:21] LABS: B.E. - POC -3.9 mmol/L; Glucose - POC 105 mg/dl (70-99); HCO3 - POC 22 mmol/L (21-28); Hematocrit - POC 36 % PCV (42-52); Hemodilution- POC Yes; Hemoglobin Calculated - POC 12.3; Ionized Calcium - POC 1.01 mmol/L (1.15-1.33); Lactate - POC < 0.30 mmol/L (0.36-0.75); O2 Saturation %Calculated-POC 99.9 % (94-98); PCO2 - POC 40 mmHg (35-48); PO2 - POC 334 mmHg (83-108); Potassium - POC 6.5 mmol/L (3.5-5.1); Sodium - POC 141 mmol/L (136-145); Specimen Type - POC Arterial; pH - POC 7.34 (7.35-7.45)
[2024-09-28 15:24] LABS: Glucose - POC 257 mg/dl (70-99); HCO3 - POC 24 mmol/L (21-28); Hematocrit - POC 32 % PCV (42-52); Hemodilution- POC Yes; Hemoglobin Calculated - POC 10.9; Ionized Calcium - POC 1.32 mmol/L (1.15-1.33); Lactate - POC < 0.30 mmol/L (0.36-0.75); PCO2 - POC 47 mmHg (35-48); PO2 - POC 427 mmHg (83-108); Potassium - POC 4.7 mmol/L (3.5-5.1); Sodium - POC 139 mmol/L (136-145); Specimen Type - POC Arterial; pH - POC 7.32 (7.35-7.45)
[2024-09-28] MEDS: ASPIR LOW (ENTERIC COATED) PO (15:26)
[2024-09-28] MEDS: VITAMIN B1 PO ×2 (15:27→21:16)
[2024-09-28] MEDS: ZETIA PO (15:27)
[2024-09-28] MEDS: FOLVITE PO (15:27)
[2024-09-28] MEDS: PROTONIX PO (15:27)
[2024-09-28] MEDS: PACERONE PO (15:28)
[2024-09-28] MEDS: TYLENOL PO (15:28)
--- NOTE | 2024-09-28 15:30 | CON.INTV ---
Addendum entered and electronically signed by Carly Milian MD 09/29/24 15:36:
09/29
- Patient transferred to telemetry floor
- Data Processing Auditor service will sign off, please call as needed
- Patient follows up with his primary care provider for underlying COPD and feels that his breathing is in good place.
Original Note:
Consultation
Consultation Request
Date/Time Consultation Requested: 09/28/2024
Date/Time Consultation Performed: 09/28/2024
Requesting Provider: Polo Jefferson
Performing Provider: Carly Milian
Reason for Consultation: CABG
Medical History
-
Chief Complaint: Chest pain
History of Present Illness:
Patient is a 68-year-old gentleman with history of paroxysmal atrial fibrillation, history of heart failure with preserved ejection fraction, history of PCI in 2019 who presented to the hospital with chest pain. Patient was admitted to the
hospitalist service and subsequently had a cardiac cath performed which was consistent with underlying coronary artery disease subsequently cardiothoracic surgery was consulted and patient had a coronary artery bypass graft performed today. Post
surgery, he was admitted to CVICU and contour sander consult was requested for further input.
PMH:
CAD, single vessel s/p 3.0 mm Xience to mid RCA 10/14/19
Paroxysmal Afib
Chronic Xarelto OAC
CKD 3b
Recovered mixed ischemic and nonischemic CM, EF previously 20%, then 50% 09/2017, then 60-65% by echo 02/28/21, then 50% by echo 10/09/23
Chronic mixed systolic/diastolic CHF
Frequent PVCs
h/o hypertension
h/o orthostasis and syncope
Alcohol use
GERD
Degenerative disc disease
Dyslipidemia
Carpal tunnel syndrome on right
Chronic back pain with history of spinal stenosis and prior back surgery
History of nephrolithiasis
Osteoarthritis degenerative disc disease
Past Medical History
Past Medical History: Other (in HPI)
Past Surgical History: Cardiac (RCA PCI 10/14/19), Cholecystectomy and Orthopedic
Social History
Tobacco: Smoker (started recently due to increased stress, stopped 1 week ago)
Alcohol: Daily (4 oz of liquor daily)
Drug: Marijuana
Personal:
Living: With Family
Family History
Family History: CAD, Cancer and Hypertension
Allergies / Home Medications
Allergies
Allergy/AdvReac Type Severity Reaction Status Date / Time
amoxicillin Allergy Nausea / Verified 09/22/24 18:27
Vomiting
anise oil Allergy Rash/SOB Verified 09/22/24 18:27
atorvastatin (From Lipitor) Allergy muscle Verified 09/24/24 16:24
soreness/stiffness
codeine (Codeine) Allergy UPSET Verified 09/24/24 16:24
STOMACH
doxycycline Allergy Anaphylaxis Verified 09/22/24 18:27
meperidine HCl (From Demerol) Allergy Nausea Verified 09/22/24 18:27
pentazocine (From Talwin) Allergy Confusion, Verified 09/24/24 16:24
hallucinations
pollen extracts Allergy nasal Verified 09/22/24 18:27
congestion,
watery eyes
rosuvastatin (From Crestor) Allergy cramping/muscle Verified 09/24/24 16:24
soreness
and
tightness
Home Medications
�Medication �Instructions �Recorded �Confirmed �Last Taken �Type
furosemide 40 mg tablet 20 mg PO PRN PRN edema, weight gain 10/01/17 09/22/24 06/17/22 History
carvedilol 12.5 mg tablet 6.25 mg PO BID Heart Failure 02/11/19 09/22/24 12/10/23 10:00 History
aspirin 81 mg tablet,delayed 81 mg PO DAILY Blood clot 10/14/19 09/22/24 12/10/23 10:00 History
release prevention/tx
multivitamin with folic acid 400 1 tab PO DAILY Supplement 10/14/19 09/22/24 12/09/23 10:00 History
mcg tablet (Tab-A-Flakito)
pantoprazole 40 mg tablet,delayed 40 mg PO DAILY Gastrointestinal 10/14/19 09/22/24 12/10/23 10:00 History
release issue
sildenafil 100 mg tablet (Viagra) 100 mg PO DAILYPRN PRN sexually 10/15/19 09/22/24 06/17/22 Rx
activity ##0
nitroglycerin 0.4 mg sublingual 0.4 mg sublingual [id number] PRN 02/13/21 09/22/24 09/22/24 History
tablet CHEST PAIN
acetaminophen 500 mg tablet 1,000 mg PO Q6HPRN PRN mild pain 07/03/22 09/22/24 12/08/23 History
amlodipine 2.5 mg tablet 2.5 mg PO HS Blood Pressure 07/03/22 09/22/24 12/09/23 22:00 History
ezetimibe 10 mg tablet (Zetia) 10 mg PO DAILY High Cholesterol 07/03/22 09/22/24 12/09/23 22:00 History
rivaroxaban 20 mg tablet (Xarelto) 20 mg PO QPM Blood Clot 07/03/22 09/22/24 12/09/23 22:00 History
Prevention/Tx
sacubitril 49 mg-valsartan 51 mg 1 tab PO BID Heart Failure 07/03/22 09/22/24 12/10/23 10:00 History
tablet (Entresto)
Medical Marijuana 1 dose PO HS mild pain/sleep 06/26/23 09/22/24 12/09/23 22:00 History
fluticasone fur. 100 mcg-umeclid 1 inh inhalation DAILY 09/22/24 09/22/24 Unknown History
62.5 mcg-vilant 25 mcg Lung/Breathing Issues
inhalat.powder (Trelegy Ellipta)
Review of Systems
-
Unable to Obtain full review of systems at this time due to: Patient Intubation
Vitals / Labs / Diagnostic Testing
Vital Signs
Temp Pulse Resp BP Pulse Ox
97.9 F 58 18 151/91 100
09/28/24 08:00 09/28/24 10:45 09/28/24 08:00 09/28/24 09:54 09/28/24 10:15
Laboratory Results
09/27/24 09/28/24
18:08 04:33
APTT 95.6 H 106.8 H
Diagnostic Testing:
Physical Exam
-
HEENT: Normocephalic
Cardiovascular: S1/S2
Respiratory: Clear and Other (No wheezing on exam)
GI: Soft
Neurology: Other (Patient currently sedated on Precedex)
Skin: Warm
General: Comfortable
Assessment
-
S/p coronary artery bypass graft, modified left atrial maze procedure, left atrial appendage exclusion, POD # 0
Titrate off pressors per protocol, currently on Levophed at 5
ECHO reviewed
PA catheter readings reviewed
Management of chest tubes per primary service
Intubated/sedated, initiate SAT when able, Precedex infusing at 0.4
Pain control
RASS goal of 0 to -1
Intubated for procedure, SBT trial when patient able to spontaneously breath
Current vent settings: SIMV with PS, 500/12/40%/5, pressure support 5
ABG(s) 7.3, 46, 175
CXR with no obvious opacities
Extubate per protocol
Maintain supplement oxygen as needed
Known history of smoking, suspect COPD, patient uses Trelegy at home. Currently Symbicort and Spiriva are ordered which are appropriate. No wheezing on exam
Can add nebulizers if needed
Aspiration precautions
Advance diet as tolerated following extubation
GI prophylaxis: Pantoprazole
Monitor critical I/O's
Leon/chest tube output
Hb/platelets postoperatively stable
Trend CBC for now
Can transfuse if indicated for Hb <7, plt <50 in surgical patients
DVT prophylaxis including SCDs
Insulin protocol initiated and ongoing
Transition to SQ/off as indicated per team
Other medical co-morbidities:
-CKD stage III, labs in AM, avoid nephrotoxic medications
-HTN, currently on Levophed
-Paroxysmal Atrial Fibrillation, on p.o. amiodarone and metoprolol
-HLD, pravastatin and Zetia
-Chronic HFpEF, strict input/output
-H/o Alcoholism. on MSAS, on thiamine and folic acid
Critical Care time 62 mins -- The patient is admitted for acute critical illness for the treatment of vital organ failure and/or prevention of further life-threatening conditions. Total care includes time spent in review of history, physical exam,
medications, hemodynamic/ventilator parameters, laboratory data, imaging and discussion with house staff, pharmacy, respiratory therapy, creasing machine operator, and nursing.
Data:
CT Chest 09/2024: 1. Moderate to severe calcific atherosclerotic plaque in the coronary arteries.
2. Mild to moderate calcific atherosclerotic plaque in the thoracic aorta.
3. Mild scarring in the basilar segments of the lower lobes of both lungs.
4. Moderate diffuse hepatic steatosis.
5. Severe discogenic degenerative disease in the lower cervical spine.
JOSE 09/2024: Normal biventricular systolic function. LVEF 55-60%.
Left ventricular hypertrophy with profound hypertrophy of the sub LVOT septum.
Grossly normal mitral and aortic valves.
Mild tricuspid regurgitation.
Normal size aorta with grade III atheromatous disease of the arch.
C 08/2024: 1. Proximal portion of the previously placed mid RCA stent has hazy 70 to 80% in-stent restenosis which is likely culprit of presenting unstable angina. This is a PCI target.
2. There is a smooth tubular 80% proximal LAD stenosis in some views appearing just proximal to the takeoff of one of the major diagonal branches however in other views there is concern about another branch vessel either a high diagonal or ramus
intermedius branch overlapping this with concern for possible jailing of the branch vessel if PCI were performed. Despite intravascular ultrasound of proximal LAD and the diagonal branch we could not define the anatomy well.
3. Normal LVEDP at 13 mmHg.
ECHO 08/2024: Normal left ventricular wall thickness. Normal left ventricular chamber size.
Low- Normal left ventricular systolic function. Left ventricular ejection
fraction is 52% by Kessler's method. Basal inferior wall, basal and mid
inferolateral tolentino, and the basal inferoseptum appear hypokinetic. Normal
diastolic function.
Normal right ventricular size and function.
Mild mitral regurgitation.
Thickened aortic valve with normal leaflet excursion. Trace aortic
regurgitation is seen.
No tricuspid regurgitation is seen. Right heart pressures could not be
determined.
Compared to echocardiogram 10/09/2023 no change noted. LVH has improved.
[2024-09-28] MEDS: NEURONTIN PO (15:37)
[2024-09-28 15:52] LABS: Glucose - Point of Care 116 mg/dl (70-99)
[2024-09-28 16:01] LABS: B.E. -3.9 mmol/L; HCO3 22.6 mmol/L (21-28); Ionized Calcium 1.19 mMOL/L (1.15-1.33); O2 Saturation % 99.3 % (94-98); PCO2 46 mmHg (35-48); PO2 175 mmHg (83-108); Potassium 4.3 mMOL/L (3.5-5.1); Sodium 136 mMOL/L (136-145)
[2024-09-28] MEDS: DILAUDID 0.5 MG IV (16:14)
[2024-09-28 16:17] LABS: Hematocrit 33.6 % (39.0-52.0); Hemoglobin 11.2 g/dL (13.0-18.0); INR 1.28; PT 16.3 Sec (11.4-14.6); Platelet Count 238 10^3/uL (130-400)
[2024-09-28 16:18] LABS: APTT 33.6 Sec (23.4-35.0)
[2024-09-28 16:19] LABS: Blood Urea Nitrogen 17 mg/dl (9-20); Estimated Creatinine Clearance 61 ml/min; Glucose 120 mg/dl (70-99); Magnesium 2.7 mg/dl (1.6-2.3)
[2024-09-28] MEDS: ANCEF 10 IV ×2 (16:19)
[2024-09-28] MEDS: NSS 500 IV (16:19)
[2024-09-28 17:01] LABS: Glucose - Point of Care 96 mg/dl (70-99)
[2024-09-28] MEDS: LR 250 ML IV ×2 (17:04→21:30)
--- NOTE | 2024-09-28 17:15 | W.PN.UPDATE ---
Update Note
Progress Note Update
78-year-old male was admitted on 09/22/2024 with chest pain. Ruled out for CT by troponins. Patient underwent left heart cath on 09/23 which reported multivessel coronary disease. Patient's last dose of Entresto and Xarelto was on 09/22/2024. He
was evaluated by CT surgery and deemed appropriate candidate for CABG, maze, and left atrial manage clip for history of PAF.
Crystalloid:� 1500
U.O.:� 500
Blood:� none
Wires:� bipolar V-wire
Drips: Levophed @ 6, Precedex @ 5, Insulin
�
NEURO: sedated, pupils +2mm B/L
RESP: #8OT @24cm> 500/60%//5. Lungs clear B/L. 2 mediastinal (10cc on arrival) and L pleural (0cc on arrival) chest tubes to -20cm suction. Sanguineous drainage, no air leak, no crepitus
CV: RRR +S1, S2, no S3, no�rub, no murmur. Dermabond to median sternotomy. RIJ w/Slik intact
ABD: round, soft, no BS
EXT: no edema, +2/4 DP pulses B/L, no femoral bruit, RLE SHAWN wrap intact; right radial A-line intact
: Leon with clear yellow urine
�
A/P: POD #0 s/p CABG x 3 (LOAIZA to LAD, SVG to ramus versus high diagonal, SVG to distal RCA), modified left atrial maze [posterior wall isolation using RF ablation], left atrial appendage exclusion [35mm clip]
JOSE: EF�EF 55-60%, mild TR
- wean and extubate
- will need instruction regarding antibiotic prophylaxis for dental and invasive procedures
�
# acute surgical blood loss anemia-expected
- trend CBC
�
# Hx non-ischemic cardiomyopathy
- resume GDMT as BP permits
# Hx PAF
- on Xarelto @ home
- currently maintaining SR
# Hyperlipidemia
- statin intolerance
- resume�Zetia
[2024-09-28] MEDS: PRAVACHOL PO (17:40)
--- NOTE | 2024-09-28 17:41 | PTCARENOTE ---
Patient received from CV[facility] s/p CABG x 3/MAZE/LAAL. RIJ Cordis present. R radial arterial line - leveled, flushed, and calibrated w/good waveform returned. Epicardial V-wire to pulse generator set to backup rate 50bpm, no spikes noted. L pleural
chest tube to individual pleurevac, mediastinal x 2 to separate collection chamber, both placed to -20cm suction w/no air leaks noted. Leon catheter to gravity. All procedural sites stable. Labs drawn, EKG performed, pcxr obtained. See work list
for full assessment, interventions performed, and intravenous infusions and titrations.
[2024-09-28] MEDS: OFIRMEV 100 IV (17:47)
[2024-09-28 17:59] LABS: Glucose - Point of Care 88 mg/dl (70-99)
[2024-09-28 18:26] LABS: B.E. -1.7 mmol/L; HCO3 24.3 mmol/L (21-28); O2 Saturation % 99.9 % (94-98); PCO2 45 mmHg (35-48); PO2 164 mmHg (83-108); pH 7.34 (7.35-7.45)
[2024-09-28 19:07] LABS: Glucose - Point of Care 92 mg/dl (70-99)
[2024-09-28 19:42] LABS: B.E. -1.8 mmol/L; HCO3 22.1 mmol/L (21-28); Ionized Calcium 1.17 mMOL/L (1.15-1.33); O2 Saturation % 99.6 % (94-98); PCO2 34 mmHg (35-48); PO2 185 mmHg (83-108); Potassium 4.9 mMOL/L (3.5-5.1); pH 7.42 (7.35-7.45)
--- NOTE | 2024-09-28 19:45 | PTCARENOTE ---
assumed care of pt from previous RN. pt awakens to awake, drowsy, MAEE. pt intubated. ETT size 8.0, 25cm at the lip. CPAP/PSV 5/5/40%. POX 98%. R IJ cordis w/ SLIC. R radial a-line. all lines leveled, zeroed, flushed. SR on tele-monitor. temp
epicardial v-wires plugged into pulse generator, w/ backup settings VVI 50/12. CT x3 (mediastinal x2, L pleural) to -20cm wall suction, draining sanguineous drainage. abd s/n, hypoactive BS. hurst catheter draining clear, yellow urine. all surgical
sites stable, CDI. PIV intact. see worklist for complete nursing assessment, interventions, gtt titrations, VS, and I&Os.
[2024-09-28 19:49] LABS: Hematocrit 35.9 % (39.0-52.0); Platelet Count 292 10^3/uL (130-400)
[2024-09-28] MEDS: CALCIUM GLUCONATE 100 IV (19:53)
--- NOTE | 2024-09-28 20:05 | PTCARENOTE ---
RT at bedside. pt extubated at 2004 to 6 L NC.
--- NOTE | 2024-09-28 20:05 | RESPNOTE ---
Pt extubated at 2004 to 6 LPM NC without incident. + vocalization, - stridor. RN at bedside.
[2024-09-28 20:14] LABS: Glucose - Point of Care 103 mg/dl (70-99)
[2024-09-28] MEDS: DILAUDID 0.25 MG IV (20:23)
[2024-09-28] MEDS: TYLENOL 1000 MG PO (21:14)
[2024-09-28] MEDS: NEURONTIN 100 MG PO (21:14)
[2024-09-28] MEDS: LOW STRENGTH ASPIRIN 81 MG PO (21:15)
[2024-09-28] MEDS: ROXICODONE 5 MG PO (21:15)
[2024-09-28] MEDS: SENOKOT-S PO (21:16)
[2024-09-28 22:08] LABS: Glucose - Point of Care 76 mg/dl (70-99)
[2024-09-28] MEDS: ANCEF 5 IV (22:08)
[2024-09-28] MEDS: FLEXERIL 5 MG PO (22:54)
[2024-09-28] MEDS: PACERONE 200 MG PO (22:55)
[2024-09-28 22:59] LABS: Glucose - Point of Care 93 mg/dl (70-99)
[2024-09-29] VITALS (31 sets, daily range): BP systolic 74–123; BP diastolic 44–107; PULSE 74; O2SAT 95; BMI 29.5
--- NOTE | 2024-09-29 | PTCARENOTE ---
pt A&Ox4. SR on tele-monitor. POX 98-100% on [address] drainage WNL. U/O >0.5ml/kg/h. see worklist for VS, I&Os, and gtt titrations.
[2024-09-29 00:07] LABS: Glucose - Point of Care 87 mg/dl (70-99)
[2024-09-29 01:01] LABS: Glucose - Point of Care 92 mg/dl (70-99)
[2024-09-29 02:10] LABS: Glucose - Point of Care 91 mg/dl (70-99)
[2024-09-29] MEDS: DILAUDID 0.5 MG IV (02:52)
[2024-09-29 03:33] LABS: Hematocrit 35.6 % (39.0-52.0); Hemoglobin 11.7 g/dL (13.0-18.0); Mean Corp Hgb Conc. 32.9 g/dL (33.0-37.0); Mean Corpuscular Hgb 30.3 pg (27.0-31.0); Mean Corpuscular Volume 92.2 fL (80.0-94.0); Mean Platelet Volume 10.2 fL (7.4-10.4); Platelet Count 275 10^3/uL (130-400); Red Blood Cell Count 3.86 10^6/uL (4.70-6.10); Red Cell Dist. Width 15.2 % (11.5-14.5); White Blood Cell Count 17.6 10^3/uL (4.8-10.8)
[2024-09-29] MEDS: LR 250 ML IV (03:52)
[2024-09-29 03:57] LABS: Glucose - Point of Care 78 mg/dl (70-99)
[2024-09-29] MEDS: ROXICODONE 5 MG PO ×4 (03:58→19:45)
--- NOTE | 2024-09-29 04:00 | PTCARENOTE ---
no acute changes. VSS. AM labs collected and sent. EKG completed.
[2024-09-29 04:04] LABS: Blood Urea Nitrogen 22 mg/dl (9-20); Calcium 8.9 mg/dl (8.4-10.2); Carbon Dioxide 17 mmol/L (22-30); Chloride 111 mmol/L (98-107); Estimated Creatinine Clearance 49 ml/min; Glucose 93 mg/dl (70-99); Magnesium 2.2 mg/dl (1.6-2.3); Potassium 5.3 mmol/L (3.5-5.1); Sodium 137 mmol/L (135-145); eGFR 46.93
[2024-09-29] MEDS: ANCEF 5 IV ×2 (04:37→13:15)
[2024-09-29] MEDS: SODIUM BICARBONATE 50 MEQ IV (04:37)
[2024-09-29] MEDS: TYLENOL 1000 MG PO ×3 (04:38→21:28)
--- NOTE | 2024-09-29 04:40 | W.PN.CT ---
Today's Communication / Plan
-
-pod #1
-no significant issues overnight, has anxiety
-got total 750 LR postop
-drips: insulin only
-CT otuputs: 2 meds 125/160, L pleur 50/75 in 12/24 hrs
-K 5.3, bicarb 17- got 1 bicarb. Follow K
-Cr stable - 1.6 (preop 1.4-1.6)-follow
-encourage IS, OOB
Assessment / Plan
-
- Multivessel coronary artery disease with unstable angina- s/p CABG x 3 (In situ LOAIZA to LAD, Ao to RSVG to ramus versus high diagonal, Ao to RSVG to distal RCA); Modified left atrial maze [posterior wall isolation using RF ablation]; LAAE [35mm
clip] by Dr. Jefferson on 09/28/24, pod #1
- Intraop JOSE: LVEF preop and postop was 55% with no significant regional wma. He did have a septal prominence that was quite impressive over 2 cm. He did have a mild to moderate degree of mitral valve insufficiency following the pump run that
resolved once he resumed his sinus rhythm. A posterior wall isolation was performed using the encompass clamp and the left atrial appendage was clipped after verifying that it was free of any thrombus or debris preoperatively.
- Hx CAD/RI with ROD to RCA 10/14/19
- CKD stage IIIa (Cr 1.4-1.6 preop)
- Paroxysmal atrial fibrillation- on Xarelto preop
- Hypertension
- Hyperlipidemia
- Chronic mixed ischemic and nonischemic cardiomyopathy (EF previously 20%, then 50% on 09/2017)
- PVCs
- hx orthostasis and syncope
- EtOH use
- Hx smoking
- COPD
- GERD
- R Carpal tunnel syndrome
- Chronic back pain d/t spinal stenosis with prior back surgery
- s/p L knee arthroscopic recent surgery
- Renal stones
- Anxiety
- Acute postop blood loss anemia
- Acute postop atelectasis
- Acute postop hypovolemia with subsequent hypervolemia
Discussed patient care with: Nursing and Care Team
Subjective
-
Date of Service: September 29, 2024
Objective Data
-
PT 16.3 Sec (11.4-14.6) H 09/28/24 15:51
INR 1.28 09/28/24 15:51
APTT 33.6 Sec (23.4-35.0) 09/28/24 15:51
Vital Signs
Vital Signs
Temp Pulse Resp BP Pulse Ox
97.7 F 81 12 112/82 100
09/29/24 02:00 09/29/24 02:00 09/29/24 02:00 09/29/24 02:00 09/29/24 02:00
CT Intake/Output/Weight
09/28/24 09/28/24 09/29/24
06:59 18:59 06:59
Intake Total 104.5 / 104.5 462.2 / 1030.2 568.0 / 1030.2
Output Total 750 / 750 575 / 1175 600 / 1175
Balance -645.5 / -645.5 -112.8 / -144.8 -32.0 / -144.8
SaO2: 100
Physical Exam
-
General: Awake and AOx3
Cardiovascular: Regular rate & rhythm, No Murmurs and Rub
Respiratory: Decreased Breath Sounds
Sternum: Stable
Incision: Clean, Dry and Intact
Extremities: No Edema (1+DPs b/l)
Abdomen: soft, nontender, nondistended, + decreased bowel sounds
Data Reviewed
-
Lab Results: Results Reviewed
Medications: Active Meds Reviewed
Chest X-Ray: Report Reviewed and Image Reviewed
ECG: Report Reviewed and Image Reviewed
[2024-09-29 05:54] LABS: Glucose - Point of Care 81 mg/dl (70-99)
[2024-09-29] MEDS: SPIRIVA RESPIMAT 2.5 MCG 2 PUFF INH (07:24)
[2024-09-29] MEDS: SYMBICORT 80/4.5 MCG INHALER 2 PUFF INH ×2 (07:25→17:29)
--- NOTE | 2024-09-29 07:41 | W.PN.ANS.POP ---
Anesthesia Post Operative
- Anesthesia Post Op Note
Vital Signs Stable-See Nursing Note: Yes
Airway Patent: Yes
Adequate Pain Control: Yes
Change in Mental Status: No
Current Postoperative Nausea & Vomiting: No
Anesthesia Complications: No
General Anesthetic Recall: No
Unplanned Admission: No
Post Op Hydration Adequate: Yes
--- NOTE | 2024-09-29 08:00 | PTCARENOTE ---
Patient received from Denia RN at 0800; AAOx3, responds spontaneously to RN and follows commands; Anxious at times; VSS; NSR on monitor; Distant heart sounds; Epicardial V-wire with temporary pacemaker settings VVI 50/12/0.8; +2 radial and DP
pulses; Shallow respirations; Lung sounds diminished at bases; CTx3 - connected to -20 cm wall suction draining serosanguineous drainage - no tidaling, crepitus, or air leak noted; Clear, yellow urine draining from hurst catheter; Surgical incisions
CDI; PIVx1 - #20 left wrist; RIJ Cordis with KVO infusing; Insulin infusing - see nursing flowsheets for further details; See nursing documentation for further information
[2024-09-29 08:07] LABS: Glucose - Point of Care 76 mg/dl (70-99)
[2024-09-29] MEDS: LIDOCAINE 4% PATCH 1 PATCH TOPICAL (08:07)
[2024-09-29] MEDS: FOLVITE 1 MG PO (08:08)
[2024-09-29] MEDS: VITAMIN B1 100 MG PO ×2 (08:08→19:41)
[2024-09-29] MEDS: ASPIR LOW (ENTERIC COATED) 81 MG PO (08:08)
[2024-09-29] MEDS: MAGNESIUM OXIDE 500 MG PO ×2 (08:08→19:41)
[2024-09-29] MEDS: PLAVIX 75 MG PO (08:08)
[2024-09-29] MEDS: PROTONIX 40 MG PO (08:08)
[2024-09-29] MEDS: NEURONTIN 100 MG PO ×3 (08:08→21:31)
[2024-09-29] MEDS: ZETIA 10 MG PO (08:09)
[2024-09-29] MEDS: SENOKOT-S 1 TABLET PO ×2 (08:09→19:41)
[2024-09-29] MEDS: LOPRESSOR PO (08:09)
[2024-09-29] MEDS: PACERONE 200 MG PO ×3 (08:09→21:28)
[2024-09-29] MEDS: BACTROBAN 2% OINTMENT 1 APPLIC NASAL ×2 (08:10→19:41)
[2024-09-29 09:44] LABS: Glucose - Point of Care 140 mg/dl (70-99)
--- NOTE | 2024-09-29 11:27 | CM ---
Chart reviewed. Patient is independent of ADLS, lives with his in a split level house, 7 TING, 0 DME. Plan is for the patient to return home with CT Transitional RN. CM to follow
[2024-09-29 11:55] LABS: Glucose - Point of Care 95 mg/dl (70-99)
--- NOTE | 2024-09-29 12:30 | PTCARENOTE ---
Patient ambulating in hallways with cardiac rehab; L pleural CT removed by RN at bedside - VSS and no complications noted; PRN PO Oxycodone given accordingly for pain; Patient resting comfortably in bed
[2024-09-29 12:33] LABS: Blood Urea Nitrogen 22 mg/dl (9-20); Calcium 8.6 mg/dl (8.4-10.2); Carbon Dioxide 21 mmol/L (22-30); Chloride 107 mmol/L (98-107); Estimated Creatinine Clearance 46 ml/min; Glucose 105 mg/dl (70-99); Magnesium 2.2 mg/dl (1.6-2.3); Potassium 4.6 mmol/L (3.5-5.1); Sodium 135 mmol/L (135-145); eGFR 43.64
[2024-09-29] MEDS: FERRLECIT 110 MG IV (13:14)
[2024-09-29 13:42] LABS: Glucose - Point of Care 73 mg/dl (70-99)
--- NOTE | 2024-09-29 14:42 | W.PN.CARDCBS ---
Addendum entered and electronically signed by Leo Rogers MD 09/29/24 15:09:
I saw and examined the patient.
The UNIVERSAL WINDING MACHINE OPERATOR or PA's note was reviewed and I agree with the note.
Comment: General: Well developed, well nourished in NAD.
Neck: Supple, no JVD, HJR, carotids +2 B/L, no bruits bilaterally.
Heart: Non displaced PMI, RRR, no murmurs, No S3, S4, no rubs.
Lungs: Scattered rhonchi
Sternal dressings noted
Extremities: No clubbing, cyanosis or edema bilaterally.
Neuro: Grossly nonfocal, awake, alert and oriented x3.
Stable cardiology status status post CABG. Remains in sinus rhythm
Original Note:
Today's Communication / Plan
-
continue post op care
in SR
Impression / Plan
-
PCP: Nikki Subramanian UNIVERSAL WINDING MACHINE OPERATOR
Cardiology: Dr. Ирина Sun
Impression:
Angina with progressive coronary artery disease by catheterization 09/23/2024
mid RCA hazy 70 to 80% at the proximal edge of the prior stent. Proximal LAD with significant disease 80% with concern regarding another branch vessel either high diagonal or ramus overlapping this area
s/p 3.0 mm Xience to mid RCA 10/14/19
s/p CABGx3 In situ LOAIZA to LAD, Ao to RSVG to ramus versus high diagonal, Ao to RSVG to distal RCA, MAZE, SUDHA clip 09/28/24
Hyperlipidemia with statin intolerance to Lipitor and Crestor currently on Zetia. LDL 62
Tobacco use recently
Paroxysmal Afib
CKD 3b
Improved mixed ischemic and nonischemic CM, EF previously 20%, then 50% 09/2017, then 60-65% by echo 02/28/21, Echo 09/23/24 52%
Frequent PVCs
Hypertension
h/o orthostasis and syncope
Degenerative disc disease
Chronic back pain with history of spinal stenosis and prior back surgery
Alcohol use disorder
Exercise nuclear stress test 10/13/23: Patient completed 6 minutes Marco Antonio protocol, 7 METS activity, 103% MPHR, myocardial perfusion imaging normal, EF 52%
Echo 10/24/17: shows EF 50% with no significant valvular disease
Echo 02/28/21: EF 60-65%, mild basal inferolateral and basal inferior hypokinesis, mild conc LVH, normal diastolic function, mild MR
Echo 10/09/23: EF 50%, basal inferior and basal inferoseptum are akinetic, moderate concentric LVH, normal RV size and function
ECHO 12/11/23: EF 55 to 60%, severe hypokinesis of basal inferior wall, little significant change compared to prior
ECHO 09/23/24: EF 52%, basal inferior, basal and mid inferolateral, and basal inferoseptal tolentino appear hypokinetic, mild MR, trace AR
Plan:
-s/p CABGx3 In situ LOAIZA to LAD, Ao to RSVG to ramus versus high diagonal, Ao to RSVG to distal RCA, MAZE, SUDHA clip 09/28/24
-off pressors
-reports L 3-5th finger numbness intermittently. likely postop nerve related. good perfusion, fingers warm. will follow.
-Cr up to 1.7, was ~1.5 preop, follow
- In sinus rhythm on review of telemetry overnight. Continue beta-az, amiodarone
-Continue aspirin, Plavix. Hemoglobin 11.7
-Eventually resume OAC as status post left atrial appendage clip, could be considered for eventual discontinuation of anticoagulation
-Prior to admission was on regimen of Coreg, Entresto, amlodipine, Lasix
-d/w nursing
-d/w CT surgery UNIVERSAL WINDING MACHINE OPERATOR
Progress Note - Corrections Corporal
Subjective
Date of Service: September 29, 2024
Reports left 3rd through 5th finger numbness, intermittent. Reports continues with some postoperative pain
Objective
Labs:
09/29/24 03:10
09/29/24 11:38
Labs
Hgb 11.7 g/dL (13.0-18.0) L 09/29/24 03:10
Hct 35.6 % (39.0-52.0) L 09/29/24 03:10
Plt Count 275 10^3/uL (130-400) 09/29/24 03:10
PT 16.3 Sec (11.4-14.6) H 09/28/24 15:51
INR 1.28 09/28/24 15:51
APTT 33.6 Sec (23.4-35.0) 09/28/24 15:51
Sodium 135 mmol/L (135-145) 09/29/24 11:38
Potassium 4.6 mmol/L (3.5-5.1) 09/29/24 11:38
BUN 22 mg/dl (9-20) H 09/29/24 11:38
Creatinine 1.7 mg/dL (0.7-1.3) H 09/29/24 11:38
Glucose 105 mg/dl (70-99) H 09/29/24 11:38
Vital Signs and I&O:
Vital Signs
Temp Pulse Resp BP Pulse Ox
97.1 F 75 16 119/107 94
09/29/24 11:00 09/29/24 14:30 09/29/24 13:00 09/29/24 14:00 09/29/24 11:00
Vital Signs
Temp Pulse Resp BP Pulse Ox
97.1 F 75 16 119/107 94
09/29/24 11:00 09/29/24 14:30 09/29/24 13:00 09/29/24 14:00 09/29/24 11:00
Intake & Output
09/27/24 09/28/24 09/29/24 09/30/24
07:59 07:59 07:59 07:59
Intake Total 480 / 480 104.5 / 114.0 1351.2 / 1351.2 73 / 73
Output Total 750 / 750 1565 / 1565 265 / 265
Balance 480 / 480 -645.5 / -636.0 -213.8 / -213.8 -192 / -192
Physical Exam
Physical Exam
GEN: No distress, awake, alert, oriented x3. sitting in chair
HEENT: supple, anicteric, mmm, eomi
LUNGS: CTA B/L, no wheezes/rales
CV: Reg, S1/S2, no murmur
ABD: soft, BS+, NT/ND
EXT: No cyanosis, clubbing. trace edema of B/L LE
NEURO: Gross non-focal
SKIN: Warm, pink, dry. No rash. Sternotomy dressing c/d/i.
--- NOTE | 2024-09-29 15:00 | PTCARENOTE ---
Patient complaining of intermittent numbness/tingling in hands as well as new coldness/paleness in 1st and 3rd fingers on right hand today - KASSI Reno and FLAVIO Palomino notified and aware; No further orders at this time; Patient's hands
wrapped in warm blanket
[2024-09-29] MEDS: NSS IV (15:02)
[2024-09-29 15:17] LABS: Glucose - Point of Care 86 mg/dl (70-99)
[2024-09-29] MEDS: ProAmatine 5 MG PO (17:11)
[2024-09-29] MEDS: PRAVACHOL 10 MG PO (17:11)
[2024-09-29] MEDS: ProAmatine PO (18:03)
--- NOTE | 2024-09-29 18:03 | PTCARENOTE ---
Patient's BP low - 80's/40's-50's; Patient asymptomatic with ambulation; CVNP Darling Palomino notified and PO Midodrine started for patient; BP now 105/66
--- NOTE | 2024-09-29 20:00 | PTCARENOTE ---
assumed care of pt from previous RN. pt A&Ox4, resting in chair at time of assessment. SR on tele-monitor. temp epicardial v-wires plugged into pulse generator, w/ backup settings 50/12/0.8. POX 97% on RA. CT x2 (mediastinal x2) to -20cm wall
suction, draining sanguineous drainage. abd s/n, +BS. hurst catheter draining clear, yellow urine.all surgical sites stable, CDI. R IJ Cordis w/ KVO. PIV intact. see worklist for complete nursing assessment, interventions, VS, and I&Os.
[2024-09-29] MEDS: LOPRESSOR 12.5 MG PO (21:28)
[2024-09-30] VITALS (20 sets, daily range): BP systolic 81–125; BP diastolic 54–89; PULSE 70; O2SAT 91–95
--- NOTE | 2024-09-30 | PTCARENOTE ---
assessment remains unchanged. VSS. CT drainage WNL. U/O >0.5ml/kg/h.
[2024-09-30] MEDS: FLEXERIL PO (03:47)
[2024-09-30] MEDS: ROXICODONE 5 MG PO ×3 (03:47→22:04)
--- NOTE | 2024-09-30 04:00 | PTCARENOTE ---
no acute changes. VSS. AM labs collected and sent. pt assisted OOB to chair.
--- NOTE | 2024-09-30 04:18 | W.PN.CT ---
Today's Communication / Plan
-
-pod #2
-no significant issues overnight
-CT output: 2 meds 60/185 in 12/24 hrs
-follow Cr - 1.6 today- stable (1.6-1.7 on 09/29 and preop 1.4-1.6). UO has been good 35-100 per hr overnight
-wt is up 4 kg from preop - diurese
-PACs this am - gave Amio bolus
-current meds (ASA, Plavix, Pravachol, Zetia, Midodrine, Lopressor, Amio, Protonix)
-encourage IS, OOB
Assessment / Plan
-
- Multivessel coronary artery disease with unstable angina- s/p CABG x 3 (In situ LOAIZA to LAD, Ao to RSVG to ramus versus high diagonal, Ao to RSVG to distal RCA); Modified left atrial maze [posterior wall isolation using RF ablation]; LAAE [35mm
clip] by Dr. Jefferson on 09/28/24, pod #2
- Intraop JOSE: LVEF preop and postop was 55% with no significant regional wma. He did have a septal prominence that was quite impressive over 2 cm. He did have a mild to moderate degree of mitral valve insufficiency following the pump run that
resolved once he resumed his sinus rhythm. A posterior wall isolation was performed using the encompass clamp and the left atrial appendage was clipped after verifying that it was free of any thrombus or debris preoperatively.
- Hx CAD/MO with ROD to RCA 10/14/19
- CKD stage IIIa (Cr 1.4-1.6 preop)
- Paroxysmal atrial fibrillation- on Xarelto preop
- Hypertension
- Hyperlipidemia
- Chronic mixed ischemic and nonischemic cardiomyopathy (EF previously 20%, then 50% on 09/2017)
- PVCs
- hx orthostasis and syncope
- EtOH use
- Hx smoking
- COPD
- GERD
- R Carpal tunnel syndrome
- Chronic back pain d/t spinal stenosis with prior back surgery
- s/p L knee arthroscopic recent surgery
- Renal stones
- Anxiety
- Acute postop blood loss anemia
- Acute postop atelectasis
- Acute postop hypovolemia with subsequent hypervolemia
Discussed patient care with: Nursing and Care Team
Subjective
-
Date of Service: September 30, 2024
Objective Data
-
PT 16.3 Sec (11.4-14.6) H 09/28/24 15:51
INR 1.28 09/28/24 15:51
APTT 33.6 Sec (23.4-35.0) 09/28/24 15:51
Vital Signs
Vital Signs
Temp Pulse Resp BP Pulse Ox
97.9 F 74 16 101/71 99
09/30/24 00:00 09/30/24 02:00 09/30/24 00:00 09/30/24 00:09 09/30/24 00:00
CT Intake/Output/Weight
09/29/24 09/29/24 09/30/24
06:59 18:59 06:59
Intake Total 878.8 / 1351.2 723.4 / 783.4 60 / 783.4
Output Total 915 / 1565 520 / 1005 485 / 1005
Balance -36.2 / -213.8 203.4 / -221.6 -425 / -221.6
SaO2: 99
Physical Exam
-
General: Awake and AOx3
Cardiovascular: Regular rate & rhythm, No Murmurs and no Rub
Respiratory: Decreased Breath Sounds
Sternum: Stable
Incision: Clean, Dry and Intact
Abdomen: soft, nontender, nondistended, + decreased bowel sounds
Extremities: No Edema (1+DPs b/l)
Data Reviewed
-
Lab Results: Results Reviewed
Medications: Active Meds Reviewed
Chest X-Ray: Report Reviewed and Image Reviewed
ECG: Report Reviewed and Image Reviewed
[2024-09-30 04:21] LABS: Hematocrit 31.8 % (39.0-52.0); Hemoglobin 10.3 g/dL (13.0-18.0); Mean Corp Hgb Conc. 32.4 g/dL (33.0-37.0); Mean Corpuscular Hgb 30.2 pg (27.0-31.0); Mean Corpuscular Volume 93.3 fL (80.0-94.0); Mean Platelet Volume 10.4 fL (7.4-10.4); Platelet Count 228 10^3/uL (130-400); Red Blood Cell Count 3.41 10^6/uL (4.70-6.10); Red Cell Dist. Width 15.5 % (11.5-14.5); White Blood Cell Count 13.7 10^3/uL (4.8-10.8)
[2024-09-30 04:48] LABS: Blood Urea Nitrogen 23 mg/dl (9-20); Calcium 8.2 mg/dl (8.4-10.2); Carbon Dioxide 23 mmol/L (22-30); Chloride 106 mmol/L (98-107); Estimated Creatinine Clearance 49 ml/min; Glucose 108 mg/dl (70-99); Magnesium 2.1 mg/dl (1.6-2.3); Potassium 4.3 mmol/L (3.5-5.1); Sodium 134 mmol/L (135-145); eGFR 46.93
[2024-09-30] MEDS: CORDARONE 103 MG IV (05:32)
[2024-09-30] MEDS: TYLENOL 1000 MG PO ×2 (06:09→13:17)
[2024-09-30] MEDS: LIDOCAINE 4% PATCH TOPICAL (07:46)
[2024-09-30] MEDS: FOLVITE 1 MG PO (07:47)
[2024-09-30] MEDS: VITAMIN B1 100 MG PO ×2 (07:47→20:08)
[2024-09-30] MEDS: PROTONIX 40 MG PO (07:47)
[2024-09-30] MEDS: PACERONE 200 MG PO ×3 (07:47→22:04)
[2024-09-30] MEDS: MAGNESIUM OXIDE 500 MG PO ×2 (07:47→20:08)
[2024-09-30] MEDS: ProAmatine 5 MG PO ×3 (07:47→18:29)
[2024-09-30] MEDS: NEURONTIN 100 MG PO ×3 (07:47→22:04)
[2024-09-30] MEDS: SENOKOT-S 1 TABLET PO (07:47)
[2024-09-30] MEDS: BACTROBAN 2% OINTMENT 1 APPLIC NASAL ×2 (07:48→20:08)
[2024-09-30] MEDS: ZETIA 10 MG PO (07:49)
--- NOTE | 2024-09-30 08:21 | W.PN.UPDATE ---
Update Note
Progress Note Update
Patient has not required pacing wires. There has been no bradycardia, arrhythmias, complete heart block, or significant pauses.
Site was cleansed with CHG thoroughly
1 ventricular epicardial pacing wires were pulled/cut at the skin. Bedrest x1 hour and VS [id number] x 4.
Will DC the mediastinal CTs in one hour if there is no significant drainage.
Kathi MA
Cardiac Surgery
[2024-09-30] MEDS: SPIRIVA RESPIMAT 2.5 MCG 2 PUFF INH (08:22)
[2024-09-30] MEDS: SYMBICORT 80/4.5 MCG INHALER 2 PUFF INH ×2 (08:22→19:42)
--- NOTE | 2024-09-30 08:33 | PTCARENOTE ---
Patient received from tax director RN; AAOx3, responds spontaneously to RN and follows commands; Anxious at times; VSS; NSR on monitor; Epicardial V-wire with temporary pacemaker settings VVI 50/12/0.8 - pulled by FLAVIO Lorenz at 0755; Trace B/L LE
edema; +1 radial and +2 DP pulses; SpO2 92-96%% on RA; Lung sounds clear; IS 4000 ml; Occasional, productive cough - thick ta, white sputum; CTx2 - connected to -20 cm wall suction draining serosanguineous drainage - no tidaling, crepitus, or air
leak noted; Clear, yellow urine draining from hurst catheter; Surgical incisions CDI; PIVx1 - #20 left wrist; RIJ Cordis with KVO infusing; Patient currently laying flat in bed, Q15 minute vital signs, no signs of bleeding at epicardial wire site;
See nursing documentation for further information
[2024-09-30] MEDS: ASPIR LOW (ENTERIC COATED) 81 MG PO (08:51)
[2024-09-30] MEDS: LASIX 40 MG IV (08:51)
[2024-09-30] MEDS: PLAVIX 75 MG PO (08:51)
[2024-09-30] MEDS: LOPRESSOR 12.5 MG PO ×2 (09:07→20:08)
--- NOTE | 2024-09-30 09:14 | PTCARENOTE ---
Chest tubes removed by RN at bedside - no complications noted, VSS; Vaseline gauze, 4x4, and ABD applied to sites; IV Lasix 40 mg ordered and given
[2024-09-30] MEDS: MILK OF MAGNESIA 30 ML PO (11:18)
--- NOTE | 2024-09-30 11:58 | W.PN.CARDCBS ---
Addendum entered and electronically signed by Oscar Arias MD 09/30/24 13:29:
I saw and examined the patient.
The Shear Operator Helper's note was reviewed and I agree with the note.
Comment:
GEN: No distress, awake, Ox3
HEENT: supple, anicteric, mmm
LUNGS: CTA, no wheezes/rales
CV: Reg, S1/S2, no murmur
ABD: soft, BS+, NT/ND
EXT: No edema
NEURO: Gross non-focal
SKIN: sternotomy
PLan:
Overall doing well status post CABG/maze/left atrial clip.
Hemoglobin stable at 10.3. Remains in sinus rhythm.
Continue amiodarone, metoprolol, aspirin, and Plavix.
Creatinine at 1.6 and stable.
Original Note:
Today's Communication / Plan
-
continue post op care
ambulate
eventual OAC
bowel regimen
Impression / Plan
-
PCP: Nikki Subramanian SECURITY INCIDENT RESPONSE SPECIALIST
Cardiology: Dr. Ирина Sun
Impression:
Angina with progressive coronary artery disease by catheterization 09/23/2024
mid RCA hazy 70 to 80% at the proximal edge of the prior stent. Proximal LAD with significant disease 80% with concern regarding another branch vessel either high diagonal or ramus overlapping this area
s/p 3.0 mm Xience to mid RCA 10/14/19
s/p CABGx3 In situ LOAIZA to LAD, Ao to RSVG to ramus versus high diagonal, Ao to RSVG to distal RCA, MAZE, SUDHA clip 09/28/24
Hyperlipidemia with statin intolerance to Lipitor and Crestor currently on Zetia. LDL 62
Tobacco use recently
Paroxysmal Afib
CKD 3b
Improved mixed ischemic and nonischemic CM, EF previously 20%, then 50% 09/2017, then 60-65% by echo 02/28/21, Echo 09/23/24 52%
Frequent PVCs
Hypertension
h/o orthostasis and syncope
Degenerative disc disease
Chronic back pain with history of spinal stenosis and prior back surgery
Alcohol use disorder
Exercise nuclear stress test 10/13/23: Patient completed 6 minutes Marco Antonio protocol, 7 METS activity, 103% MPHR, myocardial perfusion imaging normal, EF 52%
Echo 10/24/17: shows EF 50% with no significant valvular disease
Echo 02/28/21: EF 60-65%, mild basal inferolateral and basal inferior hypokinesis, mild conc LVH, normal diastolic function, mild MR
Echo 10/09/23: EF 50%, basal inferior and basal inferoseptum are akinetic, moderate concentric LVH, normal RV size and function
ECHO 12/11/23: EF 55 to 60%, severe hypokinesis of basal inferior wall, little significant change compared to prior
ECHO 09/23/24: EF 52%, basal inferior, basal and mid inferolateral, and basal inferoseptal tolentino appear hypokinetic, mild MR, trace AR
Plan:
-s/p CABGx3 In situ LOAIZA to LAD, Ao to RSVG to ramus versus high diagonal, Ao to RSVG to distal RCA, MAZE, SUDHA clip 09/28/24
-doing well
-ambulatory in halls.
-major complaint constipation. continue bowel regimen
-in SR on review of tele. received IV amio bolus overnight for PACs. continue BB/po amio.
-continue asa, plavix. hgb 10.3.
-Eventually resume OAC. as status post left atrial appendage clip, could be considered for eventual discontinuation of anticoagulation
-Cr stable at 1.6. diurese.
-Prior to admission was on regimen of Coreg, Entresto, amlodipine, Lasix. resume as able post op
-d/w nursing
-d/w CT surgery SECURITY INCIDENT RESPONSE SPECIALIST
Progress Note - Clinical Tech
Subjective
Date of Service: September 30, 2024
reports discomfort and breathing improved s/p CT removal. c/o constipation
Objective
Labs:
09/30/24 03:54
09/30/24 03:54
Labs
Hgb 10.3 g/dL (13.0-18.0) L 09/30/24 03:54
Hct 31.8 % (39.0-52.0) L 09/30/24 03:54
Plt Count 228 10^3/uL (130-400) 09/30/24 03:54
PT 16.3 Sec (11.4-14.6) H 09/28/24 15:51
INR 1.28 09/28/24 15:51
APTT 33.6 Sec (23.4-35.0) 09/28/24 15:51
Sodium 134 mmol/L (135-145) L 09/30/24 03:54
Potassium 4.3 mmol/L (3.5-5.1) 09/30/24 03:54
BUN 23 mg/dl (9-20) H 09/30/24 03:54
Creatinine 1.6 mg/dL (0.7-1.3) H 09/30/24 03:54
Glucose 108 mg/dl (70-99) H 09/30/24 03:54
Vital Signs and I&O:
Vital Signs
Temp Pulse Resp BP Pulse Ox
98.6 F 71 16 110/89 93
09/30/24 07:55 09/30/24 11:35 09/30/24 08:47 09/30/24 09:25 09/30/24 08:47
Vital Signs
Temp Pulse Resp BP Pulse Ox
98.6 F 71 16 110/89 93
09/30/24 07:55 09/30/24 11:35 09/30/24 08:47 09/30/24 09:25 09/30/24 08:47
Intake & Output
09/28/24 09/29/24 09/30/24 10/01/24
07:59 07:59 07:59 07:59
Intake Total 104.5 / 114.0 1351.2 / 1351.2 833.2 / 953.2 130 / 130
Output Total 750 / 750 1565 / 1565 1205 / 1205 680 / 680
Balance -645.5 / -636.0 -213.8 / -213.8 -371.8 / -251.8 -550 / -550
Physical Exam
Physical Exam
GEN: No distress, awake, alert, oriented x3
HEENT: supple, anicteric, mmm, eomi
LUNGS: CTA B/L, no wheezes/rales
CV: Reg, S1/S2, no murmur
ABD: soft, BS+, NT/ND
EXT: No cyanosis, clubbing. trace edema of B/L LE
NEURO: Gross non-focal
SKIN: Warm, pink, dry. No rash. Sternotomy incision c/d/i
--- NOTE | 2024-09-30 12:30 | PTCARENOTE ---
Chest tubes removed at bedside by RN - VSS and no complications noted; Leon catheter removed - DTV; PRN Milk of magnesia given for patient complaints of constipation as per patient request; Patient ambulating in hallways with RN
[2024-09-30] MEDS: FERRLECIT 110 MG IV (13:17)
[2024-09-30] MEDS: NSS IV (13:53)
--- NOTE | 2024-09-30 15:27 | CM ---
Chart reviewed. Patient is independent of ADLS, lives with his in a split level, 7 TING, 0 DME. Plan is for the patient to return home with CT Transitional RN. CM to follow
[2024-09-30] MEDS: DULCOLAX 10 MG RECTAL (16:50)
--- NOTE | 2024-09-30 17:02 | PTCARENOTE ---
Pt reassessed. AAOx3. Denying pain. SaO2 94% on room air. Sinus rhythm on hall monitor. MAP > 65. Right IJ with KVO. Pt walked with RN in hallways 4 total times today. Pt with poor appetite. Leon removed. Pt voiding clear yellow urine. No
bowel movement observed. Milk of mag administered earlier today without effect. PRN Dulcolax administered.
[2024-09-30] MEDS: PRAVACHOL PO (18:29)
[2024-09-30] MEDS: SENOKOT-S PO (20:08)
[2024-09-30 21:30] LABS: Glucose - Point of Care 140 mg/dl (70-99)
--- NOTE | 2024-09-30 23:38 | PTCARENOTE ---
Received patient as a transfer from [facility] into room 2241. Patient ambulates w/ standby assist in room, and denies any dizziness. Tele monitor shows SR. VSS, and sating 100% RA. Denies any SOB. Patient c/o b/l chest discomfort and described it as
'sore'. Pt rated it 10/05. BP 111/67. EKG obtained showing NSR. Thuy SOLITARIO aware. PA instructed RN to administer PRN 5mg of Roxicodone--see MAR for further details. Sternal precautions maintained. Call cancino within reach.
[2024-10-01] VITALS (7 sets, daily range): BP systolic 91–102; BP diastolic 46–69; O2SAT 98; BMI 29.6
[2024-10-01] MEDS: TYLENOL PO (00:06)
[2024-10-01] MEDS: TYLENOL 650 MG PO (02:39)
[2024-10-01 03:12] LABS: Hematocrit 32.4 % (39.0-52.0); Hemoglobin 10.8 g/dL (13.0-18.0); Mean Corp Hgb Conc. 33.3 g/dL (33.0-37.0); Mean Corpuscular Hgb 30.3 pg (27.0-31.0); Mean Corpuscular Volume 90.8 fL (80.0-94.0); Mean Platelet Volume 10.1 fL (7.4-10.4); Platelet Count 287 10^3/uL (130-400); Red Blood Cell Count 3.57 10^6/uL (4.70-6.10); Red Cell Dist. Width 15.4 % (11.5-14.5); White Blood Cell Count 15.3 10^3/uL (4.8-10.8)
[2024-10-01 03:28] LABS: Blood Urea Nitrogen 22 mg/dl (9-20); Calcium 8.5 mg/dl (8.4-10.2); Carbon Dioxide 25 mmol/L (22-30); Chloride 105 mmol/L (98-107); Estimated Creatinine Clearance 52 ml/min; Glucose 98 mg/dl (70-99); Magnesium 2.6 mg/dl (1.6-2.3); Potassium 4.5 mmol/L (3.5-5.1); Sodium 135 mmol/L (135-145); eGFR 50.71
[2024-10-01] MEDS: SYMBICORT 80/4.5 MCG INHALER 2 PUFF INH (08:22)
[2024-10-01] MEDS: SPIRIVA RESPIMAT 2.5 MCG 2 PUFF INH (08:22)
[2024-10-01] MEDS: TYLENOL 1000 MG PO (08:31)
[2024-10-01] MEDS: ROXICODONE 5 MG PO ×2 (08:31→14:13)
[2024-10-01] MEDS: PROTONIX 40 MG PO (08:32)
[2024-10-01] MEDS: VITAMIN B1 100 MG PO (08:32)
[2024-10-01] MEDS: PLAVIX 75 MG PO (08:32)
[2024-10-01] MEDS: ZETIA 10 MG PO (08:35)
[2024-10-01] MEDS: MAGNESIUM OXIDE 500 MG PO (08:35)
[2024-10-01] MEDS: PACERONE 200 MG PO (08:35)
[2024-10-01] MEDS: ProAmatine 5 MG PO ×2 (08:35→14:13)
[2024-10-01] MEDS: ASPIR LOW (ENTERIC COATED) 81 MG PO (08:36)
[2024-10-01] MEDS: FOLVITE 1 MG PO (08:36)
[2024-10-01] MEDS: NEURONTIN PO (08:37)
[2024-10-01] MEDS: LIDOCAINE 4% PATCH TOPICAL (08:37)
[2024-10-01] MEDS: BACTROBAN 2% OINTMENT 1 APPLIC NASAL (08:37)
[2024-10-01] MEDS: SENOKOT-S PO (08:38)
--- NOTE | 2024-10-01 08:46 | W.PN.CT ---
Today's Communication / Plan
-
-pod #3
-doing well, no issues overnight, ambulates without issues, wants to go home
-Cr is stable - 1.5
-weaned off O2 -pOx 100% on RA
-d/c Cordis
-possible d/c home soon
Assessment / Plan
-
- Multivessel coronary artery disease with unstable angina- s/p CABG x 3 (In situ LOAIZA to LAD, Ao to RSVG to ramus versus high diagonal, Ao to RSVG to distal RCA); Modified left atrial maze [posterior wall isolation using RF ablation]; LAAE [35mm
clip] by Dr. Jefferson on 09/28/24, pod #3
- Intraop JOSE: LVEF preop and postop was 55% with no significant regional wma. He did have a septal prominence that was quite impressive over 2 cm. He did have a mild to moderate degree of mitral valve insufficiency following the pump run that
resolved once he resumed his sinus rhythm. A posterior wall isolation was performed using the encompass clamp and the left atrial appendage was clipped after verifying that it was free of any thrombus or debris preoperatively.
- Hx CAD/PA with ROD to RCA 10/14/19
- CKD stage IIIa (Cr 1.4-1.6 preop)
- Paroxysmal atrial fibrillation- on Xarelto preop
- Hypertension
- Hyperlipidemia
- Chronic mixed ischemic and nonischemic cardiomyopathy (EF previously 20%, then 50% on 09/2017)
- PVCs
- hx orthostasis and syncope
- EtOH use
- Hx smoking
- COPD
- GERD
- R Carpal tunnel syndrome
- Chronic back pain d/t spinal stenosis with prior back surgery
- s/p L knee arthroscopic recent surgery
- Renal stones
- Anxiety
- Acute postop blood loss anemia
- Acute postop atelectasis
- Acute postop hypovolemia with subsequent hypervolemia
Discussed patient care with: Nursing and Care Team
Subjective
-
Date of Service: October 01, 2024
Objective Data
-
Lab Results
10/01/24 02:46
10/01/24 02:46
PT 16.3 Sec (11.4-14.6) H 09/28/24 15:51
INR 1.28 09/28/24 15:51
APTT 33.6 Sec (23.4-35.0) 09/28/24 15:51
Vital Signs
Vital Signs
Temp Pulse Resp BP Pulse Ox
98.5 F 78 16 91/68 98
10/01/24 06:49 10/01/24 08:35 10/01/24 08:27 10/01/24 08:35 10/01/24 08:27
CT Intake/Output/Weight
09/30/24 10/01/24 10/01/24
18:59 06:59 18:59
Intake Total 860 / 1340 480 / 1340
Output Total 1475 / 1775 300 / 1775
Balance -615 / -435 180 / -435
SaO2: 98
Physical Exam
-
General: Awake and AOx3
Cardiovascular: Regular rate & rhythm, No Murmurs and No Rub
Respiratory: Decreased Breath Sounds
Sternum: Stable
Incision: Clean, Dry and Intact
Extremities: No Edema
Abdomen: soft, nontender, nondistended, + bowel sounds
Data Reviewed
-
Lab Results: Results Reviewed
Medications: Active Meds Reviewed
Chest X-Ray: Report Reviewed and Image Reviewed
ECG: Report Reviewed and Image Reviewed
--- NOTE | 2024-10-01 08:55 | W.PN.CARDCBS ---
Addendum entered and electronically signed by Oscar Arias MD 10/01/24 11:02:
I saw and examined the patient.
The Sign Language Translator's note was reviewed and I agree with the note.
Comment:
GEN: No distress, awake, Ox3
HEENT: supple, anicteric, mmm
LUNGS: CTA, no wheezes/rales
CV: Reg, S1/S2, no murmur
ABD: soft, BS+, NT/ND
EXT: No edema
NEURO: Gross non-focal
SKIN: sternotomy
Plan:
Doing very well status post CABG. Remains in sinus rhythm.
Would transition back to Coreg as outpatient upon discharge. Would hold amlodipine and Entresto until blood pressure improves.
Upon discharge would transfer to aspirin and Xarelto.
If stable ambulating okay for discharge
Original Note:
Today's Communication / Plan
-
Continue postoperative care
Aspirin, Xarelto
Cardiac rehab
Outpatient cardiac follow-up arranged
Impression / Plan
-
PCP: Nikki Subramanian [facility]
Cardiology: Dr. Ирина Sun
Impression:
Angina with progressive coronary artery disease by catheterization 09/23/2024
mid RCA hazy 70 to 80% at the proximal edge of the prior stent. Proximal LAD with significant disease 80% with concern regarding another branch vessel either high diagonal or ramus overlapping this area
s/p 3.0 mm Xience to mid RCA 10/14/19
s/p CABGx3 In situ LOAIZA to LAD, Ao to RSVG to ramus versus high diagonal, Ao to RSVG to distal RCA, MAZE, SUDHA clip 09/28/24
Hyperlipidemia with statin intolerance to Lipitor and Crestor currently on Zetia. LDL 62
Tobacco use recently
Paroxysmal Afib
CKD 3b
Improved mixed ischemic and nonischemic CM, EF previously 20%, then 50% 09/2017, then 60-65% by echo 02/28/21, Echo 09/23/24 52%
Frequent PVCs
Hypertension
h/o orthostasis and syncope
Degenerative disc disease
Chronic back pain with history of spinal stenosis and prior back surgery
Alcohol use disorder
Exercise nuclear stress test 10/13/23: Patient completed 6 minutes Marco Antonio protocol, 7 METS activity, 103% MPHR, myocardial perfusion imaging normal, EF 52%
Echo 10/24/17: shows EF 50% with no significant valvular disease
Echo 02/28/21: EF 60-65%, mild basal inferolateral and basal inferior hypokinesis, mild conc LVH, normal diastolic function, mild MR
Echo 10/09/23: EF 50%, basal inferior and basal inferoseptum are akinetic, moderate concentric LVH, normal RV size and function
ECHO 12/11/23: EF 55 to 60%, severe hypokinesis of basal inferior wall, little significant change compared to prior
ECHO 09/23/24: EF 52%, basal inferior, basal and mid inferolateral, and basal inferoseptal tolentino appear hypokinetic, mild MR, trace AR
Plan:
-s/p CABGx3 In situ LOAIZA to LAD, Ao to RSVG to ramus versus high diagonal, Ao to RSVG to distal RCA, MAZE, SUDHA clip 09/28/24
-doing well
-In sinus rhythm on review of telemetry overnight. Continue beta-az/p.o. Amio
-Currently on aspirin, Plavix. Would plan to stop Plavix and transition to aspirin, Xarelto for discharge given history of PAF. Of note did have left atrial appendage clip, and could be considered for eventual discontinuation of anticoagulation as
an outpatient
-Creatinine stable at 1.5
-Prior to admission was on regimen of Coreg, Entresto, amlodipine, Lasix. resume as able post op
-for possible DC this afternoon
-d/w nursing
-d/w CT surgery [facility]
Progress Note - Vendor Management Consultant
Subjective
Date of Service: October 01, 2024
Feeling well. Had bowel movement yesterday. Eating well
Objective
Labs:
10/01/24 02:46
10/01/24 02:46
Labs
Hgb 10.8 g/dL (13.0-18.0) L 10/01/24 02:46
Hct 32.4 % (39.0-52.0) L 10/01/24 02:46
Plt Count 287 10^3/uL (130-400) D 10/01/24 02:46
PT 16.3 Sec (11.4-14.6) H 09/28/24 15:51
INR 1.28 09/28/24 15:51
APTT 33.6 Sec (23.4-35.0) 09/28/24 15:51
Sodium 135 mmol/L (135-145) 10/01/24 02:46
Potassium 4.5 mmol/L (3.5-5.1) 10/01/24 02:46
BUN 22 mg/dl (9-20) H 10/01/24 02:46
Creatinine 1.5 mg/dL (0.7-1.3) H 10/01/24 02:46
Glucose 98 mg/dl (70-99) 10/01/24 02:46
Vital Signs and I&O:
Vital Signs
Temp Pulse Resp BP Pulse Ox
98.5 F 78 16 98
10/01/24 06:49 10/01/24 08:35 10/01/24 08:27 10/01/24 08:35 10/01/24 08:49
Vital Signs
Temp Pulse Resp BP Pulse Ox
98.5 F 78 16 68 98
10/01/24 06:49 10/01/24 08:35 10/01/24 08:27 10/01/24 08:35 10/01/24 08:49
Intake & Output
09/29/24 09/30/24 10/01/24 10/02/24
07:59 07:59 07:59 07:59
Intake Total 1351.2 / 1351.2 833.2 / 953.2 1300 / 1300
Output Total 1565 / 1565 1205 / 1205 1630 / 1630
Balance -213.8 / -213.8 -371.8 / -251.8 -330 / -330
Physical Exam
Physical Exam
GEN: No distress, awake, alert, oriented x3
HEENT: supple, anicteric, mmm, eomi
LUNGS: CTA B/L, no wheezes/rales
CV: Reg, S1/S2, no murmur
ABD: soft, BS+, NT/ND
EXT: No cyanosis, clubbing. trace edema of B/L LE
NEURO: Gross non-focal
SKIN: Warm, pink, dry. No rash. Sternotomy incision c/d/i
--- NOTE | 2024-10-01 09:25 | CM ---
Reviewed chart. Mr. Hou was transferred to IVU. Met with Mr. Hou to review discharge plans. He states he is feeling well and maybe able to go home soon. We reviewed a home visit by the Transitional Care Nurse. He is agreeable to a home
visit. Prior to admission he resides with his spouse in a spilt level home. He has seven steps to get to his bedroom/full bathroom. Prior to admission he was independent with ambulation and adls. He states he ambulated in the hallways yesterday
and he will do stairs today. He has a home nebulizer at home. His spouse will be home to assist in his care if needed. Also a friend is coming in on Friday to stay with them and can assist in his care if needed. Medical work-up in progress. The
discharge plan is to return home with his spouse and a home visit by the Transitional Care Nurse when medically stable.
[2024-10-01] MEDS: LOPRESSOR PO (12:05)
--- NOTE | 2024-10-01 12:29 | W.DCSUMMARY ---
Discharge Summary
Discharge Data
Date of Admission: 09/22/24
Date of Discharge: 10/01/24
-
Pending Results: No
Hospital Course
Primary care physician: Hussain Nunez DIVORCE ATTORNEY
Outpatient enrollment advisor: Ирина Sun
Inpatient consultants: [facility] Cardiology, pulmonary liquid center assembler,
Procedures:
1. CABG x 3, MAZE, left atrial appendage clip
Primary Diagnosis:
1. Multivessel Coronary Artery Disease with unstable angina
Secondary Diagnoses:
1. CKD stage IIIb
3. Paroxysmal atrial fibrillation on Xarelto
4. Hypertension
5. Hyperlipidemia
6. Ischemic cardiomyopathy, HFimpEF
7. COPD
8. GERD
HPI: 68-year-old male with past medical history significant for cardiomyopathy, congestive heart failure, PAF on Xarelto, CKD stage IIIb, CAD with stent to RCA in 2019, admitted via the ER 09/22/24 with complaint of chest burning/pain that radiated
to his left shoulder. Ruled out for GA by troponins.
Hospital course: Entresto and Xarelto were held. Patient underwent left heart cath on 09/24/2024 which revealed multivessel disease. CT surgery was consulted for surgical evaluation. Patient states the operating room on 09/28/2024 for CABG x 3 with
LOAIZA to LAD, SVG to ramus intermedius, SVG to distal RCA, maze, and left atrial appendage number [address] Polo Jefferson. Patient received no intraoperative blood products and returned to CVICU on Levophed, insulin, Precedex. Patient
extubated the evening of surgery. Levophed was weaned off on postoperative day #1 and left pleural chest tube was removed. Patient maintained sinus rhythm while hospitalized. Baseline creatinine of 1.4 increased to a maximum of 1.7 on
postoperative day #1, and decreased to 1.5 on day of discharge. Midodrine was initiated in effort to resume and continue beta-az. Temporary wires and mediastinal chest tubes were removed on postoperative day #2. Leon was removed and patient
voided without difficulty. Right IJ was removed om postoperative day #3. Plavix was transitioned to Xarelto for discharge. Patient will be discharged on Coreg 3.25 mg twice daily and continuing midodrine 5 mg 3 times daily with blood pressure
monitoring per transitional nurse team. BMP to be repeated in 1 week. Patient ambulated in halls with cardiac rehab and deemed stable for discharge home.
Home medication changes:
Coreg 6.25 mg decreased to Coreg 3.125 mg twice daily
Stop amlodipine and Entresto
Continue midodrine for low blood pressure with Coreg
Discharge Plan
-
Patient Disposition: Home (Routine Discharge)
Discharge Diagnosis/Procedures: CABG
Condition: Good
Diet: Low Cholesterol and Low Sodium
Activity: No strenuous activity
Driving Restrictions: Not until seen by your Dr
Bathing Restrictions: OK to Shower
Other Services: Cardiac Rehab
Specialty Instructions: Weigh Daily- Call MD for wt gain/loss 3 lbs overnight/5 lbs in 1 week
Stand Alone Forms: DC Instructions- Cath/EP Lab
Referrals:
CT Transitional Care Nurse [Outside] - in one to two days
Referral Note: The Cardiothoracic Transitional Care Nurse will call you to set up a visit in 1-2 days.
[facility] [Outside]
Referral Note: Cardiac Rehab Orientation appointment is on Friday, November 03, 2024@ 1:00pm.
The Cardiac Rehab gym is located on the first floor of the [facility].
Hussain Nunez CRNP [Family Provider, Family Practice] - in four to six weeks
Referral Note: Please make an appointment in four to six weeks.
Soledad Michele PA-C [Specified Professional Personl, Cardiology] - 11/11/24 10:20 am
Polo Jefferson MD [Active, Cardiac Surgery] - 11/01/24 2:15 pm
Prescriptions:
New
pravastatin 10 mg Tablet
10 mg PO QPM Qty: 30 1RF
cyclobenzaprine 10 mg Tablet
5 mg PO Q8HPRN PRN (Reason: muscle spasm) Qty: 10 0RF
gabapentin 100 mg Capsule
100 mg PO TID Qty: 30 0RF
oxycodone 5 mg Tablet
5 mg PO Q4HPRN PRN (Reason: severe pain) Qty: 10 0RF
carvedilol 3.125 mg tablet
3.125 mg PO BID Qty: 60 1RF
midodrine 5 mg Tablet
5 mg PO TID@0800,1300,1800 Qty: 30 0RF
Continued
furosemide 40 MG tablet
20 mg PO PRN PRN (Reason: edema, weight gain)
Rx Instructions:
PRN but only take once during the day
aspirin 81 MG tablet,delayed release (DR/EC)
81 mg PO DAILY
pantoprazole 40 MG tablet,delayed release (DR/EC)
40 mg PO DAILY
multivitamin with folic acid [Tab-A-Flakito] 1 TABLET tablet
1 tab PO DAILY
sildenafil [Viagra] 100 MG tablet
100 mg PO DAILYPRN PRN (Reason: sexually activity) Qty: 0 0RF
Rx Instructions:
Do not take for 1 week post GA. Do not take within 24 hours of nitroglycerin.
acetaminophen 500 mg Tablet
1,000 mg PO Q6HPRN PRN (Reason: mild pain)
ezetimibe [Zetia] 10 mg Tablet
10 mg PO DAILY
Xarelto 20 mg Tablet
20 mg PO QPM
Medical Marijuana
1 dose PO HS
Patient Comments:
PT USES BOTH VAPE PEN AND BUD GONZALEZ, FILLS AT [facility]
Trelegy Ellipta 100-62.5-25 mcg Blister With Device
1 inh INHALATION DAILY
Discontinued
carvedilol 12.5 MG tablet
6.25 mg PO BID
nitroglycerin 0.4 MG tablet, sublingual
0.4 mg sublingual [id number] PRN (Reason: CHEST PAIN)
amlodipine 2.5 mg Tablet
2.5 mg PO HS
Entresto 49-51 mg Tablet
1 tab PO BID
Discharge Orders:
Discharge Patient (As Directed); Ordered 10/01/24
Ordered By: Darling Washington
Discharge Date and Time
Print Language: SWEDISH
--- NOTE | 2024-10-05 10:59 | W.PN.UPDATE ---
Update Note
Progress Note Update
Clerical error, intent for inpatient status on 09/23 @ 362.
== END 2024-10-01 14:20 | disposition home or self-care (01) | DRG 234 ==
LOC: IVU 18:49
PROVIDERS: Anesthesiology; Clinical Nurse Specialist Acute Care; Hospitalist; Internal Medicine Interventional Cardiology; Nurse Practitioner; Nurse Practitioner Adult Health; Physician Assistant; Physician Assistant Medical; Student in an Organized Health Care Education/Training Program; ADMITTING PHYSICIAN Student in an Organized Health Care Education/Training Program; ATTENDING PHYSICIAN Thoracic Surgery (Cardiothoracic Vascular Surgery); CONSULT PHYSICIAN Internal Medicine; EMERGENCY PHYSICIAN Emergency Medicine; FAMILY PHYSICIAN Nurse Practitioner Family; OTHER PHYSICIAN Internal Medicine Cardiovascular Disease
PROC: 4A023N7 Measurement of Cardiac Sampling and Pressure, Left Heart, Percutaneous Approach (ICD-10-PCS; 2024-09-24)
PROC: B241ZZ3 Ultrasonography of Multiple Coronary Arteries, Intravascular (ICD-10-PCS; 2024-09-24)
PROC: B2111ZZ Fluoroscopy of Multiple Coronary Arteries using Low Osmolar Contrast (ICD-10-PCS; 2024-09-24)
PROC: 5A1221Z Performance of Cardiac Output, Continuous (ICD-10-PCS; 2024-09-28)
PROC: 021109W Bypass Coronary Artery, Two Arteries from Aorta with Autologous Venous Tissue, Open Approach (ICD-10-PCS; 2024-09-28)
PROC: 02580ZZ Destruction of Conduction Mechanism, Open Approach (ICD-10-PCS; 2024-09-28)
PROC: 02L70CK Occlusion of Left Atrial Appendage with Extraluminal Device, Open Approach (ICD-10-PCS; 2024-09-28)
PROC: 03HY32Z Insertion of Monitoring Device into Upper Artery, Percutaneous Approach (ICD-10-PCS; 2024-09-28)
PROC: B24BZZ4 Ultrasonography of Heart with Aorta, Transesophageal (ICD-10-PCS; 2024-09-28)
PROC: 06BP4ZZ Excision of Right Saphenous Vein, Percutaneous Endoscopic Approach (ICD-10-PCS; 2024-09-28)
PROC: 02100Z9 Bypass Coronary Artery, One Artery from Left Internal Mammary, Open Approach (ICD-10-PCS; 2024-09-28)
DX: T82.855A Stenosis of coronary artery stent, initial encounter (principal); I25.110 Atherosclerotic heart disease of native coronary artery with unstable angina pectoris; I13.0 Hypertensive heart and chronic kidney disease with heart failure and stage 1 through stage 4 chronic kidney disease, or unspecified chronic kidney disease; I42.8 Other cardiomyopathies; D62 Acute posthemorrhagic anemia; J98.11 Atelectasis; I50.32 Chronic diastolic (congestive) heart failure; E86.1 Hypovolemia; E87.70 Fluid overload, unspecified; I49.1 Atrial premature depolarization; R51.9 Headache, unspecified; N18.32 Chronic kidney disease, stage 3b; I48.0 Paroxysmal atrial fibrillation; E78.00 Pure hypercholesterolemia, unspecified; I25.5 Ischemic cardiomyopathy; J44.89 Other specified chronic obstructive pulmonary disease; K21.9 Gastro-esophageal reflux disease without esophagitis; F17.210 Nicotine dependence, cigarettes, uncomplicated; I49.3 Ventricular premature depolarization; Y71.2 Prosthetic and other implants, materials and accessory cardiovascular devices associated with adverse incidents; G89.29 Other chronic pain; M48.00 Spinal stenosis, site unspecified; M19.90 Unspecified osteoarthritis, unspecified site; F10.20 Alcohol dependence, uncomplicated; Z95.5 Presence of coronary angioplasty implant and graft; I25.2 Old myocardial infarction; Z79.82 Long term (current) use of aspirin; Z79.01 Long term (current) use of anticoagulants; Z82.49 Family history of ischemic heart disease and other diseases of the circulatory system
CPT/HCPCS: 36600; 71045; 71046; 71250; 80048; 80053; 80061; 81003; 81015; 82248; 82330; 82465; 82565; 82805; 82947; 82962; 83036; 83718; 83721; 83735; 84100; 84132; 84302; 84484; 84520; 85014; 85018; 85025; 85027; 85049; 85347; 85610; 85730; 86850; 86900; 86901; 86920; 92978; 93005; 93306; 93312; 93320; 93325; 93458; 93650; 93880; 93970; 94002; 94640; 99152; 99153; 99285; C1753; C1769; C1894; G0378; J2916; Q9967

== ENCOUNTER → 2024-10-12 13:07 | Outpatient (REF) | payer MEDICARE, SELFPAY ==
[2024-10-12 15:38] LABS: Blood Urea Nitrogen 21 mg/dl (9-20); Calcium 9.2 mg/dl (8.4-10.2); Carbon Dioxide 21 mmol/L (22-30); Chloride 108 mmol/L (98-107); Glucose 97 mg/dl (70-99); Sodium 136 mmol/L (135-145); eGFR 50.71
== END ==
LOC: HWLAB 13:07
PROVIDERS: ATTENDING PHYSICIAN Thoracic Surgery (Cardiothoracic Vascular Surgery); FAMILY PHYSICIAN Nurse Practitioner Family
DX: N28.9 Disorder of kidney and ureter, unspecified (principal)
CPT/HCPCS: 36415; 80048

== ENCOUNTER → 2024-11-10 10:58 | Outpatient (REF) | payer MEDICARE, SELFPAY ==
[2024-11-10 13:53] LABS: Blood Urea Nitrogen 31 mg/dl (9-20); Calcium 9.3 mg/dl (8.4-10.2); Carbon Dioxide 16 mmol/L (22-30); Chloride 110 mmol/L (98-107); Glucose 124 mg/dl (70-99); Potassium 5.5 mmol/L (3.5-5.1); Sodium 136 mmol/L (135-145); eGFR 50.71
== END ==
LOC: HWLAB 10:58
PROVIDERS: ATTENDING PHYSICIAN Internal Medicine Cardiovascular Disease; FAMILY PHYSICIAN Nurse Practitioner Family
DX: I42.9 Cardiomyopathy, unspecified (principal); I25.10 Atherosclerotic heart disease of native coronary artery without angina pectoris
CPT/HCPCS: 36415; 80048

== ENCOUNTER 2024-11-16 16:17 | Inpatient (IN) | payer MEDICARE, SELFPAY ==
[2024-11-16] VITALS (8 sets, daily range): BP systolic 129–160; BP diastolic 86–101; BMI 30.1; BMI 29.3
[2024-11-16 12:50] LABS: Hematocrit 38.7 % (39.0-52.0); Hemoglobin 12.4 g/dL (13.0-18.0); Mean Corp Hgb Conc. 32.0 g/dL (33.0-37.0); Mean Corpuscular Volume 90.6 fL (80.0-94.0); Nucleated Red Blood Cells % 0 % (-); Platelet Count 488 10^3/uL (130-400); Red Cell Dist. Width 14.4 % (11.5-14.5)
[2024-11-16 13:10] LABS: Troponin I < 0.012 ng/ml
--- NOTE | 2024-11-16 13:15 | ED.GENMED ---
History of Present Illness
General
Chief Complaint: Cardiac Symptoms
Source: patient and spouse
Exam Limitations: none
Time Seen by Provider: 11/16/24 12:04
History of Present Illness
History of Present Illness:
Patient is approximately 6 weeks post CABG. He was doing well. Entresto was stopped 5 days ago. 3 days ago patient had a relatively sudden onset of headache nausea tingling in both arms and some mild chest pressure. Blood pressure was elevated
at that time. He thought it might be due to his blood pressure and took an extra carvedilol and retook his Entresto. Symptoms lasted about 45 minutes. Today is similar type episode recurred with slightly less elevated blood pressure. Currently
asymptomatic.
Past History
Past History
ED Past Medical History: Asthma, CAD, CHF, COPD, GERD, HTN, Hypercholesterolemia and Other (Kidney stones, Gastritis, Esophagitis,)
ED Past Surgical History: Cardiac, Cholecystectomy and Orthopedic
Social History
Tobacco: Non-smoker
Alcohol: Daily (Captin Rito 6-8 oz)
Drug: None
Personal:
Living: with family
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
Family History
Family History: Other; Negative Sudden
Review of Systems
Review of Systems
All Other Systems: Not applicable
Constitutional: Denies fever or chills
Respiratory: Reports no symptoms
Cardiac: Denies syncope
Neurological: Denies dizzy or weakness
Phy Exam
Physical Exam
Physical Exam:
GENERAL: Alert and oriented in no apparent distress
EYE: Orbits normal.
NECK: Supple
CARDIAC: Regular rate and rhythm without any obvious murmurs. Well-healing sternotomy scar
LUNGS: Clear breath sounds,normal
ABDOMEN: Soft, without focal tenderness or distention
NEUROLOGICAL: Alert and oriented , grossly non-focal
SKIN: Warm and dry, no rash or lesion, no discoloration, skin intact.
MUSCULOSKELETAL: No edema,no deformity.Good color
PSYCH: Normal and appropriate interaction.
Course
Orders/Labs/Results
Orders:
Orders
11/16/24 10:52
EKG [Electrocardiogram (*1)] Urgent
Reason for Study: CAD
EKG- Treatment ONCE
11/16/24 12:17
Cardiac Monitoring- Treatment ONCE
IV Insert/Care/Rem.- Treatment PRN
CR Chest - 2 Views Urgent
Comment:
Reason For Exam: cp/recent cabg
Pulse Ox/cont/shift [RESP] Stat
Quantity: 1
11/16/24 12:18
CT Head W/o Iv Contrast Urgent
Comment:
Reason For Exam: Headache/hypertension/anticoagulated
11/16/24 12:28
Complete Blood Count/With Diff Urgent
Troponin I Urgent
11/16/24 12:57
Basic Metabolic Panel Urgent
11/16/24 13:42
Urinalysis Reflex To Culture Urgent
Date Specimen was Collected: 11/16/24
Time Specimen was Collected: 13:41
Urine Microscopic Reflex Cult Urgent
11/16/24 Dinner
Regular
At Your Request: Full Participation
11/16/24 15:18
Admit/Transfer Patient As Directed
Co-Sign Provider:
Level of Care: Inpatient admission
Assign to:: Telemetry
Physician / Group: Hospitalist
Diagnosis: Chest pain/GASPER
Reason for Telemetry: Medication for Arrhythmia
Date to Stop Telemetry: 11/18/24
Time to Stop Telemetry: 11:00
Reason for Hospitalization: .
Expected length of stay greater than two midnights?: Yes
ELOS- Estimated Length of Stay in days: 3
I certify the patient meets the requirements for IP care: Yes
PRN Pain Medication Management As Directed
May give lesser potent ordered pain med per pt: Yes
preference::
Protocol:: Medication orders for pain may be administered in a
manner that supports deferring to patient preference
when the pt is:
- Requesting an ordered lesser potent pain medication.
Least to most potent pain medications are defined
as: acetaminophen < NSAID < tramadol < opioids
(morphine, oxycodone, hydromorphone).
- Requesting a lesser dose of the same medication IF
ORDERED.
- Requesting a less intrusive route of administration
if both routes are prescribed by the provider (PO <
IV).
11/16/24 15:20
Code Status As Directed
Resuscitation Status: Full Code
11/16/24 15:29
Blood Culture Stat
TRACIE Source: Blood/Venous
Specimen Description:
11/16/24 17:00
NIFEdipine EXTENDED RELEASE [Procardia Xl (Extended Release)] 30 mg PO DAILY
11/16/24 19:35
Acetaminophen [Tylenol] 1,000 mg PO Q6HPRN PRN mild pain
Albuterol Nebs [Ventolin Nebules] 2.5 mg INH R Q4HPRN PRN sob
Rivaroxaban [Xarelto] 20 mg PO QPM
11/16/24 19:35
Consult Cardiology [CARDIOLOGY CONSULT] Routine
Consulting Provider: Leo Rogers
Was physician already notified: Yes
Reason for consult: Chest pain
11/16/24 22:22
Urine Drug Abuse Screen Stat
Date Specimen was Collected: 11/16/24
Time Specimen was Collected: 22:19
11/17/24 06:00
Ot Eval And Treat IN AM
Pt Eval And Treat IN AM
Activity Level: Ambulate
11/17/24 06:41
BMP [Basic Metabolic Panel] IN AM
CBC/No Diff [Complete Blood Count/No Diff] IN AM
11/17/24 08:00
Aspirin Low Dose EC [Aspir Low (Enteric Coated)] 81 mg PO DAILY
Ezetimibe [Zetia] 10 mg PO DAILY
Pantoprazole [Protonix] 40 mg PO DAILY
11/18/24 11:00
DC Protocol for Telemetry ONCE
Abnormal Lab Results
11/16/24 11/16/24 11/16/24
12:28 12:57 13:42
WBC 14.4 H 10^3/uL
(4.8-10.8)
RBC 4.27 L 10^6/uL
(4.70-6.10)
Hgb 12.4 L g/dL
(13.0-18.0)
Hct 38.7 L %
(39.0-52.0)
MCHC 32.0 L g/dL
(33.0-37.0)
Plt Count 488 H 10^3/uL
(130-400)
Abs Immat Gran (auto) 0.1 H 10^3/uL
(0-0.05)
Absolute Neuts (auto) 10.7 H 10^3/uL
(1.4-6.5)
Absolute Monos (auto) 1.2 H 10^3/uL
(0.1-0.6)
Lymphocytes % 13.4 L %
(20.5-51.1)
Potassium 5.4 H mmol/L
(3.5-5.1)
Chloride 111 H mmol/L
(98-107)
Carbon Dioxide 19 L mmol/L
(22-30)
BUN 45 H mg/dl
(9-20)
Creatinine 1.8 H mg/dL
(0.7-1.3)
Urine Bacteria (Reflex) Few A
(Negative)
Urine Albumin (Reflex) 1+ A
(Neg - Trace)
11/16/24 12:28
11/16/24 12:57
Vital Signs
Initial and Last Documented VS:
Initial Vital Signs
Temp Pulse Resp BP Pulse Ox
98.6 F 83 16 147/95 100
11/16/24 10:55 11/16/24 10:55 11/16/24 10:55 11/16/24 10:55 11/16/24 10:55
Last Documented Vital Signs
Temp Pulse Resp BP Pulse Ox
98.4 F 86 18 120/76 100
11/17/24 11:22 11/17/24 11:22 11/17/24 11:22 11/17/24 11:22 11/17/24 11:22
MDM/Problems Addressed
Differential Diagnosis Includes:
Patient with 2 episodes of headache mild chest pressure and some paresthesias. This was associated with hypertension at both times. Clinically stable at this time. Workup in progress. Cardiology and cardiothoracic surgery was notified.
*Pulse Oximetry
SaO2: 98
Oxygen Mode of Delivery: Room air
Patient hypoxic: no
*EKG
Interpreted by ED Provider?: Yes
Interpretation: normal
Comparison EKG: no changes
Heart Rate: 81
Rate: normal
Rhythm: sinus
[place]: normal axis
Interval: normal interval
QRS Pattern: low voltage
Ischemia: no ischemia
*Critical Care Note
Total Time (30-74mins, 75-104mins- exclusive of procedures): Not Applicable
Data Reviewed
Review of Other/Old Records Reveals: Labs, Records, Radiology Studies, Operative Reports, Testing and Discharge Summary
Update Note
Update Note:
Patient with recurring chest pain recurring headache hypertension renal insufficiency this mildly progressed mild hyperkalemia and a ongoing leukocytosis. Will be admitted as observation
ED Attending Note
-
Portions of this chart may have been created with voice recognition software.� Occasional wrong word or��sound alike� substitutions may have occurred due to the inherent limitations of voice recognition software.
Discharge Plan
Departure
Patient Disposition: Admit
Date of Disposition: 11/16/24
Time of Disposition: 14:37
Presentation/result/management discussed w/ accepting MD/DO: Hospitalist
Discharge Problem:
Recurrent chest pain/headache, Recent CABG, Renal insufficiency, Ongoing leukocytosis, Hypertension
Interventions
Interventions:
*Risk Screen - Suicide Last Done: 11/16/24 10:55
*General Assessment Last Done: 11/16/24 13:56
*Neglect/Abuse Screening Last Done: 11/16/24 10:55
*ED- Fall Risk Assessment Last Done: 11/16/24 13:56
*ED COVID-19 Vaccine History Last Done: 11/16/24 13:56
*Nursing Disposition Last Done: 11/16/24 19:30
ED- Pulmonary Assessment Last Done: 11/16/24 13:50
ED- Cardiac Assessment Last Done: 11/16/24 12:37
[2024-11-16 13:36] LABS: Blood Urea Nitrogen 45 mg/dl (9-20); Calcium 8.7 mg/dl (8.4-10.2); Carbon Dioxide 19 mmol/L (22-30); Chloride 111 mmol/L (98-107); Estimated Creatinine Clearance 44 ml/min; Glucose 94 mg/dl (70-99); Potassium 5.4 mmol/L (3.5-5.1); Sodium 136 mmol/L (135-145); eGFR 40.75
[2024-11-16 13:57] LABS: Urine Character Clear (Clear)
[2024-11-16 14:40] LABS: Urine Red Blood Cell 0-2 /HPF (0-2); Urine White Cell 0-2 /HPF (0-5)
--- NOTE | 2024-11-16 15:16 | HPS.HSE ---
Family Physician
-
Family Physician: ANIL Gómez
Chief Complaint
-
Chest pain with elevated blood pressure
History of Present Illness
68 years old male who presented with history of elevated blood pressure at home. Patient had an episode with chest pressure, left-sided tingling and headache. Patient noted his blood pressure was elevated. Patient was taking Entresto but was
stopped due to his kidney function and potassium level. He had another episode of elevated blood pressure associated with chest discomfort, headache and tingling on the left side, he took extra dose of carvedilol, Entresto. Patient also took nitro
to help with the blood pressure and chest discomfort. In the emergency room. He did not have active chest pain. Negative troponin and EKG did not show acute ischemic changes.
Medical History
Past Medical History
Past Medical History: Reports Other (Chronic kidney disease, CAD, paroxysmal A-fib, hypertension, hyperlipidemia, COPD, GERD)
Past Surgical History: Reports Other (Multivessel coronary artery bypass graft surgery on 09/28/24)
Social History
Tobacco: Former Smoker
Alcohol: Former
Drug: Marijuana
Personal:
Living: With Family
Employment: Retired (Retired nurse)
Family History
Family History: CAD, Cancer and Hypertension
Allergies / Home Medications
Allergies reflects when Allergies were last updated in [facility].
Home Medications with original date entered in [facility]
Allergy/Medication List:
Allergies
Allergy/AdvReac Type Severity Reaction Status Date / Time
amoxicillin Allergy Nausea / Verified 09/22/24 18:27
Vomiting
anise oil Allergy Rash/SOB Verified 09/22/24 18:27
atorvastatin (From Lipitor) Allergy muscle Verified 09/24/24 16:24
soreness/stiffness
codeine (Codeine) Allergy UPSET Verified 09/24/24 16:24
STOMACH
doxycycline Allergy Anaphylaxis Verified 09/22/24 18:27
meperidine HCl (From Demerol) Allergy Nausea Verified 09/22/24 18:27
pentazocine (From Talwin) Allergy Confusion, Verified 09/24/24 16:24
hallucinations
pollen extracts Allergy nasal Verified 09/22/24 18:27
congestion,
watery eyes
rosuvastatin (From Crestor) Allergy cramping/muscle Verified 09/24/24 16:24
soreness
and
tightness
Home Medications
aspirin 81 mg tablet,delayed release 81 mg PO DAILY Blood clot prevention/tx 10/14/19
multivitamin with folic acid 400 mcg tablet (Tab-A-Flakito) 1 tab PO DAILY Supplement 10/14/19
pantoprazole 40 mg tablet,delayed release 40 mg PO DAILY Gastrointestinal issue 10/14/19
acetaminophen 500 mg tablet 1,000 mg PO Q6HPRN PRN mild pain 07/03/22
ezetimibe 10 mg tablet (Zetia) 10 mg PO DAILY High Cholesterol 07/03/22
rivaroxaban 20 mg tablet (Xarelto) 20 mg PO QPM Blood Clot Prevention/Tx 07/03/22
Medical Marijuana 1 dose PO HSPRN PRN sleep 06/26/23
fluticasone fur. 100 mcg-umeclid 62.5 mcg-vilant 25 mcg inhalat.powder (Trelegy Ellipta) 1 inh inhalation R DAILY Lung/Breathing Issues 09/22/24
albuterol sulfate 2.5 mg/3 mL (0.083 %) solution for nebulization 2.5 mg inhalation R Q4HPRN PRN sob 11/16/24
carvedilol 6.25 mg tablet (Coreg) 6.25 mg PO BID 11/16/24
Review of Systems
-
History Source: Patient
A 12 point ROS was completed and negative except as noted: Yes
Constitutional: Denies Fever or Chills
EENT: Denies Sore Throat or Runny Nose
Respiratory: Denies Trouble Breathing
Cardiac: Reports Chest Pain
Abdomen/GI: Denies Abdominal Pain, Nausea or Diarrhea
: Denies Dysuria
Musculoskeletal: Reports Joint Pain (Mostly left shoulder/anterior chest related to recent bypass surgery); Denies Joint Swelling
Skin: Denies Rash
Neurological: Reports Headache
Endocrine: Denies Temp Intolerance
Hematologic/Lymphatic: Denies Bruising
Psych: Denies Panic Disorder
Physical Exam
Vital Signs
Vital Signs
Temp Pulse Resp BP Pulse Ox
98.6 F 78 15 148/101 98
11/16/24 10:55 11/16/24 14:15 11/16/24 14:15 11/16/24 14:00 11/16/24 13:18
Physical Exam
General: No Apparent Distress and Comfortable
HEENT: Moist mucous membranes and Atraumatic
Respiratory: Clear; No Wheezes or Rales
Cardiac: S1/S2 and Regular Rhythm; No Murmur
GI: Soft, Non Distended and Normal Bowel Sounds
Genito-urinary: No Leon
Musculoskeletal: No Clubbing, No Cyanosis and No Edema
Skin: No Jaundice
Neuro: AO x 3 and Nonfocal/grossly intact; No Slurred Speech, Facial Droop or Tremors
Psych: Calm and Intact Judgment/Insight
Laboratory Results
-
11/16/24 12:28
11/16/24 12:57
Laboratory Results
Troponin I < 0.012 ng/ml 11/16/24 12:28
Impression/Plan
-
68 years old male presented with infrequent episodes of headache/elevated blood pressure/chest pressure and left-sided tingling
# Uncontrolled essential hypertension
Before cardiac surgery, patient was on Coreg and amlodipine. Post surgery, he had bradycardia and hypotension and subsequently was maintained on low-dose Coreg and midodrine. He did not need to use midodrine after leaving the hospital. He was
started on Entresto but could not continue because of hyperkalemia and renal insufficiency.
He is having symptoms of hypertensive encephalopathy. Will continue with carvedilol and titrate the dose. Will start low-dose calcium channel az, will try nifedipine.
Monitor blood pressure.
CT head, no acute findings
# Leukocytosis. No fever or chills. Will do blood culture. Urine test showed mild bacteria, but clear overall.
# History of chest pressure/pain
History of CAD. Currently pain-free. Negative troponin. EKG no acute ischemic changes. Will continue to monitor on telemetry. Follow-up with cardiology recommendation. Appreciate help.
#HFpEF
- History of heart failure with preserved ejection
- Echo 09/23/2024: Normal left ventricular wall thickness. Normal left ventricular chamber size. Low- Normal left ventricular systolic function. Left ventricular ejection fraction is 52% by Kessler's method. Basal inferior wall, basal and mid
inferolateral tolentino, and the basal inferoseptum appear hypokinetic. Normal diastolic function.
# Acute on chronic kidney disease stage IIIb.
-Follow BMP closely
Avoid nephrotoxic agents
# Hyperkalemia. Will give Lokelma. Monitor on telemetry
#Paroxysmal Atrial Fibrillation
-c/w Xarelto
#Hyperlipidemia
- Continue statin
#Hx Tobacco Use
CXR showed Hyperaeration suggests a component of COPD. Recommend OP PFT at least 3 months post CABG to give a chance for accurate measurements. His a primary care doctor put him on Trelegy and since then his reactive airway symptoms improved. No
formal diagnosis of COPD.
-Patient stopped smoking since September.
- Patient denies alcohol use.
No hypoxia
Total time spent to see the patient, examine the patient, review lab results and data, discuss treatment plan with patient, ER doctor, mold dumper, nursing staff around 75 minutes
--- NOTE | 2024-11-16 16:23 | CON.CAR ---
Addendum entered and electronically signed by nAshu Salomon MD 11/16/24 17:42:
I saw and examined the patient.
The Dual Hose Cementer's note was reviewed and I agree with the note.
Comment: Briefly, 68-year-old man past medical history of multivessel CAD with recent CABG in September 2024 presenting with headache, chest discomfort and elevated blood pressure.
In the initial postoperative period after his CABG blood pressure was on the low side and patient was discharged with midodrine
Since then blood pressures have been higher and this has been exacerbated by discontinuing his Entresto for GASPER/hyperkalemia
Creatinine and potassium remain elevated
Recommend increasing carvedilol and starting amlodipine which he was on in the past and tolerated
Follow renal function and electrolytes closely
Hopefully with better control blood pressure control symptoms of headache and chest discomfort will resolve
For completeness plan to check echo in a.m.
Rest per Ericka aJy
Original Note:
Consultation
Consultation Request
Date/Time Consultation Performed: 11/16/24
Requesting Provider: Dr. Graves
Performing Provider: Ericka Jay PA-C for Dr. Salomon
Reason for Consultation: HTN, CP
Medical History
-
Chief Complaint: HTN, CP
History of Present Illness:
Patient is a 68-year-old male with past medical history of CAD, most recently undergoing CABG x 3 with maze and left atrial appendage clip on 09/28/2024. He reports he has been doing relatively well overall and has started cardiac rehab. He reports
some issues with pain sternotomy incision pain and shoulder and upper back pain. He recently saw orthopedics and was planned for PT. He reports his blood pressures have been very well-controlled in the 120s over 80s mostly. He was seen in our
office 11/11/2024 and based on blood work was noted to have hyperkalemia and Entresto was stopped. He reports then on 11/14/2024 he took his meds and had breakfast. Then shortly after he developed headache with chest pain and tingling in
hands. He took an extra dose of Coreg and Entresto to try to get his blood pressure down. He called our office and was told to continue to monitor his symptoms and blood pressures. He reports then this morning he had a similar episode with chest
pain, bilateral arm pain, and headache. He took sublingual nitro x 1 which did improve his symptoms. He came to ER for further evaluation. Troponin negative on arrival. Cardiology consulted for evaluation
PMH:
Coronary artery disease
mid RCA hazy 70 to 80% at the proximal edge of the prior stent. Proximal LAD with significant disease 80% with concern regarding another branch vessel either high diagonal or ramus overlapping this area
s/p 3.0 mm Xience to mid RCA 10/14/19
s/p CABGx3 In situ LOAIZA to LAD, Ao to RSVG to ramus versus high diagonal, Ao to RSVG to distal RCA, MAZE, SUDHA clip 09/28/24
Hyperlipidemia with statin intolerance to Lipitor and Crestor currently on Zetia. LDL 62
Paroxysmal Afib
CKD 3b
Improved mixed ischemic and nonischemic CM, EF previously 20%, then 50% 09/2017, then 60-65% by echo 02/28/21, Echo 09/23/24 52%
Frequent PVCs
Hypertension
h/o orthostasis and syncope
Degenerative disc disease
Chronic back pain with history of spinal stenosis and prior back surgery
Alcohol use disorder
Former tobacco use
Past Medical History
Past Medical History: Other (in HPI)
Past Surgical History: Cardiac (RCA PCI 10/14/19), Cholecystectomy and Orthopedic
Social History
Tobacco: Former Smoker
Alcohol: Daily (4 oz of liquor daily)
Drug: Marijuana
Personal:
Living: With Family
Family History
Family History: CAD, Cancer and Hypertension
Allergies / Home Medications
Allergy/AdvReac Type Severity Reaction Status Date / Time
amoxicillin Allergy Nausea / Verified 09/22/24 18:27
Vomiting
anise oil Allergy Rash/SOB Verified 09/22/24 18:27
atorvastatin (From Lipitor) Allergy muscle Verified 09/24/24 16:24
soreness/stiffness
codeine (Codeine) Allergy UPSET Verified 09/24/24 16:24
STOMACH
doxycycline Allergy Anaphylaxis Verified 09/22/24 18:27
meperidine HCl (From Demerol) Allergy Nausea Verified 09/22/24 18:27
pentazocine (From Talwin) Allergy Confusion, Verified 09/24/24 16:24
hallucinations
pollen extracts Allergy nasal Verified 09/22/24 18:27
congestion,
watery eyes
rosuvastatin (From Crestor) Allergy cramping/muscle Verified 09/24/24 16:24
soreness
and
tightness
�Medication �Instructions �Recorded �Confirmed �Type
aspirin 81 mg tablet,delayed 81 mg PO DAILY Blood clot 10/14/19 11/16/24 History
release prevention/tx
multivitamin with folic acid 400 1 tab PO DAILY Supplement 10/14/19 11/16/24 History
mcg tablet (Tab-A-Flakito)
pantoprazole 40 mg tablet,delayed 40 mg PO DAILY Gastrointestinal 10/14/19 11/16/24 History
release issue
acetaminophen 500 mg tablet 1,000 mg PO Q6HPRN PRN mild pain 07/03/22 11/16/24 History
ezetimibe 10 mg tablet (Zetia) 10 mg PO DAILY High Cholesterol 07/03/22 11/16/24 History
rivaroxaban 20 mg tablet (Xarelto) 20 mg PO QPM Blood Clot 07/03/22 11/16/24 History
Prevention/Tx
Medical Marijuana 1 dose PO HSPRN PRN sleep 06/26/23 11/16/24 History
fluticasone fur. 100 mcg-umeclid 1 inh inhalation R DAILY 09/22/24 11/16/24 History
62.5 mcg-vilant 25 mcg Lung/Breathing Issues
inhalat.powder (Trelegy Ellipta)
albuterol sulfate 2.5 mg/3 mL 2.5 mg inhalation R Q4HPRN PRN sob 11/16/24 11/16/24 History
(0.083 %) solution for nebulization
carvedilol 6.25 mg tablet (Coreg) 6.25 mg PO BID 11/16/24 11/16/24 History
Review of Systems
-
History Source: Patient
All other systems: Negative unless noted
Physical Exam
Vital Signs
Temp Pulse Resp BP Pulse Ox
98.6 F 78 15 148/101 98
11/16/24 10:55 11/16/24 14:15 11/16/24 14:15 11/16/24 14:00 11/16/24 13:18
Lab Results
11/16/24 12:28
11/16/24 12:57
Troponin I < 0.012 ng/ml 11/16/24 12:28
Physical Exam
General: No Apparent Distress and Comfortable
HEENT: Normocephalic, Anicteric and Moist Mucous Membranes
Respiratory: Clear and Non Labored Respirations
Cardiac: S1/S2 and Regular Rhythm
GI: Soft, Non Tender, Non Distended and Normal Bowel Sounds
Musculoskeletal: No Clubbing, No Cyanosis and No Edema
Skin: Warm, Dry and Other (sternotomy well healed)
Neuro: AO x 3
Impression / Plan
-
Primary Art Teacher: Dr. Ирина Sun
Assessment:
Presentation with headache, CP, arm pain
Negative trop x1
HTN
Coronary artery disease
mid RCA hazy 70 to 80% at the proximal edge of the prior stent. Proximal LAD with significant disease 80% with concern regarding another branch vessel either high diagonal or ramus overlapping this area
s/p 3.0 mm Xience to mid RCA 10/14/19
s/p CABGx3 In situ LOAIZA to LAD, Ao to RSVG to ramus versus high diagonal, Ao to RSVG to distal RCA, MAZE, SUDHA clip 09/28/24
Hyperlipidemia with statin intolerance to Lipitor and Crestor currently on Zetia. LDL 62
Paroxysmal Afib
CKD 3b
Improved mixed ischemic and nonischemic CM, EF previously 20%, then 50% 09/2017, then 60-65% by echo 02/28/21, Echo 09/23/24 52%
Frequent PVCs
Hypertension
h/o orthostasis and syncope
Degenerative disc disease
Chronic back pain with history of spinal stenosis and prior back surgery
Alcohol use disorder
Former tobacco use
Echo 02/28/21: EF 60-65%, mild basal inferolateral and basal inferior hypokinesis, mild conc LVH, normal diastolic function, mild MR
Echo 10/09/23: EF 50%, basal inferior and basal inferoseptum are akinetic, moderate concentric LVH, normal RV size and function
ECHO 12/11/23: EF 55 to 60%, severe hypokinesis of basal inferior wall, little significant change compared to prior
ECHO 09/23/24: EF 52%, basal inferior, basal and mid inferolateral, and basal inferoseptal tolentino appear hypokinetic, mild MR, trace AR
Plan:
- Patient presented to [facility] with 2 episodes over the last 3 days of headache, chest pain, arm tingling and pain in the setting of hypertension. His medications were adjusted post CABG, and given GASPER and hyperkalemia his Entresto was stopped 11/11.
He then took 1 Entresto in the setting of hypertension on Tuesday 11/14. ? rebound HTN. head CT negative for acute abnormalities
- His creatinine is 1.8 and potassium is 5.4. As EF is recovered by echo 09/23/2024, would hold off on Entresto at present
- Troponin is negative x 1, will check second
- Check echo in a.m.
- repeat EKG in AM
- Agree with antihypertension regimen uptitration. He has history of orthostasis on Coreg 12.5 mg twice daily in past. He is agreeable to Coreg 12.5 mg every morning and 6.25 mg every afternoon. Will add back Norvasc 2.5 mg at bedtime and follow
blood pressure trends
- will observe overnight
- continue asa, xarelto. in SR by EKG without acute ischemic changes
- continue cardiac rehab
- d/w patient and at bedside
Data Reviewed
-
EKG: Tracing Personally Visualized and interpreted
CT Scan: Report Reviewed by me
Medical Tests (Nuc Med, Echo etc): Report Reviewed by me
Labs: Labs Reviewed by me
Old Records: Reviewed
[2024-11-16] MEDS: COREG 6.25 MG PO (19:55)
[2024-11-16] MEDS: XARELTO 20 MG PO (19:55)
[2024-11-16] MEDS: TYLENOL 1000 MG PO (19:55)
[2024-11-16] MEDS: LOKELMA 10 GRAM PO (21:03)
[2024-11-16] MEDS: NORVASC 2.5 MG PO (22:19)
[2024-11-17 03:40] VITALS: BP 129/92
[2024-11-17 06:00] VITALS: BMI 29.1
[2024-11-17 08:00] VITALS: BP 144/90
[2024-11-17 08:00] LABS: Hematocrit 38.9 % (39.0-52.0); Hemoglobin 12.7 g/dL (13.0-18.0); Mean Corp Hgb Conc. 32.6 g/dL (33.0-37.0); Mean Corpuscular Volume 88.6 fL (80.0-94.0); Platelet Count 461 10^3/uL (130-400); Red Cell Dist. Width 14.2 % (11.5-14.5)
[2024-11-17 08:11] LABS: Troponin I < 0.012 ng/ml
[2024-11-17] MEDS: COREG 12.5 MG PO (08:38)
[2024-11-17] MEDS: NORVASC 5 MG PO (08:38)
[2024-11-17] MEDS: ZETIA 10 MG PO (08:39)
[2024-11-17] MEDS: ASPIR LOW (ENTERIC COATED) 81 MG PO (08:39)
[2024-11-17] MEDS: PROTONIX 40 MG PO (08:39)
[2024-11-17] MEDS: TYLENOL 1000 MG PO (08:48)
--- NOTE | 2024-11-17 09:37 | W.PN.HOSP.TC ---
Today's Communication/Plan
-
Possible dc if ok with cardiology
Assessment / Plan
Assessment / Plan
Physical Exam
General: No Apparent Distress and Comfortable
HEENT: Moist mucous membranes and Atraumatic
Respiratory: Clear; No Wheezes or Rales
Cardiac: S1/S2 and Regular Rhythm; No Murmur
GI: Soft, Non Distended and Normal Bowel Sounds
Genito-urinary: No Leon
Musculoskeletal: No Clubbing, No Cyanosis and No Edema
Skin: No Jaundice
Neuro: AO x 3 and Nonfocal/grossly intact; No Slurred Speech, Facial Droop or Tremors
Psych: Calm and Intact Judgment/Insight
68 years old male presented with infrequent episodes of headache/elevated blood pressure/chest pressure and left-sided tingling
# Uncontrolled essential hypertension
Better controlled
HTN Urgency, resolved
s/p increasing dose of Coreg & adding low dose Amlodipine
# Leukocytosis. No fever or chills. WBC is coming down. f/w blood culture. Urine test showed mild bacteria, but clear overall.
# History of chest pressure/pain
Resolving, likely related to high BP, f/w echo, repeat troponin negative
History of CAD/ CABG in September 2024, sternal sca is healing well, he still has pain in sternoclavicular joint EKG no acute ischemic changes. Follow-up with cardiology recommendation. Appreciate help.
#HFpEF
- History of heart failure with preserved ejection
- Echo 09/23/2024: Normal left ventricular wall thickness. Normal left ventricular chamber size. Low- Normal left ventricular systolic function. Left ventricular ejection fraction is 52% by Kessler's method. Basal inferior wall, basal and mid
inferolateral tolentino, and the basal inferoseptum appear hypokinetic. Normal diastolic function.
# Acute on chronic kidney disease stage IIIb.
-Follow BMP closely
Avoid nephrotoxic agents
# Hyperkalemia. s/p oral one time dose 10 mg Lokelma. Monitor on telemetry
#Paroxysmal Atrial Fibrillation
-c/w Xarelto
#Hyperlipidemia
- Continue statin
#Hx Tobacco Use
CXR showed Hyperaeration suggests a component of COPD. Recommend OP PFT at least 3 months post CABG to give a chance for accurate measurements. His a primary care doctor put him on Trelegy and since then his reactive airway symptoms improved. No
formal diagnosis of COPD.
-Patient stopped smoking since September.
- Patient denies alcohol use.
No hypoxia
Total dc time spent to see the patient, examine the patient, review lab results and data, discuss discharge/ treatment plan with patient, nursing staff around 65 minutes
Anticipated Discharge: Within 24 hours
Subjective/Interval History
-
Date of Service: November 17, 2024
No chest pain
No chills
Feels better
Objective Data
-
Labs:
Laboratory Results
11/17/24
06:41
WBC 12.9 H
Hgb 12.7 L
Hct 38.9 L
Plt Count 461 H
Sodium Pending
Potassium Pending
Chloride Pending
Carbon Dioxide Pending
BUN Pending
Creatinine Pending
Glucose Pending
Calcium Pending
Vital Signs:
Vital Signs
Temp Pulse Resp BP Pulse Ox
98 F 81 18 144/90 100
11/17/24 08:00 11/17/24 08:38 11/17/24 08:00 11/17/24 08:38 11/17/24 08:00
I&O
11/16/24 11/17/24 11/18/24
06:59 06:59 06:59
Intake Total 480 / 480
Balance 480 / 480
--- NOTE | 2024-11-17 10:09 | W.PN.CARDCBS ---
Addendum entered and electronically signed by Anshu Salomon MD 11/17/24 12:51:
I saw and examined the patient.
The Apprentice Photographer's note was reviewed and I agree with the note.
Comment: Briefly, 68-year-old man past medical history of multivessel CAD with recent CABG in September 2024 presenting with headache, chest discomfort and elevated blood pressure.
In the initial postoperative period after his CABG blood pressure was on the low side and patient was discharged with midodrine
Since then blood pressures have been higher and this has been exacerbated by discontinuing his Entresto for GASPER/hyperkalemia
Feels well this AM, no cardiac complaints
BP better controlled today
Continue higher dose of carvedilol
Continue amlodipine
Stable for d/c from my perspective
Original Note:
Today's Communication / Plan
-
Norvasc 5 mg p.o. daily
Coreg 6.25 mg every morning and 12.5 mg p.m.
Aspirin 81 mg daily
Xarelto 20 mg every afternoon
Zetia 10 mg daily
ok for DC to home today
OP cardiac follow up arranged
Impression / Plan
-
Primary Technical Product Manager: Dr. Ирина Sun
Assessment:
Presentation with headache, CP, arm pain
Negative trop x1
HTN
Coronary artery disease
mid RCA hazy 70 to 80% at the proximal edge of the prior stent. Proximal LAD with significant disease 80% with concern regarding another branch vessel either high diagonal or ramus overlapping this area
s/p 3.0 mm Xience to mid RCA 10/14/19
s/p CABGx3 In situ LOAIZA to LAD, Ao to RSVG to ramus versus high diagonal, Ao to RSVG to distal RCA, MAZE, SUDHA clip 09/28/24
Hyperlipidemia with statin intolerance to Lipitor and Crestor currently on Zetia. LDL 62
Paroxysmal Afib
CKD 3b
Improved mixed ischemic and nonischemic CM, EF previously 20%, then 50% 09/2017, then 60-65% by echo 02/28/21, Echo 09/23/24 52%
Frequent PVCs
Hypertension
h/o orthostasis and syncope
Degenerative disc disease
Chronic back pain with history of spinal stenosis and prior back surgery
Alcohol use disorder
Former tobacco use
Echo 02/28/21: EF 60-65%, mild basal inferolateral and basal inferior hypokinesis, mild conc LVH, normal diastolic function, mild MR
Echo 10/09/23: EF 50%, basal inferior and basal inferoseptum are akinetic, moderate concentric LVH, normal RV size and function
ECHO 12/11/23: EF 55 to 60%, severe hypokinesis of basal inferior wall, little significant change compared to prior
ECHO 09/23/24: EF 52%, basal inferior, basal and mid inferolateral, and basal inferoseptal tolentino appear hypokinetic, mild MR, trace AR
Plan:
- Feeling well overnight. No recurrences of chest/arm pain
- AM labs pending
- Trops negative x 2
- In sinus rhythm with rare PVCs on review of telemetry
- Echo pending
- Blood pressure trends improving with adjustment in antihypertensive regimen. Continue Coreg 6.25 mg every morning and 12.5 mg every afternoon, as patient had orthostasis on 12.5mg BID in past. Norvasc 5 mg daily added back to regimen. Follow
blood pressures in outpatient setting
- Continue aspirin, Xarelto
- Continue cardiac rehab
- Will arrange outpatient cardiac follow-up
- okay for discharge to home today
Progress Note - Technical Product Manager
Subjective
Date of Service: November 17, 2024
No recurrence of chest pain, headache, arm pain overnight
Objective
Labs:
11/17/24 06:41
Labs
Hgb 12.7 g/dL (13.0-18.0) L 11/17/24 06:41
Hct 38.9 % (39.0-52.0) L 11/17/24 06:41
Plt Count 461 10^3/uL (130-400) H 11/17/24 06:41
Sodium 136 mmol/L (135-145) 11/16/24 12:57
Potassium 5.4 mmol/L (3.5-5.1) H 11/16/24 12:57
BUN 45 mg/dl (9-20) H 11/16/24 12:57
Creatinine 1.8 mg/dL (0.7-1.3) H 11/16/24 12:57
Glucose 94 mg/dl (70-99) 11/16/24 12:57
Troponins
11/16/24 11/17/24
12:28 07:36
Troponin I < 0.012 < 0.012
Vital Signs and I&O:
Vital Signs
Temp Pulse Resp BP Pulse Ox
98 F 81 18 144/90 100
11/17/24 08:00 11/17/24 08:38 11/17/24 08:00 11/17/24 08:38 11/17/24 08:00
Vital Signs
Temp Pulse Resp BP Pulse Ox
98 F 81 18 144/90 100
11/17/24 08:00 11/17/24 08:38 11/17/24 08:00 11/17/24 08:38 11/17/24 08:00
Intake & Output
11/15/24 11/16/24 11/17/24 11/18/24
07:59 07:59 07:59 07:59
Intake Total 480 / 480
Balance 480 / 480
Physical Exam
Physical Exam
GEN: No distress, awake, alert, oriented x3. up walking with PT
HEENT: supple, anicteric, mmm, EOMI
LUNGS: No audible wheezes
CV: Reg on tele
EXT: No clubbing, cyanosis, edema
NEURO: Gross non-focal
SKIN: warm, pink, dry. No rash
[2024-11-17 10:11] VITALS: BP 134/84; PULSE 89; O2SAT 99
[2024-11-17 10:13] VITALS: BP 134/84; PULSE 89; O2SAT 99
--- NOTE | 2024-11-17 10:31 | PTOTSP ---
Pt presents to OT with report of pain in his left upper chest/clavicle area, left shoulder and L scapular area of 2/10, which increases to 7/10 during UB/LB dressing and gross reaching activities. Pt reports he is scheduled to begin PT in early Nov
to address pain. Pt is currently at independent level with basic self care, transfers and functional mobility without AD. Discussed ADL strategies to compensate for decreased use of LUE during ADLs/IADLs due to pain. Pt receptive to education
provided. No further skilled OT indicated at this time.
--- NOTE | 2024-11-17 10:31 | PTOTSP ---
PATIENT ABLE TO MOBILIZE INDEPENDENTLY WITHOUT A DEVICE WITHOUT COMPLAINTS OF HEADACHE, CHEST PRESSURE OR BILATERAL UE PARESTHESIAS. DOES ENDORSE PAIN IN LEFT UPPER CHEST, NECK, SHOULDER AND SCAPULA WHICH HE IS TO START OUTPATIENT P.T. ON 12/01/24.
WILL DISCHARGE FROM P.T. SERVICES.
[2024-11-17 11:22] VITALS: BP 120/76
[2024-11-17 11:26] LABS: Blood Urea Nitrogen 41 mg/dl (9-20); Calcium 9.3 mg/dl (8.4-10.2); Carbon Dioxide 15 mmol/L (22-30); Chloride 112 mmol/L (98-107); Estimated Creatinine Clearance 52 ml/min; Glucose 90 mg/dl (70-99); Potassium 5.2 mmol/L (3.5-5.1); Sodium 136 mmol/L (135-145); eGFR 50.71
--- NOTE | 2024-11-17 14:03 | CM ---
Alert awake oriented patient who lives with his Jazmyne in a split level home with 7 steps to enter and 7 steps to bed bathroom. He is independent in all ADLs . Hx of cardiac bypass and is current with cardiac out opt rehab, He will resume at dc.He
declined VN . will drive him home.
Has cane walker at home but does not use.
Had VN [facility] hx . No [facility] hx
Pharmacy [facility]
PCP Nikki SOLITARIO
PLAn Home with resumption of cardiac rehab
--- NOTE | 2024-11-17 14:26 | W.DCSUMMARY ---
Discharge Summary
Discharge Data
Date of Admission: 11/16/24
Date of Discharge: 11/17/24
-
Pending Results: No
Hospital Course
68 years old male presented with an episode of elevated blood pressure associated with chest pressure and headache. Patient had recent change to his medication because of his renal function and potassium level. Patient was evaluated by
microbiology professor. Troponin was negative. EKG with no acute ischemic changes. His medications were changed to adjust his blood pressure. Carvedilol was increased. Amlodipine was added. Patient felt better with no recurrent episodes. Master Cook
recommended outpatient follow-up. He had echocardiogram. Patient remained hemodynamically stable. He was noticed to have mild leukocytosis. No fever. Urine test did not show active infection. Blood culture showed no growth to date. Patient
was discharged home in a stable condition.
Discharge Plan
-
Patient Disposition: Home (Routine Discharge)
Discharge Diagnosis/Procedures: High blood pressure: Blood pressure trends improving with adjustment in antihypertensive regimen. You were seen by microbiology professor. You had echocardiogram.
Diet: As tolerated
Referrals:
Hussain Nunez CRNP [Family Provider, Family Practice]
Soledad Michele PA-C [Specified Professional Personl, Cardiology] - 11/25/24 8:20 am
Referral Note: A cardiology follow-up appointment at the [place] office with Dr. Gifford's physician professional nursing assistant, Soledad. Please call with questions
Prescriptions:
New
carvedilol 12.5 mg Tablet
12.5 mg PO DAILY@2000 Qty: 30 0RF
amlodipine 5 mg Tablet
5 mg PO DAILY Qty: 30 0RF
Continued
aspirin 81 MG tablet,delayed release (DR/EC)
81 mg PO DAILY
pantoprazole 40 MG tablet,delayed release (DR/EC)
40 mg PO DAILY
multivitamin with folic acid [Tab-A-Flakito] 1 TABLET tablet
1 tab PO DAILY
acetaminophen 500 mg Tablet
1,000 mg PO Q6HPRN PRN (Reason: mild pain)
ezetimibe [Zetia] 10 mg Tablet
10 mg PO DAILY
Xarelto 20 mg Tablet
20 mg PO QPM
Medical Marijuana
1 dose PO HSPRN PRN (Reason: sleep)
Trelegy Ellipta 100-62.5-25 mcg Blister With Device
1 inh INHALATION R DAILY
albuterol sulfate 2.5 mg /3 mL (0.083 %) Solution For Nebulization
2.5 mg INHALATION R Q4HPRN PRN (Reason: sob)
gabapentin [Neurontin] 100 mg Capsule
100 mg PO HS
Changed
carvedilol [Coreg] 6.25 mg Tablet
6.25 mg PO DAILY Qty: 0 0RF
Rx Instructions:
Every morning
Discharge Orders:
Discharge Patient (As Directed); Ordered 11/17/24
Ordered By: Elier Graves
Discharge Date and Time
Discharge Date/Time: 11/17/24 13:07
Print Language: PAKISTANI
== END 2024-11-17 13:07 | disposition home or self-care (01) | DRG 683 ==
LOC: 4 EAST ACU 16:17
PROVIDERS: ADMITTING PHYSICIAN Internal Medicine; EMERGENCY PHYSICIAN Emergency Medicine; FAMILY PHYSICIAN Nurse Practitioner Family; OTHER PHYSICIAN Internal Medicine Cardiovascular Disease
DX: N17.9 Acute kidney failure, unspecified (principal); I13.0 Hypertensive heart and chronic kidney disease with heart failure and stage 1 through stage 4 chronic kidney disease, or unspecified chronic kidney disease; I50.30 Unspecified diastolic (congestive) heart failure; I42.8 Other cardiomyopathies; N18.32 Chronic kidney disease, stage 3b; D72.829 Elevated white blood cell count, unspecified; I25.10 Atherosclerotic heart disease of native coronary artery without angina pectoris; E87.5 Hyperkalemia; I48.0 Paroxysmal atrial fibrillation; I49.3 Ventricular premature depolarization; F10.90 Alcohol use, unspecified, uncomplicated; M48.00 Spinal stenosis, site unspecified; G89.29 Other chronic pain; M54.9 Dorsalgia, unspecified; Z87.891 Personal history of nicotine dependence; Z79.899 Other long term (current) drug therapy; Z95.1 Presence of aortocoronary bypass graft; Z79.82 Long term (current) use of aspirin; Z79.01 Long term (current) use of anticoagulants
CPT/HCPCS: 70450; 71046; 80048; 80306; 81003; 81015; 84484; 85025; 85027; 87040; 93005; 93308; 93321; 93325; 94760; 97162; 97166; 99285

== ENCOUNTER 2024-11-24 13:42 | Outpatient (RCR) | payer MEDICARE, SELFPAY | END 2024-11-24 23:59 | disposition home or self-care (01) | LOC: CRHB 13:42 | PROVIDERS: ATTENDING PHYSICIAN Internal Medicine Cardiovascular Disease | DX: Z95.1 Presence of aortocoronary bypass graft (principal) | CPT/HCPCS: G0422; G0423 ==

== ENCOUNTER 2024-12-24 14:03 | Outpatient (RCR) | payer MEDICARE, SELFPAY | END 2024-12-24 23:59 | disposition home or self-care (01) | LOC: CRHB 14:03 | PROVIDERS: ATTENDING PHYSICIAN Internal Medicine Cardiovascular Disease | DX: I25.10 Atherosclerotic heart disease of native coronary artery without angina pectoris (principal); Z95.1 Presence of aortocoronary bypass graft | CPT/HCPCS: G0422; G0423 ==

== ENCOUNTER 2025-01-19 13:20 | Outpatient (RCR) | payer MEDICARE, SELFPAY | END 2025-01-19 23:59 | disposition home or self-care (01) | LOC: CRHB 13:20 | PROVIDERS: ATTENDING PHYSICIAN Internal Medicine Cardiovascular Disease | DX: Z95.1 Presence of aortocoronary bypass graft (principal) | CPT/HCPCS: G0422; G0423 ==

== ENCOUNTER → 2025-02-07 11:44 | Outpatient (REF) | payer MEDICARE, SELFPAY ==
[2025-02-07 15:40] LABS: ALT (SGPT) 11 U/L (0-50); AST (SGOT) 21 U/L (17-59); Albumin 4.1 g/dl (3.5-5.0); Alkaline Phosphatase 71 U/L (38-126); Blood Urea Nitrogen 18 mg/dl (9-20); Calcium 9.2 mg/dl (8.4-10.2); Carbon Dioxide 27 mmol/L (22-30); Chloride 105 mmol/L (98-107); Glucose 100 mg/dl (70-99); HDL Cholesterol 75 mg/dl; LDL Cholesterol, Calculated 83 mg/dl; Potassium 5.0 mmol/L (3.5-5.1); Sodium 138 mmol/L (135-145); Total Protein 6.9 g/dl (6.3-8.2); Very Low Density Lipoprotein 21 mg/dl (0-30); eGFR 50.40
[2025-02-07 16:09] LABS: PSA, Total - Screen 0.58 ng/ml (0.0-4.0)
== END ==
LOC: HWLAB 11:44
PROVIDERS: ATTENDING PHYSICIAN Internal Medicine Cardiovascular Disease; FAMILY PHYSICIAN Nurse Practitioner Family
DX: I42.9 Cardiomyopathy, unspecified (principal); I25.10 Atherosclerotic heart disease of native coronary artery without angina pectoris; Z00.00 Encounter for general adult medical examination without abnormal findings; Z13.31 Encounter for screening for depression; I25.2 Old myocardial infarction; I50.22 Chronic systolic (congestive) heart failure; I10 Essential (primary) hypertension; I11.0 Hypertensive heart disease with heart failure; I48.0 Paroxysmal atrial fibrillation; E78.5 Hyperlipidemia, unspecified; J45.40 Moderate persistent asthma, uncomplicated; Z12.5 Encounter for screening for malignant neoplasm of prostate; Z23 Encounter for immunization; I71.40 Abdominal aortic aneurysm, without rupture, unspecified; M25.572 Pain in left ankle and joints of left foot; R73.01 Impaired fasting glucose
CPT/HCPCS: 36415; 80053; 80061; G0103

== ENCOUNTER 2025-02-09 14:44 | Outpatient (RCR) | payer MEDICARE, SELFPAY | END 2025-02-09 14:50 | disposition home or self-care (01) | LOC: CRHB 14:44 | PROVIDERS: ATTENDING PHYSICIAN Internal Medicine Cardiovascular Disease | DX: Z95.1 Presence of aortocoronary bypass graft (principal) | CPT/HCPCS: G0422; G0423 ==

== ENCOUNTER → 2025-02-22 12:57 | Outpatient (REF) | payer MEDICARE, SELFPAY | LOC: RAD 12:57 | PROVIDERS: ATTENDING PHYSICIAN Nurse Practitioner Family | DX: R60.0 Localized edema (principal) | CPT/HCPCS: 93971 ==